=== PATIENT | male | born 1955 | race Caucasian/White ===

== ENCOUNTER 2017-07-18 15:42 | Inpatient (IN) | payer MEDICAID, OTHER ==
[~2017-07-18] VITALS: Ht 172.7 cm; Wt 87.1 kg
[2017-07-18 16:08] VITALS: BP 114/76
--- NOTE | 2017-07-18 16:35 | Physical Therapy Evaluation ---
PT Evaluation-General Medical Diagnosis Admission Date 07/18/2017 Medical Diagnosis: Lewy Body dementia Onset Date: Jul 11, 2017 Therapy Diagnosis Therapy Diagnosis: weakness; abn gait Precautions Precautions/Isolations: Standard Precautions Referral Physician: James Reason for Referral: Evaluation/Treatment Medical History Pertinent Medical History: HTN Additional Medical History anxiety, LBP Current History Pt admitted for aggressive rehab post acute admit at [facility] with progressive rigidity, stiffness, restlessness, shuffling gait and freezing episodes. Diagnosis of Lewy Body Dementia. Reviewed History: Yes Social History Home: Single Level Current Living Status: Spouse Entry Into Home: Stairs Without Railing (3) Prior/Core FIM Prior Level of Function Functional [place] Measure 0=Not Assessed/NA 4=Minimal Assistance 1=Total Assistance 5=Supervision or Setup 2=Maximal Assistance 6=Modified [place] 3=Moderate Assistance 7=Complete [place] Bed Mobility: 7 Transfers (B,C,W/C) (FIM): 7 Gait: 7 Pt's reports until mid April, he was driving. Reports a recent "slow down" in which she has to assist with ADL's to keep him on task. PT Evaluation-Current Subjective Limited conversation. Denies pain. Agreeable to PT. Answers questions when asked. Pain Numeric Pain Scale: 0-No Pain Location: No Pain Reported Objective Patient Orientation: Person, Confused, Place, Time, Situation Problem Solving: Fair He was able to voice orientation x 4 but still seems very flat and confused like. ROM/Strength ROM Lower Extremities WNL Strenght Lower Extremities WNL Integumentary/Posture Integumentary Refer to nursing notes. Bowel Incontinence: No Bladder Incontinence: No Posture normal and symmetrical; slight rounded shoulders but not of functional concern Neuromuscular (Tone, Coordination, Reflexes) Intact and functional; Sensory Vision: Wears Glasses Hearing: Functional Hand Dominance: Right Sensation Right Lower Extremit: Intact Sensation Left Lower Extremity: Intact Transfers Functional [place] Measure 0=Not Assessed/NA 4=Minimal Assistance 1=Total Assistance 5=Supervision or Setup 2=Maximal Assistance 6=Modified [place] 3=Moderate Assistance 7=Complete IndependenceIRFPAI Quality Coding Scale 6 Independent with activity with or without an assistive device 5 Patient requires set up or clean up by helper. Patient completes activity by themselves 4 Supervision or touching assist (CGA). [place] provide cues , steadying assist 3 The helper provides less than half the effort to complete the activity 2 The helper provides more than half the effort to complete the activity 1 Dependent. The helper does all the effort to complete an activity 7 Patient refused to complete or attempt activity 9 The patient did not perform the activity before the current illness or injury 88 Not attempted due to Medical conditions or safety concerns Transfers (B, C, W/C) (FIM): 4 (CGa for safety) Roll Left to Right (QC): 5 Supine to/from Sit: 4 Sit to/from Stand: 4 bed t/f WC(FIM only if WC use): 4 Sit to Lying (QC): 4 Lying to Sitting/Side of Bed(Q: 4 Sit to Stand (QC): 4 Chair/Uvz-me-Jmvrg Xfer(QC): 4 Car Transfer (QC): 4 CGA for safety and skilled cues to sequence and for safety. Gait Mode of Locomotion: Walk Anticipated Mode of Locomotion: Walk Gait (FIM): 4 Distance (FIM): 3=150 ft Walk 10 feet (QC): 4 Walk 50 ft with 2 Turns(QC): 4 Walk 150 ft (QC): 4 Walking 10ft/uneven surface-QC: 4 Gait Assistive Device: None Comments/Gait Description Tends to be shuffled at times but not constantly; he also tends to scissor at times but again, not consistently. Heel strike and toe off noted; 2-3 unsteady episodes, but corrected with only CGA. Wheelchair Training Does the Pt Use a Wheelchair?: No Stairs Stairs (FIM): 2 Level of Assist: 4 (CGA) 1 Step (curb) (QC): 4 4 Steps (QC): 4 12 Steps (QC): 88 reciprocal gait on the steps Balance Sitting Static: Good Sitting Dynamic: Good Standing Static: Fair Standing Dynamic: Fair Picking up an Object (QC): 4 Assessment/Needs Pt presents with a flat affect, limited vocalization but does answer questions appropriately. In general he seems distracted during evaluation but follows 2- 3 step cues, completes tasks and is participatory. His gait pattern can be unsafe at times due to narrow RADHA and his standing dynamic balance seems affected. In addition, decreased awareness and problem solving may be of safety concern. he will benefit from skilled PT to work on functional safety, gait, balance and transfers as well as develop techniques to optimize safety. Rehab Potential: Good PT Short Term Goals Short Term Goals Time Frame: Jul 25, 2017 Transfers (B,C,W/C) (FIM): 5 Gait (FIM): 5 PT Health And Safety Director Goals Health And Safety Director Goals PT Health And Safety Director Goals Time Frame: Aug 01, 2017 Transfers (B,C,W/C) (FIM): 7 Sit to Lying (QC): 6 Lying-Sitting on Side/Bed(QC): 6 Sit to Stand (QC): 6 Roll Left to Right (QC): 6 Chair/Esz-jw-Qkugl Xfer(QC): 6 Car Transfer (QC): 6 Does the Patient Walk: Yes Gait (FIM): 7 Gait distance (FIM): 3=150 ft Walk 10 feet (QC): 6 Walk 10ft-Uneven Surface(QC): 6 Walk 50ft with 2 Turns (QC): 6 Walk 150 ft (QC): 6 Gait Assistive Device: None Does the Pt use WC or Scooter?: No Stairs (FIM): 7 # of Steps: 12 1 Step (curb) (QC): 6 4 Steps (QC): 6 12 Steps (QC): 6 Stairs Level Of Assist: 7 Picking up an Object (QC): 6 PT Plan Problem List Problem List: Activity Tolerance, Functional Strength, Safety, Balance, Gait, Transfer Treatment/Plan Treatment Plan: Continue Plan of Care Treatment Plan: Bed Mobility, Education, Functional Activity Fyae, Functional Strength, Group Therapy, Gait, Safety, Therapeutic Exercise, Transfers Treatment Duration: Aug 01, 2017 Frequency: Modified Program (IRF) Estimated Hrs Per Day: 1.5 hours per day Patient and/or Family Agrees t: Yes Safety Risks/Education Patient Education: Transfer Techniques, Safety Issues Teaching Recipient: Patient, Family Teaching Methods: Discussion Response to Teaching: Reinforcement Needed Time/GCodes Time In: 1605 Time Out: 1635 Total Billed Treatment Time: 30 Total Billed Treatment visit EVM 30 RICHARD BARBOUR PT Jul 18, 2017 16:35
[2017-07-18 17:52] VITALS: BP 107/73
[2017-07-18] MEDS ORDERED: PHARMACY TO DOSE IM SCH (18:30)
[2017-07-18] MEDS: LORazepam 1 MG (ATIVAN) TAB PO SCH (20:47)
[2017-07-18] MEDS: PRAZOSIN 2 MG PO SCH (20:48)
[2017-07-19 05:58] VITALS: BP 102/71
[2017-07-19] MEDS: LORazepam 1 MG (ATIVAN) TAB PO SCH ×3 (08:36→20:36)
[2017-07-19] MEDS: CYANOCOBALAMIN 500 MCG TAB (VITAMIN B-12) PO SCH (08:36)
--- NOTE | 2017-07-19 10:52 | Occupational Therapy Eval ---
OT Evaluation-General/PLF Medical Diagnosis Admission Date Jul 18, 2017 at 16:08 Medical Diagnosis: Lewy Body dementia Onset Date: Jul 11, 2017 Therapy Diagnosis Therapy Diagnosis: impaired mobility Height/Weight Height (Feet): 5 Height (Inches): 8.00 Weight (Pounds): 192 Weight (Ounces): 1.0 Precautions Precautions/Isolations: Standard Precautions Safety Interventions: Bed Exit Alarm, Move Closer to Desk, Reorient-PRN Weight Bear Status Weight Bearing Restriction: Weight Bearing/Tolerated Referral Physician: James Referral Reason: Activity Tolerance, Self Care, Evaluation/Treatment, Strengthening/ROM Medical History Pertinent Medical History: HTN Additional Medical History aphasia, encephalopathy, dysphagia, anxiety, catatonic presentation. Current History Pt. has difficulty stating history or goals. Does state that his spouse has to help him bathe, dress, and toilet. However, upon testing, pt. is able to do these things. Pt. demonstrates flat affect. Reviewed History: Yes Social History Home: Single Level Current Living Status: Spouse Entry Into Home: Stairs Without Railing (3) ADL-Prior Level of Function ADL PLOF Comments Pt. is unable to completely articulate what he needs assist with. States that his spouse helps him, but unable to say with what parts exactly. DME/Equipment: Bath Chair, Tub/Shower Occupation: Retired from [employer] Current Status Subjective Pt. does not report pain. Appearance Pt. up in chair. Agrees to shower. Mental Status/Objective Patient Orientation: Unable to Assess Current Glasses/Contacts: Yes Hand Dominance: Right Upper Extremity ROM WFL Upper Extremity Strength 5/5 with muscle testing. However, pt. states that he is weak in arms. ADL-Treatment Functional [place] Measure 0=Not Assessed/NA 4=Minimal Assistance 1=Total Assistance 5=Supervision or Setup 2=Maximal Assistance 6=Modified [place] 3=Moderate Assistance 7=Complete IndependenceIRFPAI Quality Coding Scale 6 Independent with activity with or without an assistive device 5 Patient requires set up or clean up by helper. Patient completes activity by themselves 4 Supervision or touching assist (CGA). [place] provide cues , steadying assist 3 The helper provides less than half the effort to complete the activity 2 The helper provides more than half the effort to complete the activity 1 Dependent. The helper does all the effort to complete an activity 7 Patient refused to complete or attempt activity 9 The patient did not perform the activity before the current illness or injury 88 Not attempted due to Medical conditions or safety concerns Grooming (FIM): 5 (Set up to comb hair.) Bathing (FIM): 5 (SBA to shower all parts.) Shower/Bathe Self (QC): 4 Upper Body Dressing (FIM): 5 Upper Body Dressing (QC): 4 Lower Body Dressing (FIM): 5 Lower Body Dressing (QC): 4 On/Off Footwear (QC): 4 Transfers (B, C, W/C) (FIM): 5 (Pt. requires SBA to ambulate without assistive device.) Shower Transfer (FIM): 5 Other Treatments After showering, pt. agrees to ambulate to therapy gym. Completes armbike at mod resistance to work on overall endurance and strength. No difficulty noted. Ambulated back to room. All needs met. Education OT Patient Education: Exercise program, Modified ADL techniques, Progress toward Goal/Update tx plan, Purpose of tx/functional activities, Reviewed precautions, Rehab process, Transfer techniques Teaching Recipient: Patient Teaching Methods: Demonstration, Discussion Response to Teaching: Verbalize Understanding, Return Demonstration OT Short Term Goals Short Term Goals Transfers (B,C,W/C) (FIM): 5 1=Demonstrate adherence to instructed precautions during ADL tasks. 2=Patient will verbalize/demonstrate understanding of assistive devices/ modifications for ADL. 3=Patient will improve strength/tolerance for activity to enable patient to perform ADL's. OT Broke Beater Goals Jail Goals Time Frame: Jul 26, 2017 Eating (FIM): 6 Eating (QC): 6 Groomin Oral Hygiene (QC): 6 Bathing(FIM): 5 Shower/Bathe Self (QC): 5 Upper Body Dressing(FIM): 6 Upper Body Dressing (QC): 6 Lower Body Dressing(FIM): 6 Lower Body Dressing (QC): 6 On/Off Footwear (QC): 6 Toileting(FIM): 6 Toileting Hygiene (QC): 6 Transfers (B,C,W/C) (FIM): 6 Toilet/Commode Transfer(FIM): 6 Toilet/Commode Transfer (QC): 6 Shower Transfer(FIM): 5 Additional Goals: 1-Demonstrate ADL Tasks, 2-Verbalize Understanding, 3- ImproveStrength/Faye 1=Demonstrate adherence to instructed precautions during ADL tasks. 2=Patient will verbalize/demonstrate understanding of assistive devices/ modifications for ADL. 3=Patient will improve strength/tolerance for activity to enable patient to perform ADL's. OT Education/Plan Problem List/Assessment Assessment: Decreased Activ Tolerance, Decreased Safety Aware, Impaired Cognition, Impaired I ADL's, Impaired Self-Care Skills Discharge Recommendations Plan/Recommendations: Continue POC Therapy D/C Recommendations: Home w/ Family Support Treatment Plan/Plan of Care Treatment,Training & Education: Yes Patient would benefit from OT for education, treatment and training to promote independence in ADL's, mobility, safety and/or upper extremity function for ADL' s. Plan of Care: ADL Retraining, Functional Mobility, Group Exercise/Act as Ind, UE Funct Exercise/Act Treatment Duration: Jul 26, 2017 Frequency: At least 5 of 7 days/Wk (IRF) Estimated Hrs Per Day: 1.5 hours per day Agreement: Yes Rehab Potential: Good Time/GCodes Start Time: 09:00 Stop Time: 10:00 Total Time Billed (hr/min): 60 Billed Treatment Time 1, EVM x 15minutes, ADL x 30minutes, Ex x 15minutes NATY BERGER OT Jul 19, 2017 10:52
--- NOTE | 2017-07-19 13:14 | Physical Therapy Daily Note ---
PT Daily Note-Current Subjective No complaints. Agreeable to PT. Limited verbalization. Pain Numeric Pain Scale: 0-No Pain Location: No Pain Reported Mental Status Patient Orientation: Person, Place, Time, Situation Transfers Functional [place] Measure 0=Not Assessed/NA 4=Minimal Assistance 1=Total Assistance 5=Supervision or Setup 2=Maximal Assistance 6=Modified [place] 3=Moderate Assistance 7=Complete IndependenceIRFPAI Quality Coding Scale 6 Independent with activity with or without an assistive device 5 Patient requires set up or clean up by helper. Patient completes activity by themselves 4 Supervision or touching assist (CGA). [place] provide cues , steadying assist 3 The helper provides less than half the effort to complete the activity 2 The helper provides more than half the effort to complete the activity 1 Dependent. The helper does all the effort to complete an activity 7 Patient refused to complete or attempt activity 9 The patient did not perform the activity before the current illness or injury 88 Not attempted due to Medical conditions or safety concerns Transfers (B, C, W/C) (FIM): 5 Roll Left to Right (QC): 5 Supine to/from Sit: 5 Sit to/from Stand: 5 Sit to Lying (QC): 5 Sit to Stand (QC): 5 Chair/Qsx-nw-Flhts Xfer(QC): 5 SBA with transfers for safety cues Gait Training Does the Patient Walk?: Yes Gait (FIM): 5 Distance (FIM): 3=150 ft Distance: 150 ft x 2; 300 ft x 2; 120 ft x 2 Walk 10 feet (QC): 5 Walk 50 ft with 2 Turns(QC): 5 Walk 150 ft (QC): 5 Gait Assistive Device: None Pt walked around unit as well as off the unit to increase functional distance. We used the elevators and this therapist provided cuing for him to problem solve using the buttons to retrieve and use the elevator. Gait inculded up/ down a slope that is 50 ft long; completed with SBA. Pt able to select proper buttons for use of elevator. Balance Special Test Comments Completed the Webb Balance test. Pt scored 44/56. This indicates that a cane may be beneficial for safety with gait; however, I feel that the additional device may be a tripping hazard for the patient. Treatments Functional gait and balance training. Assessment Current Status: Good Progress His balance is impaired as evidenced by score of 44/56 on the Webb. He was able to follow multi step cues and use the elevator appropriately. PT Short Term Goals Short Term Goals Time Frame: Jul 25, 2017 Transfers (B,C,W/C) (FIM): 5 Gait (FIM): 5 PT Undercoater Goals Usp Goals PT Undercoater Goals Time Frame: Aug 01, 2017 Transfers (B,C,W/C) (FIM): 7 Sit to Lying (QC): 6 Lying-Sitting on Side/Bed(QC): 6 Sit to Stand (QC): 6 Roll Left to Right (QC): 6 Chair/Fbh-nj-Ztbdb Xfer(QC): 6 Car Transfer (QC): 6 Does the Patient Walk: Yes Gait (FIM): 7 Gait distance (FIM): 3=150 ft Walk 10 feet (QC): 6 Walk 10ft-Uneven Surface(QC): 6 Walk 50ft with 2 Turns (QC): 6 Walk 150 ft (QC): 6 Gait Assistive Device: None Does the Pt use WC or Scooter?: No Stairs (FIM): 7 # of Steps: 12 1 Step (curb) (QC): 6 4 Steps (QC): 6 12 Steps (QC): 6 Stairs Level Of Assist: 7 Picking up an Object (QC): 6 PT Plan Problem List Problem List: Activity Tolerance, Functional Strength, Safety, Balance, Gait Treatment/Plan Treatment Plan: Continue Plan of Care Treatment Plan: Bed Mobility, Education, Functional Activity Faye, Functional Strength, Group Therapy, Gait, Safety, Therapeutic Exercise, Transfers Treatment Duration: Aug 01, 2017 Frequency: Modified Program (IRF) Estimated Hrs Per Day: 1.5 hours per day Patient and/or Family Agrees t: Yes Safety Risks/Education Patient Education: Safety Issues Teaching Recipient: Patient Teaching Methods: Discussion Response to Teaching: Reinforcement Needed Time/GCodes Time In: 800 Time Out: 900 Total Billed Treatment Time: 60 Total Billed Treatment visit GT 30 NM 30 RICHARD BARBOUR PT Jul 19, 2017 13:14
--- NOTE | 2017-07-19 13:29 | ST Dysphagia Evaluation ---
Speech Evaluation-General Medical Diagnosis Lewy Body Dementia Onset Date: Jul 11, 2017 Therapy Diagnosis Therapy Diagnosis: Oropharyngeal Swallow WNL Precautions Precautions/Isolations: Standard Precautions Referral Referring Physician: Dr. Eduardo Ramirez Reason for Referral: Evaluation/Treatment Clinical Bedside Swallowing Evaluation Medical History Pertinent Medical History: HTN Current History The patient was recently admitted to [facility] with a diagnosis of Lewy Body Dementia. Reviewed History: Yes Social History Current Living Status: Spouse Speech PLF/Current-Dysphagia Prior Level of Function The patient provided limited verbalization. The patient stated, "Sometimes pills feel like they stick." The patient denied signs/symptoms of aspiration with any consistency he currently consumes. The patient consumes a regular diet with thin liquids at home. Subjective The patient was seated upright in recliner upon entrance. The patient was agreeable to participation in the bedside swallowing evaluation. The patient localized the above noted globus sensation to the laryngeal region. Cognitive Status Patient Orientation: Person, Place, Time, Situation Oral Motor Skills Dentition: Natural Current Food Consistancy: Regular, Thin Liquids Oral Expression Ability: Mild Impairment Voice Voice Phonatory-Based Quality: Breathy Voice Pitch: Mildly High Voice Loudness: Moderately Soft/Quiet Face Facial Symmetry: Symmetrical Oral-Facial Assessment Oral-Facial Dentition: Normal Labial Seal Description: Normal Smile: Normal Puff Cheeks: Normal Lingual Protrusion: Normal Lingual ROM: Normal Lingual Strength: Normal Pharynx Velopharyngeal Move.: Normal Volitional Dry Swallow: Yes Dysphagia Evaluation Consistencies Presented: Regular, Thin Liquid No oral phase impairments were noted with any consistency provided. - No pharyngeal impairments were noted with any consistency provided. - No signs/symptoms of aspiration were demonstrated with any consistency provided. The patient denied a globus sensation throughout the assessment. Dietary Recommendations: Regular Liquid Recommendations: Thin Swallowing Precautions: Alternate Liquids/Solids, Small Bites and Sips, Sitting Upright 90 Degrees Dysphagia Evaluation Summary The patient demonstrated an oropharyngeal swallow function within normal limits. Speech-Plan Treatment Plan Speech Therapy Treatment Plan: Discontinue ST Evaluation, only. Frequency: Modified Program (IRF) (Evaluation, only.) Estimated Hrs Per Day: Other (Evaluation, only.) Rehab Potential: Good Safety Risks/Education Teaching Recipient: Patient Teaching Methods: Discussion Response to Teaching: Verbalize Understanding Education Topics Provided: Results, Recommendations, Plan of Care Time Speech Therapy Time In: 10:00 Speech Therapy Time Out: 10:15 Total Billed Time: 15 Billed Treatment Time 1, [place] Jul 19, 2017 13:29
--- NOTE | 2017-07-19 13:40 | ST Cognitive Linguistic Eval ---
Speech Evaluation-General Medical Diagnosis Lewy Body Dementia Onset Date: Jul 11, 2017 Therapy Diagnosis Therapy Diagnosis: Mild to Moderate Cognitive Impairment Precautions Precautions/Isolations: Standard Precautions Referral Referring Physician: Dr. Eduardo Ramirez Reason for Referral: Evaluation/Treatment Cognitive, Speech, and Language Evaluation Medical History Pertinent Medical History: HTN Current History The patient was recently admitted to [facility] with a diagnosis of Lewy Body Dementia. Reviewed History: Yes Social History Home: Single Level (Four steps for entrance.) Current Living Status: Spouse Speech PLF-Current Status Prior Level of Function The patient stated, "I have a hard time telling my feelings, like saying thank you and such." The patient denied additional difficulties with speech, language, or cognition. Subjective The patient was seated upright in recliner upon entrance. The patient greeted the clinician and was agreeable to participation in the cognitive, speech, and language evaluation. To note, the patient demonstrates an extremely flat affect and monotone expression throughout the session. Limited verbalizations are provided by the patient. Language Eval: Auditory Comprehends Simple Yes/No Ques: Functional Indent/Objects Multiple Garcia: Functional Ident/Pics in Multiple Garcia: Functional Follows 1-Step Commands: Functional Follows Complex Directions: Functional Follows General Conversations: Functional The patient displays a mild to moderate delay while following more complex instructions, however, consistently completes each instruction with high accuracy. Language Eval: Verbal Language Completes Spontaneous Greeting: Functional Produces Auto, Serial Info: Functional (Delay noted with response.) Imitates Simple Words/Phrases: Functional Word Finding: Mild (The patient is able to name nine animals in a time frame of one minute.) Requests Basic Needs: Mild (The patient appears somewhat somnolent and rarely initiates conversation or requests.) States Basic Personal Info: Functional Language Evaluation: Reading Comprehends Single Nouns: Functional Follows Simple Written Direct: Functional Comprehends Multiple Sentences: Functional Language Evaluation: Writing Copies/Traces: Functional Writes to Simple Dictation: Functional Writes Personal Information: Functional Cognitive Patient Orientation The patient is independently oriented to self, location, month, year, and day of week. Objective Cognitive Domain Attention: Mild Memory: Mild Problem Solving: Mild Visuospatial Skills: WNL Clock Drawing Severity Rating: WNL Objective Oral Motor/Speech Production The patient displays a reduced rate of speech, however, remains 100% intelligible in known and unknown contexts. Impression The patient demonstrates a mild to moderate cognitive deficit, most notably with social language and memory. Communication/Social Cognition Comprehension: 6 (Glasses.) Expression: 4 (Reduced rate of speech, poor initiation of speech/conversation) Social Interaction: 2 (Patient consitently displays a flat affect, limited eye contact, and poor initiation.) Problem Solvin Memory: 3 Speech Patient Assess Expression of Ideas/Wants: Exhibits (3) Understanding [place] Content: Usually Understands (3) Brief Interview-Mental Status: Yes Repetition of Three Words: Three (3) Temporal Orientation: Year: Correct (3) Temporal Orientation: Month: Accurate within 5 days(2) Temporal Orientation: Day: Correct (1) Recall : Wear to say "Sock": Yes,after cueing (1) Recall : Color: Yes, after cueing (1) Recall : Bed: Yes,after cueing (1) Speech Short Term Goals Short Term Goals Short Term Goals 1. The patient will recall and demonstrate three functional memory strategies for use at home with 80% accuracy and mild clinician cueing. 2. The patient will initiate a conversational topic at least one time throughout a thirty minute treatment session. 3. The patient will accurately demonstrate appropriate facial expressions and gestures towards emotional structured situations with 80% accuracy and mild clinician cueing. Time Frame-STG: Two Weeks Speech Chcf Goals [employer] Goals 1. The patient will display improved social interaction with increased periods of facial expression and conversation initiation. Time Frame: Three Weeks Comprehension: 6 Expression: 5 Social Interaction: 4 Problem Solvin Memory: 4 Speech-Plan Treatment Plan Speech Therapy Treatment Plan: Continue Plan of Care Continue skilled speech pathology to target functional social interaction and expressive language. Treatment Duration: August 09, 2017 Frequency: 3 times per week Estimated Hrs Per Day: .5 hour per day Rehab Potential: Guarded Safety Risks/Education Teaching Recipient: Patient Teaching Methods: Discussion Response to Teaching: Verbalize Understanding Education Topics Provided: Results, Recommendations, Plan of Care Time Speech Therapy Time In: 10:15 Speech Therapy Time Out: 10:30 Total Billed Time: 15 Billed Treatment Time 1 [facility] CHRIS,PACO Jul 19, 2017 13:40
[2017-07-19] MEDS ORDERED: CITA10TA7 PO (13:59)
[2017-07-19] MEDS ORDERED: PRAZ2CAP PO (13:59)
--- NOTE | 2017-07-19 14:38 | Physical Therapy Daily Note ---
PT Daily Note-Current Subjective Agreeble Transfers Functional [place] Measure 0=Not Assessed/NA 4=Minimal Assistance 1=Total Assistance 5=Supervision or Setup 2=Maximal Assistance 6=Modified [place] 3=Moderate Assistance 7=Complete IndependenceIRFPAI Quality Coding Scale 6 Independent with activity with or without an assistive device 5 Patient requires set up or clean up by helper. Patient completes activity by themselves 4 Supervision or touching assist (CGA). [place] provide cues , steadying assist 3 The helper provides less than half the effort to complete the activity 2 The helper provides more than half the effort to complete the activity 1 Dependent. The helper does all the effort to complete an activity 7 Patient refused to complete or attempt activity 9 The patient did not perform the activity before the current illness or injury 88 Not attempted due to Medical conditions or safety concerns Gait Training Gait (FIM): 5 Gait Assistive Device: None 400 ft with SBA on the unit. Pt ambulated to/from the bathroom. SBA with toilet transfers and clothing management. Pt in chair with chair alarm activitated post treatment. Exercises NuStep Minutes: 15 NuStep Workload: 4 Assessment Cooperative. Tolerated well PT Short Term Goals Short Term Goals Time Frame: Jul 25, 2017 Transfers (B,C,W/C) (FIM): 5 Gait (FIM): 5 PT Hand Braille Transcriber Goals Hand Braille Transcriber Goals PT Hand Braille Transcriber Goals Time Frame: Aug 01, 2017 Transfers (B,C,W/C) (FIM): 7 Sit to Lying (QC): 6 Lying-Sitting on Side/Bed(QC): 6 Sit to Stand (QC): 6 Roll Left to Right (QC): 6 Chair/Ywh-rz-Caajc Xfer(QC): 6 Car Transfer (QC): 6 Does the Patient Walk: Yes Gait (FIM): 7 Gait distance (FIM): 3=150 ft Walk 10 feet (QC): 6 Walk 10ft-Uneven Surface(QC): 6 Walk 50ft with 2 Turns (QC): 6 Walk 150 ft (QC): 6 Gait Assistive Device: None Does the Pt use WC or Scooter?: No Stairs (FIM): 7 # of Steps: 12 1 Step (curb) (QC): 6 4 Steps (QC): 6 12 Steps (QC): 6 Stairs Level Of Assist: 7 Picking up an Object (QC): 6 PT Plan Problem List Problem List: Activity Tolerance, Functional Strength, Safety Treatment/Plan Treatment Plan: Continue Plan of Care Treatment Plan: Bed Mobility, Education, Functional Activity Faye, Functional Strength, Group Therapy, Gait, Safety, Therapeutic Exercise, Transfers Treatment Duration: Aug 01, 2017 Frequency: Modified Program (IRF) Estimated Hrs Per Day: 1.5 hours per day Patient and/or Family Agrees t: Yes Time/GCodes Time In: 1415 Time Out: 1438 Total Billed Treatment Time: 23 Total Billed Treatment visit EX 15 Gt 8 RICHARD BARBOUR PT Jul 19, 2017 14:38
--- NOTE | 2017-07-19 15:06 | Therapy Group Daily Note ---
Therapy Daily Group Note Patient Education Topic Home Safety, Other List Below (Proper Handwashing) Exercises LE Seated Exercise, UE Exercise Other/Notes Pt ambulates to PT/OT group w/out AD. Group consisted of introductions (name, where you're from, what you like to do during the summer), socialization, Proper Handwashing, Home Safety and Seated UE/LE exercise. Pt was quite and reserved, but did complete UE/LE exercises. Pt ambulates back to room, w/out AD , to rest at end of group TX. Start Time: 13:00 Stop Time: 14:10 Total Billed Treatment Time: 70 Total Billed Treatment 1, GRP MAYTEPHUONG OTRIZ OUTSIDE OPERATOR Jul 19, 2017 15:06
[2017-07-19 17:15] VITALS: BP 113/72
[2017-07-19] MEDS: PRAZOSIN 2 MG PO SCH (20:36)
[2017-07-20 05:06] VITALS: BP 97/65
--- NOTE | 2017-07-20 09:25 | Occupational Ther Daily Note ---
OT Current Status-Daily Note Subjective "OK" Pain Numeric Pain Scale: 0-No Pain Appearance Patient supine in bed upon OT arrival. Agreeable to showering and working in the clinic. Mental Status/Objective Patient Orientation: Unable to Assess, [place] Functional [place] Measure 0=Not Assessed/NA 4=Minimal Assistance 1=Total Assistance 5=Supervision or Setup 2=Maximal Assistance 6=Modified [place] 3=Moderate Assistance 7=Complete [place] ADL-Treatment Agreed to shower this am. OT retrieved all items for patient to shower and dress. He was independent in all activities. Not very talkative but answered yes no appropriately. Functional [place] Measure 0=Not Assessed/NA 4=Minimal Assistance 1=Total Assistance 5=Supervision or Setup 2=Maximal Assistance 6=Modified [place] 3=Moderate Assistance 7=Complete IndependenceIRFPAI Quality Coding Scale 6 Independent with activity with or without an assistive device 5 Patient requires set up or clean up by helper. Patient completes activity by themselves 4 Supervision or touching assist (CGA). [place] provide cues , steadying assist 3 The helper provides less than half the effort to complete the activity 2 The helper provides more than half the effort to complete the activity 1 Dependent. The helper does all the effort to complete an activity 7 Patient refused to complete or attempt activity 9 The patient did not perform the activity before the current illness or injury 88 Not attempted due to Medical conditions or safety concerns Other Treatment Patient ambulated to the clinic without device and independently. Completed 10+ minutes of arm bike followed by klein bag toss with 1# weights to the arms x multiple reps.Completed minimal resistive theraband x 20 reps each. Tolerated all well,addressing upper body strength and endurance work for return to ADL once home. OT Short Term Goals Short Term Goals Transfers (B,C,W/C) (FIM): 5 1=Demonstrate adherence to instructed precautions during ADL tasks. 2=Patient will verbalize/demonstrate understanding of assistive devices/ modifications for ADL. 3=Patient will improve strength/tolerance for activity to enable patient to perform ADL's. OT Staff Weapons Officer Goals Retirement Goals Time Frame: Jul 26, 2017 Eating (FIM): 6 Eating (QC): 6 Groomin Oral Hygiene (QC): 6 Bathing(FIM): 5 Shower/Bathe Self (QC): 5 Upper Body Dressing(FIM): 6 Upper Body Dressing (QC): 6 Lower Body Dressing(FIM): 6 Lower Body Dressing (QC): 6 On/Off Footwear (QC): 6 Toileting(FIM): 6 Toileting Hygiene (QC): 6 Transfers (B,C,W/C) (FIM): 6 Toilet/Commode Transfer(FIM): 6 Toilet/Commode Transfer (QC): 6 Shower Transfer(FIM): 5 Comprehension(FIM): 6 Expression (FIM): 5 Social Interaction(FIM): 4 Problem Solving(FIM): 5 Memory(FIM): 4 Additional Goals: 1-Demonstrate ADL Tasks, 2-Verbalize Understanding, 3- ImproveStrength/Faye 1=Demonstrate adherence to instructed precautions during ADL tasks. 2=Patient will verbalize/demonstrate understanding of assistive devices/ modifications for ADL. 3=Patient will improve strength/tolerance for activity to enable patient to perform ADL's. OT Education/Plan Discharge Recommendations Plan/Recommendations: Continue POC Treatment Plan/Plan of Care Patient would benefit from OT for education, treatment and training to promote independence in ADL's, mobility, safety and/or upper extremity function for ADL' s. Plan of Care: ADL Retraining, Functional Mobility, Group Exercise/Act as Ind, UE Funct Exercise/Act Treatment Duration: Jul 26, 2017 Frequency: At least 5 of 7 days/Wk (IRF) Estimated Hrs Per Day: 1.5 hours per day Agreement: Yes Rehab Potential: Guarded Time/GCodes Start Time: 08:05 Stop Time: 09:05 Total Time Billed (hr/min): 60 Billed Treatment Time Visit x 1, ADL x 2, Ex x 2 RANDY ALBRIGHT OT Jul 20, 2017 09:25
[2017-07-20] MEDS: CYANOCOBALAMIN 500 MCG TAB (VITAMIN B-12) PO SCH (09:26)
[2017-07-20] MEDS: LORazepam 1 MG (ATIVAN) TAB PO SCH ×3 (09:27→21:33)
--- NOTE | 2017-07-20 11:00 | Speech Therapy Daily Note ---
Speech Daily Progress Note Subjective Date Seen by Provider: Jul 20, 2017 Time Seen by Provider: 09:00 The patient was seated upright in recliner upon entrance. The patient greeted the clinician and was agreeable to participation in the speech and language treatment session. To note, the patient did initiate a greeting on this date, however, continued to display flat affect and limited interactions following. Objective To improve therapy tasks, a more detailed evaluation was provided on this date to focus on patient's cognitive deficits. The patient participated in the Cognitive Linguistic Quick Test (CLQT) and demonstrated a score of 2.6 correlating to a mild cognitive impairment. The patient demonstrated difficulty with attention through limited story retelling and poor maze completion; difficulty with memory through poor story retelling, design memory, and generative naming; difficulty with executive functioning through poor design generation, symbol trails, and mazes. The patient's largest deficits were executive functioning and memory (moderate impairment). The patient displayed mild impairments in attention, language, and visuospatial skills. Assessment Assessment Current Status: Good Progress Treatment Plan Continue Plan of Care Communication Comprehension: 6 (Glasses.) Expression: 4 (Reduced rate of speech, poor initiation of speech/conversation) Social Cognition Social Interaction: 2 (Patient consitently displays a flat affect, limited eye contact, and poor initiation.) Problem Solvin Memory: 3 Speech Short Term Goals Short Term Goals Short Term Goals 1. The patient will recall and demonstrate three functional memory strategies for use at home with 80% accuracy and mild clinician cueing. 2. The patient will initiate a conversational topic at least one time throughout a thirty minute treatment session. 3. The patient will accurately demonstrate appropriate facial expressions and gestures towards emotional structured situations with 80% accuracy and mild clinician cueing. 4. The patient will display 70% accuracy with structured executive function tasks such as mazes, trail-making, and sequencing with mild clinician verbal prompting. Time Frame-STG: Two Weeks Speech Mcfp Goals Mcfp Goals 1. The patient will display improved social interaction with increased periods of facial expression and conversation initiation. Time Frame: Three Weeks Comprehension: 6 Expression: 5 Social Interaction: 4 Problem Solvin Memory: 4 Speech-Plan Treatment Plan Speech Therapy Treatment Plan: Continue Plan of Care Continue skilled speech pathology to target improved socialization, executive functions, and memory. Treatment Duration: August 09, 2017 Frequency: 3 times per week Estimated Hrs Per Day: .5 hour per day Rehab Potential: Guarded Safety Risks/Education Teaching Recipient: Patient Teaching Methods: Discussion Response to Teaching: Verbalize Understanding Education Topics Provided: Results, Recommendations, Plan of Care Time Speech Therapy Time In: 09:00 Speech Therapy Time Out: 10:00 Total Billed Time: 60 Billed Treatment Time 1MELIDA ELIZABETH ST Jul 20, 2017 11:00
--- NOTE | 2017-07-20 11:55 | Physical Therapy Daily Note ---
PT Daily Note-Current Subjective Long discussion attempting to facilitate STM and LTM of pts personal and medical history. Pt. agrees to rx. Pt. states that the droop of his left eye is old history and the eye Dr states " all people do that as they age" Pain Numeric Pain Scale: 0-No Pain Appearance flat affect, does not initiate conversation but responds when asked questions. Mental Status Patient Orientation: Person, Place, Time Transfers Functional [place] Measure 0=Not Assessed/NA 4=Minimal Assistance 1=Total Assistance 5=Supervision or Setup 2=Maximal Assistance 6=Modified [place] 3=Moderate Assistance 7=Complete IndependenceIRFPAI Quality Coding Scale 6 Independent with activity with or without an assistive device 5 Patient requires set up or clean up by helper. Patient completes activity by themselves 4 Supervision or touching assist (CGA). [place] provide cues , steadying assist 3 The helper provides less than half the effort to complete the activity 2 The helper provides more than half the effort to complete the activity 1 Dependent. The helper does all the effort to complete an activity 7 Patient refused to complete or attempt activity 9 The patient did not perform the activity before the current illness or injury 88 Not attempted due to Medical conditions or safety concerns Transfers (B, C, W/C) (FIM): 6 Scootin Rollin Supine to/from Sit: 7 Sit to/from Stand: 6 pt. assumed quadruped position and did crawling as well as floor TRF with CGA to SBA Gait Training Does the Patient Walk?: Yes Gait (FIM): 5 Distance (FIM): 3=150 ft (150x3) Gait Level of Assist: 5 Gait Persons Needed: 1 Gait Assistive Device: None pt. with several episodes of veering left and or slightly bumping in to obstacles on left as well as noted toe drag on left many times. Stair Training Stair Training: Handrails/: 2 handrails Stairs (FIM): 5 #of Steps: 12 Stairs: Pattern: Reciprocal Level of Assist: 5 pt. needed constant reminder and instruction to use one or both rails, when descending pts descending heel tended to scrape or not clear step and pt. needed instruction but did not always heed warning Exercises Supine Ex: Bridging, Ankle pumps, Quad Set, Rolling, Glut sets, Heel Slides, Short Arc Quads, Scooting, Straight leg raise, Hip abd/add Supine Reps: 15 Seated Therapy Exercises: Long arc quads, Hip flexion Seated Reps: 15 side lying and prone exercises with some difficulty with hip ext in prone. NuStep Minutes: 10 NuStep Workload: 3 Treatments worked on communication and expression as well as memory . Pt. made good effort and states he "just woke up one day and couldnt remember things" Balance challenged derived from GOEL for alt steps, SLS, and heel toe stance still challenge pt. see on GOEL Assessment Current Status: Good Progress pt. with noted left side eye droop and left side weakness in LLE PT Short Term Goals Short Term Goals Time Frame: Jul 25, 2017 Transfers (B,C,W/C) (FIM): 5 Gait (FIM): 5 PT Alf Goals Field Hockey Coach Goals PT Field Hockey Coach Goals Time Frame: Aug 01, 2017 Transfers (B,C,W/C) (FIM): 7 Sit to Lying (QC): 6 Lying-Sitting on Side/Bed(QC): 6 Sit to Stand (QC): 6 Roll Left to Right (QC): 6 Chair/Emx-tg-Mmynr Xfer(QC): 6 Car Transfer (QC): 6 Does the Patient Walk: Yes Gait (FIM): 7 Gait distance (FIM): 3=150 ft Walk 10 feet (QC): 6 Walk 10ft-Uneven Surface(QC): 6 Walk 50ft with 2 Turns (QC): 6 Walk 150 ft (QC): 6 Gait Assistive Device: None Does the Pt use WC or Scooter?: No Stairs (FIM): 7 # of Steps: 12 1 Step (curb) (QC): 6 4 Steps (QC): 6 12 Steps (QC): 6 Stairs Level Of Assist: 7 Picking up an Object (QC): 6 PT Plan Treatment/Plan Treatment Plan: Continue Plan of Care Treatment Plan: Bed Mobility, Education, Functional Activity Faye, Functional Strength, Group Therapy, Gait, Safety, Therapeutic Exercise, Transfers Treatment Duration: Aug 01, 2017 Frequency: Modified Program (IRF) Estimated Hrs Per Day: 1.5 hours per day Patient and/or Family Agrees t: Yes Safety Risks/Education Patient Education: Gait Training, Transfer Techniques, Steps, Correct Positioning, Disease Process, Safety Issues Teaching Recipient: Patient Teaching Methods: Demonstration, Discussion Response to Teaching: Verbalize Understanding, Return Demonstration, Reinforcement Needed Time/GCodes Time In: 1000 Time Out: 1130 Total Billed Treatment Time: 90 Total Billed Treatment 1,EX30mm,FA35m,GT25m G Codes Necessary: BRUCE Bautista [employer] HOME DEMONSTRATOR Jul 20, 2017 11:55
--- NOTE | 2017-07-20 13:37 | Occupational Ther Daily Note ---
OT Current Status-Daily Note Subjective Pt alert, sitting in recliner. Pt did not speak, did look at WHITE in acknowledgement. Mental Status/Objective Functional [place] Measure 0=Not Assessed/NA 4=Minimal Assistance 1=Total Assistance 5=Supervision or Setup 2=Maximal Assistance 6=Modified [place] 3=Moderate Assistance 7=Complete [place] ADL-Treatment Pt had wet pants on, possibly incontinent. WHITE asked if pt had any clothing to osman into and pt ambulated to closet to see. No clothing in closet so pt sat in recliner while WHITE got clothing from laundry. Pt then took clothing and set self up for shower. Pt did complete shower and dressing by self. During standing in shower, pt slight LOB though caught self. Pt then completed grooming at sink in standing. Pt was able to set self up for lunch, finger food no need for utensils. After therapy, pt sitting in recliner with call light/phone in reach. Safety measures in place. All needs met in room. Functional [place] Measure 0=Not Assessed/NA 4=Minimal Assistance 1=Total Assistance 5=Supervision or Setup 2=Maximal Assistance 6=Modified [place] 3=Moderate Assistance 7=Complete IndependenceIRFPAI Quality Coding Scale 6 Independent with activity with or without an assistive device 5 Patient requires set up or clean up by helper. Patient completes activity by themselves 4 Supervision or touching assist (CGA). [place] provide cues , steadying assist 3 The helper provides less than half the effort to complete the activity 2 The helper provides more than half the effort to complete the activity 1 Dependent. The helper does all the effort to complete an activity 7 Patient refused to complete or attempt activity 9 The patient did not perform the activity before the current illness or injury 88 Not attempted due to Medical conditions or safety concerns Eating (FIM): 6 Eating (QC): 6 Grooming (FIM): 7 Oral Hygiene (QC): 6 Bathing (FIM): 6 Shower/Bathe Self (QC): 6 Upper Body (FIM): 7 Upper Body Dressing (QC): 6 Lower Body Dressing (FIM): 7 Lower Body Dressing (QC): 6 On/Off Footwear (QC): 6 Shower Transfer(FIM): 7 OT Short Term Goals Short Term Goals Transfers (B,C,W/C) (FIM): 5 1=Demonstrate adherence to instructed precautions during ADL tasks. 2=Patient will verbalize/demonstrate understanding of assistive devices/ modifications for ADL. 3=Patient will improve strength/tolerance for activity to enable patient to perform ADL's. OT Urology Surgeon Goals Urology Surgeon Goals Time Frame: Jul 26, 2017 Eating (FIM): 6 Eating (QC): 6 Groomin Oral Hygiene (QC): 6 Bathing(FIM): 5 Shower/Bathe Self (QC): 5 Upper Body Dressing(FIM): 6 Upper Body Dressing (QC): 6 Lower Body Dressing(FIM): 6 Lower Body Dressing (QC): 6 On/Off Footwear (QC): 6 Toileting(FIM): 6 Toileting Hygiene (QC): 6 Transfers (B,C,W/C) (FIM): 6 Toilet/Commode Transfer(FIM): 6 Toilet/Commode Transfer (QC): 6 Shower Transfer(FIM): 5 Comprehension(FIM): 6 Expression (FIM): 5 Social Interaction(FIM): 4 Problem Solving(FIM): 5 Memory(FIM): 4 Additional Goals: 1-Demonstrate ADL Tasks, 2-Verbalize Understanding, 3- ImproveStrength/Faye 1=Demonstrate adherence to instructed precautions during ADL tasks. 2=Patient will verbalize/demonstrate understanding of assistive devices/ modifications for ADL. 3=Patient will improve strength/tolerance for activity to enable patient to perform ADL's. OT Education/Plan Discharge Recommendations Plan/Recommendations: Continue POC Treatment Plan/Plan of Care Patient would benefit from OT for education, treatment and training to promote independence in ADL's, mobility, safety and/or upper extremity function for ADL' s. Plan of Care: ADL Retraining, Functional Mobility, Group Exercise/Act as Ind, UE Funct Exercise/Act Treatment Duration: Jul 26, 2017 Frequency: At least 5 of 7 days/Wk (IRF) Estimated Hrs Per Day: 1.5 hours per day Agreement: Yes Rehab Potential: Guarded Time/GCodes Start Time: 12:15 Stop Time: 12:45 Total Time Billed (hr/min): 30 Billed Treatment Time 1 visit-ADL 2 (30 min) RICHARD HERNANDEZ Jul 20, 2017 13:37
--- NOTE | 2017-07-20 14:32 | Therapy Group Daily Note ---
Therapy Daily Group Note Patient Education Topic Home Safety, Other List Below (What is a Stroke, S/S, Risk Factors, Prevention and BP & P Taken ) Exercises LE Seated Exercise, UE Exercise Other/Notes Pt ambulated to group w/out AD. Group consisted of introductions and daily question (Name, Where From, answered question that involved memory and critical thinking), UE/LE EX, Topic of Discussion "What is a Stroke, S/S, Risk Factors, Prevention". Pt tended to not participate unless prompted to do so. Per part of the Topic Discussion, pts BP & P were taken. BP 103/70 P 77 Pt returned to room at end of group, with nurse call, phone, chair alarm on. Start Time: 13:00 Stop Time: 14:00 Total Billed Treatment Time: 60 Total Billed Treatment 1, GRP GREG WATERS PT Jul 20, 2017 14:32
[2017-07-20 17:24] VITALS: BP 108/61
[2017-07-20] MEDS: PRAZOSIN 2 MG PO SCH (21:34)
[2017-07-21 06:00] VITALS: BP 103/68
[2017-07-21] MEDS: CYANOCOBALAMIN 500 MCG TAB (VITAMIN B-12) PO SCH (08:37)
[2017-07-21] MEDS: LORazepam 1 MG (ATIVAN) TAB PO SCH ×3 (08:39→21:11)
--- NOTE | 2017-07-21 10:14 | Physical Therapy Daily Note ---
PT Daily Note-Current Subjective Pt. more flat in affect. Min to no eye contact, non verbal unless really encouraged to respond. needed many cues and instruction to follow task commands Pain Numeric Pain Scale: 0-No Pain Transfers Functional [place] Measure 0=Not Assessed/NA 4=Minimal Assistance 1=Total Assistance 5=Supervision or Setup 2=Maximal Assistance 6=Modified [place] 3=Moderate Assistance 7=Complete IndependenceIRFPAI Quality Coding Scale 6 Independent with activity with or without an assistive device 5 Patient requires set up or clean up by helper. Patient completes activity by themselves 4 Supervision or touching assist (CGA). [place] provide cues , steadying assist 3 The helper provides less than half the effort to complete the activity 2 The helper provides more than half the effort to complete the activity 1 Dependent. The helper does all the effort to complete an activity 7 Patient refused to complete or attempt activity 9 The patient did not perform the activity before the current illness or injury 88 Not attempted due to Medical conditions or safety concerns Transfers (B, C, W/C) (FIM): 5 Scootin Rollin Supine to/from Sit: 6 Sit to/from Stand: 5 Bed to/from Chair: 5 Car Transfer (QC): 5 Gait Training Does the Patient Walk?: Yes Gait (FIM): 5 Distance (FIM): 3=150 ft (175x3) Gait Level of Assist: 5 Gait Persons Needed: 1 Gait Assistive Device: FWW pt. with diminished balance this date without AD, initiated instruction/use of FWW. pt. with safer gait but needed instruction to use device, pt. running device in to objects and wall x 3 with little regard when warned against it prior to incident Balance Special Test Comments SBA to Mod I car TRF Exercises NuStep Minutes: 10 NuStep Workload: 4 Treatments nustep for coordination of LEs, leg presses on Nustep x 10 after Assessment Current Status: Fair Progress needs AD this date, diminished balance PT Short Term Goals Short Term Goals Time Frame: Jul 25, 2017 Transfers (B,C,W/C) (FIM): 5 Gait (FIM): 5 PT Alf Goals Alf Goals PT Alf Goals Time Frame: Aug 01, 2017 Transfers (B,C,W/C) (FIM): 7 Sit to Lying (QC): 6 Lying-Sitting on Side/Bed(QC): 6 Sit to Stand (QC): 6 Rollin Roll Left to Right (QC): 6 Chair/Csr-ge-Mgnqe Xfer(QC): 6 Car Transfer (QC): 6 Does the Patient Walk: Yes Gait (FIM): 7 Gait distance (FIM): 3=150 ft Walk 10 feet (QC): 6 Walk 10ft-Uneven Surface(QC): 6 Walk 50ft with 2 Turns (QC): 6 Walk 150 ft (QC): 6 Gait Assistive Device: None Does the Pt use WC or Scooter?: No Stairs (FIM): 7 # of Steps: 12 1 Step (curb) (QC): 6 4 Steps (QC): 6 12 Steps (QC): 6 Stairs Level Of Assist: 7 Picking up an Object (QC): 6 PT Plan Treatment/Plan Treatment Plan: Continue Plan of Care Treatment Plan: Bed Mobility, Education, Functional Activity Faye, Functional Strength, Group Therapy, Gait, Safety, Therapeutic Exercise, Transfers Treatment Duration: Aug 01, 2017 Frequency: Modified Program (IRF) Estimated Hrs Per Day: 1.5 hours per day Patient and/or Family Agrees t: Yes Safety Risks/Education Patient Education: Gait Training, Transfer Techniques, Correct Positioning, Safety Issues Teaching Recipient: Patient Teaching Methods: Demonstration, Discussion Response to Teaching: Verbalize Understanding, Return Demonstration, Reinforcement Needed Time/GCodes Time In: 930 Time Out: 1000 Total Billed Treatment Time: 30 Total Billed Treatment 1,EX10m,GT20m G Codes Necessary: BRUCE Bautista PUBLIC HEALTH PHYSICIAN Jul 21, 2017 10:14
--- NOTE | 2017-07-21 14:22 | Consultation ([facility]) ---
HPI History of Present Illness: 62 yo M transferred from after hospitalization for rapidly progressive dementia. Patient has now been transferred to the rehab unit and we have been asked to consult. Upon chart review patient was diagnosed with Lewy body dementia and presented in a catatonic state to . He was seen by neurology and psych and showed some improvement after he was started on medications. Patient is now verbal and answering questions appropriately. He has been participating in PT and has been showing improvement. Patient has a h/o anxiety and HTN prior to hospitalization. He denies any other medical problems. Source: patient, old records Exam Limitations: no limitations Date seen by provider: Jul 21, 2017 Time Seen by Provider: 12:45 Attending Physician Eduardo Ramirez MD [facility] Consult Date of Admission Jul 18, 2017 at 16:08 Home Medications Home Medications Reviewed patient Home Medication Reconciliation performed by pharmacy medication reconciliations substation maintenance technician and/or nursing. Patients Allergies have been reviewed. Allergies Coded Allergies: No Known Allergies (Verified Allergy, Unknown, 07/18/17) [id number] Hx Patient Social History Living Status: Lives with Alcohol Use: Denies Use Recreational Drug Use: No Smoking Status: Never a Smoker Recent Foreign Travel: No Contact w/other who traveled: No Recent Hopitalizations: Yes Recent Infectious Disease Expo: No Physical Abuse Screen: No Sexual Abuse: No Past Medical History Anxiety HTN Family Medical History Family History: FH: dementia G8 SISTER FH: neurologic disorder G8 SISTER Review of Systems ([facility]) Constitutional: No chills, No fever; malaise, weakness EENTM: no symptoms reported Respiratory: no symptoms reported; No cough, No dyspnea on exertion, No short of breath Cardiovascular: no symptoms reported; No chest pain, No edema, No palpitations Gastrointestinal: no symptoms reported; No abdominal pain, No constipation, No diarrhea, No nausea, No vomiting Genitourinary: no symptoms reported; No dysuria, No frequency, No hematuria Musculoskeletal: no symptoms reported; No back pain, No joint pain, No muscle pain Skin: No lesions, No rash Psychiatric/Neurological: Depressed; Denies Headache, Denies Numbness Physical Exam-([facility]) Physical Exam Vital Signs VS - Last 72 Hours, by Label 07/18/17 07/18/17 07/18/17 07/18/17 16:08 16:56 17:52 21:00 Temp 97.0 97.1 Pulse 77 75 Resp 18 18 B/P (MAP) 114/76 (89) 107/73 (84) Pulse Ox 98 98 98 O2 Delivery Room Air Room Air Room Air 07/19/17 07/19/17 07/19/17 07/19/17 05:58 09:32 17:15 20:30 Temp 97.9 98.1 Pulse 89 78 Resp 18 18 B/P (MAP) 102/71 (81) 113/72 (86) Pulse Ox 97 97 O2 Delivery Room Air Room Air Room Air 07/20/17 07/20/17 07/20/17 07/20/17 05:06 08:44 17:24 21:00 Temp 97.4 97.8 Pulse 70 81 Resp 18 18 B/P (MAP) 97/65 (76) 108/61 (77) Pulse Ox 94 98 O2 Delivery Room Air Room Air Room Air Room Air 07/21/17 07/21/17 06:00 09:00 Temp 97.0 Pulse 61 Resp 18 B/P (MAP) 103/68 (80) Pulse Ox 94 O2 Delivery Room Air Room Air Capillary Refill : General Appearance: WD/WN, no apparent distress HEENT: PERRL/EOMI Neck: non-tender, full range of motion Respiratory: chest non-tender, lungs clear, normal breath sounds, no respiratory distress, no accessory muscle use Cardiovascular: normal peripheral pulses, regular rate, rhythm, no edema, no murmur Gastrointestinal: normal bowel sounds, non tender, soft, no organomegaly Extremities: no pedal edema, no calf tenderness Neurologic/Psychiatric: 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-XII nml as tested, alert Skin: normal color, warm/dry Lymphatic: no adenopathy Assessment/Plan Assessment/Plan Admission Status: Inpatient Order (span 2 midnights) Reason for Inpatient Admission: rehab (1) Lewy body dementia with behavioral disturbance Status: Acute Assessment & Plan: - Continue Ativan (2) HTN (hypertension) Status: Chronic Assessment & Plan: - Well controlled Qualifiers: Qualified Codes: I10 - Essential (primary) hypertension (3) Anxiety Status: Chronic Assessment & Plan: - Patient states that it is controlled at this time Clinical Quality Measures DVT/VTE Risk/Contraindication: Risk Factor Score Per Nursin RFS Level Per Nursing on Admit: 2=Moderate NICOLE RODRIGUEZ MD Jul 21, 2017 14:22
[2017-07-21 17:31] VITALS: BP 96/60
[2017-07-21] MEDS: PRAZOSIN 2 MG PO SCH (21:11)
[2017-07-22 05:44] VITALS: BP 108/73
[2017-07-22] MEDS: CYANOCOBALAMIN 500 MCG TAB (VITAMIN B-12) PO SCH (09:20)
[2017-07-22] MEDS: LORazepam 1 MG (ATIVAN) TAB PO SCH ×3 (09:20→20:40)
[2017-07-22 17:30] VITALS: BP 99/66
[2017-07-22] MEDS: PRAZOSIN 2 MG PO SCH (21:33)
[2017-07-22 21:34] VITALS: BP 102/73
[2017-07-23 05:57] VITALS: BP 104/71
[2017-07-23] MEDS: LORazepam 1 MG (ATIVAN) TAB PO SCH ×3 (08:28→20:58)
[2017-07-23] MEDS: CYANOCOBALAMIN 500 MCG TAB (VITAMIN B-12) PO SCH (08:28)
--- NOTE | 2017-07-23 10:00 | Physical Therapy Daily Note ---
PT Daily Note-Current Subjective Patient in recliner pre tx, agrees to PT, no complaints of pain. Appearance Patient in recliner post tx with nurse call, phone, tray, all needs met. Mental Status Patient Orientation: Person, Place, Situation Transfers Functional [place] Measure 0=Not Assessed/NA 4=Minimal Assistance 1=Total Assistance 5=Supervision or Setup 2=Maximal Assistance 6=Modified [place] 3=Moderate Assistance 7=Complete IndependenceIRFPAI Quality Coding Scale 6 Independent with activity with or without an assistive device 5 Patient requires set up or clean up by helper. Patient completes activity by themselves 4 Supervision or touching assist (CGA). [place] provide cues , steadying assist 3 The helper provides less than half the effort to complete the activity 2 The helper provides more than half the effort to complete the activity 1 Dependent. The helper does all the effort to complete an activity 7 Patient refused to complete or attempt activity 9 The patient did not perform the activity before the current illness or injury 88 Not attempted due to Medical conditions or safety concerns Transfers (B, C, W/C) (FIM): 5 Scootin Rollin Roll Left to Right (QC): 6 Supine to/from Sit: 6 Sit to/from Stand: 6 Sit to Lying (QC): 6 Sit to Stand (QC): 6 Chair/Nrq-zy-Wzlbp Xfer(QC): 4 Bed to/from Chair: 5 Car Transfer (QC): 6 Patient just needs SBA for transfers, occasional cues for direction Gait Training Gait (FIM): 5 Distance: 300'x2 Gait Level of Assist: 5 Gait Persons Needed: 1 Gait Assistive Device: None Patient has steady ambulation, no LOB, occasional cues for direction Stair Training Stair Training: Handrails/: 1 handrail Stairs (FIM): 5 #of Steps: 12 Stairs: Pattern: Reciprocal Level of Assist: 5 Exercises Supine Ex: Bridging, Ankle pumps, Quad Set, Glut sets, Heel Slides, Short Arc Quads, Straight leg raise, Hip abd/add Supine Reps: 20 Standing: Hip Abduction, Hamstring curls, Heel/toe raises, Marching, Mini squats Standing Reps: 20 NuStep Minutes: 15 NuStep Workload: 5 Treatments bed mobility, transfers, ambulation, functional strengthening Assessment Current Status: Fair Progress improved general mobility PT Short Term Goals Short Term Goals Time Frame: Jul 25, 2017 Transfers (B,C,W/C) (FIM): 5 Gait (FIM): 5 PT Clinic Charge Nurse Goals Clinic Charge Nurse Goals PT Assisted Goals Time Frame: Aug 01, 2017 Transfers (B,C,W/C) (FIM): 7 Sit to Lying (QC): 6 Lying-Sitting on Side/Bed(QC): 6 Sit to Stand (QC): 6 Rollin Roll Left to Right (QC): 6 Chair/Sen-qi-Uieqm Xfer(QC): 6 Car Transfer (QC): 6 Does the Patient Walk: Yes Gait (FIM): 7 Gait distance (FIM): 3=150 ft Walk 10 feet (QC): 6 Walk 10ft-Uneven Surface(QC): 6 Walk 50ft with 2 Turns (QC): 6 Walk 150 ft (QC): 6 Gait Assistive Device: None Does the Pt use WC or Scooter?: No Stairs (FIM): 7 # of Steps: 12 1 Step (curb) (QC): 6 4 Steps (QC): 6 12 Steps (QC): 6 Stairs Level Of Assist: 7 Picking up an Object (QC): 6 PT Plan Problem List Problem List: Activity Tolerance, Functional Strength, Safety, Balance, Gait, Transfer Treatment/Plan Treatment Plan: Continue Plan of Care Treatment Plan: Bed Mobility, Education, Functional Activity Faye, Functional Strength, Group Therapy, Gait, Safety, Therapeutic Exercise, Transfers Treatment Duration: Aug 01, 2017 Frequency: Modified Program (IRF) Estimated Hrs Per Day: 1.5 hours per day Patient and/or Family Agrees t: Yes Safety Risks/Education Patient Education: Gait Training, Transfer Techniques, Correct Positioning, Safety Issues Teaching Recipient: Patient Teaching Methods: Demonstration, Discussion Response to Teaching: Reinforcement Needed Time/GCodes Time In: 900 Time Out: 1000 Total Billed Treatment Time: 60 Total Billed Treatment 1 visit EX 40' GT 20' GREG WATERS PT Jul 23, 2017 10:00
--- NOTE | 2017-07-23 11:10 | Speech Therapy Daily Note ---
Speech Daily Progress Note Subjective Date Seen by Provider: Jul 23, 2017 Time Seen by Provider: 10:00 The patient was seated upright in recliner upon entrance. The patient responded to the clinician's greeting and asked a return question (which is an improvement in comparison to the prior sessions). The patient was agreeable to participation in the speech, language, and cognitive therapy session. Objective To work towards executive function tasks, as well as, functional information the patient was provided exercises from the HERB (Assessment of Language Related Functional Activities). The patient displayed the below results with mild verbal prompting throughout each task: - Telling Time: The patient was asked to state the name as placed by the clinician on an analog clock. The patient displayed 60% accuracy misinterpreting the minute and hour hand on one occasion, as well as, stating the hour ahead in two situations. The patient displayed improved accuracy with verbal prompts to 80%. - Addressing and Envelope: The patient was able to address an envelope to a specific recipient, as well as, place his return address. The patient displayed 90% accuracy, as he was unable to provide his correct zip code. - Solving Daily Math Problems: The patient was asked functional math problems such as recipe adjustments, time calculations, and bill/coin addition. The patient displayed 60% accuracy with this task with mild clinician verbal prompting. In attempts to increase verbalizations and topic initiation, the patient was asked specific questions and asked to provide appropriate responses. The patient completed the task with high accuracy, however, prompts were required for increased length of responses. Additionally, the patient was asked situational questions. The patient displays good accuracy with this task, requiring prompting for increased length of responses. To note, the patient displayed slightly improved affect on this date. Assessment Assessment Current Status: Good Progress Treatment Plan Continue Plan of Care Communication Comprehension: 6 (Glasses.) Expression: 4 (Reduced rate of speech, poor initiation of speech/conversation) Social Cognition Social Interaction: 2 (Patient consitently displays a flat affect, limited eye contact, and poor initiation.) Problem Solvin Memory: 3 Speech Short Term Goals Short Term Goals Short Term Goals 1. The patient will recall and demonstrate three functional memory strategies for use at home with 80% accuracy and mild clinician cueing. 2. The patient will initiate a conversational topic at least one time throughout a thirty minute treatment session. PROGRESSING, IMPROVEMENT NOTED (). 3. The patient will accurately demonstrate appropriate facial expressions and gestures towards emotional structured situations with 80% accuracy and mild clinician cueing. 4. The patient will display 70% accuracy with structured executive function tasks such as mazes, trail-making, and sequencing with mild clinician verbal prompting. INITIATED (07/23/2017) Time Frame-STG: Two Weeks Speech [facility] Goals Business Process Associate Goals 1. The patient will display improved social interaction with increased periods of facial expression and conversation initiation. Time Frame: Three Weeks Comprehension: 6 Expression: 5 Social Interaction: 4 Problem Solvin Memory: 4 Speech-Plan Treatment Plan Speech Therapy Treatment Plan: Continue Plan of Care Continue skilled speech pathology to target topic initiation and expressive language. Treatment Duration: August 09, 2017 Frequency: 3 times per week Estimated Hrs Per Day: .5 hour per day Rehab Potential: Guarded Safety Risks/Education Teaching Recipient: Patient Teaching Methods: Discussion Response to Teaching: Return Demonstration Education Topics Provided: Orientation Strategies, Topic Initiation Discharge Recommendations Speech Therapy Outpatient Time Speech Therapy Time In: 10:00 Speech Therapy Time Out: 11:00 Total Billed Time: 60 Billed Treatment Time KwasiMELIDA ELIZABETH ST Jul 23, 2017 11:10
--- NOTE | 2017-07-23 12:00 | Occupational Ther Daily Note ---
OT Current Status-Daily Note Subjective Pt in bed, agrees to treatment. No c/o pain. Mental Status/Objective Functional [place] Measure 0=Not Assessed/NA 4=Minimal Assistance 1=Total Assistance 5=Supervision or Setup 2=Maximal Assistance 6=Modified [place] 3=Moderate Assistance 7=Complete [place] ADL-Treatment Supine to sit with modified independence. Sit to stand with modified independence. Pt retrieved clothing from closet without assistance. Transfer to [facility] over toilet with modified independence. Pt able to complete toileting hygiene and clothing management without assistance. [place] clothing without assist. Pt transferred to walk in shower with modified independence. Bathing completed using hand held shower. Pt able to wash/dry all areas with modified independence. Pt completed dressing tasks with modified independence. Stood with good balance during pant hike. Dons socks and shoes with modified independence. Pt stood at sink to brush teeth and comb hair with modified independence. Functional [place] Measure 0=Not Assessed/NA 4=Minimal Assistance 1=Total Assistance 5=Supervision or Setup 2=Maximal Assistance 6=Modified [place] 3=Moderate Assistance 7=Complete IndependenceIRFPAI Quality Coding Scale 6 Independent with activity with or without an assistive device 5 Patient requires set up or clean up by helper. Patient completes activity by themselves 4 Supervision or touching assist (CGA). [place] provide cues , steadying assist 3 The helper provides less than half the effort to complete the activity 2 The helper provides more than half the effort to complete the activity 1 Dependent. The helper does all the effort to complete an activity 7 Patient refused to complete or attempt activity 9 The patient did not perform the activity before the current illness or injury 88 Not attempted due to Medical conditions or safety concerns Grooming (FIM): 6 Bathing (FIM): 6 Upper Body (FIM): 6 Lower Body Dressing (FIM): 6 On/Off Footwear (QC): 6 Toileting (FIM): 6 Toilet/Commode Transfer (FIM): 6 Shower Transfer(FIM): 6 Other Treatment Gait to therapy gym. Arm bike x12 minutes to increase overall strength and activity tolerance needed for functional tasks. Pt completed activity with moderate resistance and slow pace. No rest breaks needed. Fine motor task with nuts and bolts with 1# weights in place to increase strength and coordination skills. Pt able to complete task without difficulty. Pt completed putty activity with bilateral hands to increase strength and coordination. Pt able to remove small beads from putty without assistance. Pt returned to room, sitting in chair with needs met and chair alarm in place after session. OT Short Term Goals Short Term Goals Transfers (B,C,W/C) (FIM): 5 1=Demonstrate adherence to instructed precautions during ADL tasks. 2=Patient will verbalize/demonstrate understanding of assistive devices/ modifications for ADL. 3=Patient will improve strength/tolerance for activity to enable patient to perform ADL's. OT Asset Manager Goals Long-Term Goals Time Frame: Jul 26, 2017 Eating (FIM): 6 Eating (QC): 6 Groomin Oral Hygiene (QC): 6 Bathing(FIM): 5 Shower/Bathe Self (QC): 5 Upper Body Dressing(FIM): 6 Upper Body Dressing (QC): 6 Lower Body Dressing(FIM): 6 Lower Body Dressing (QC): 6 On/Off Footwear (QC): 6 Toileting(FIM): 6 Toileting Hygiene (QC): 6 Transfers (B,C,W/C) (FIM): 6 Toilet/Commode Transfer(FIM): 6 Toilet/Commode Transfer (QC): 6 Shower Transfer(FIM): 5 Comprehension(FIM): 6 Expression (FIM): 5 Social Interaction(FIM): 4 Problem Solving(FIM): 5 Memory(FIM): 4 Additional Goals: 1-Demonstrate ADL Tasks, 2-Verbalize Understanding, 3- ImproveStrength/Faye 1=Demonstrate adherence to instructed precautions during ADL tasks. 2=Patient will verbalize/demonstrate understanding of assistive devices/ modifications for ADL. 3=Patient will improve strength/tolerance for activity to enable patient to perform ADL's. OT Education/Plan Discharge Recommendations Plan/Recommendations: Continue POC Treatment Plan/Plan of Care Patient would benefit from OT for education, treatment and training to promote independence in ADL's, mobility, safety and/or upper extremity function for ADL' s. Plan of Care: ADL Retraining, Functional Mobility, Group Exercise/Act as Ind, UE Funct Exercise/Act Treatment Duration: Jul 26, 2017 Frequency: At least 5 of 7 days/Wk (IRF) Estimated Hrs Per Day: 1.5 hours per day Agreement: Yes Rehab Potential: Guarded Time/GCodes Start Time: 08:00 Stop Time: 09:00 Total Time Billed (hr/min): 60 Billed Treatment Time 1 visit, ADLx2(30minutes), EXx2(30minutes) LORIN URIARTE OT Jul 23, 2017 12:00
--- NOTE | 2017-07-23 12:02 | Occupational Ther Daily Note ---
OT Current Status-Daily Note Subjective Pt sitting in chair, agreeable. Mental Status/Objective Functional [place] Measure 0=Not Assessed/NA 4=Minimal Assistance 1=Total Assistance 5=Supervision or Setup 2=Maximal Assistance 6=Modified [place] 3=Moderate Assistance 7=Complete [place] ADL-Treatment Functional [place] Measure 0=Not Assessed/NA 4=Minimal Assistance 1=Total Assistance 5=Supervision or Setup 2=Maximal Assistance 6=Modified [place] 3=Moderate Assistance 7=Complete IndependenceIRFPAI Quality Coding Scale 6 Independent with activity with or without an assistive device 5 Patient requires set up or clean up by helper. Patient completes activity by themselves 4 Supervision or touching assist (CGA). [place] provide cues , steadying assist 3 The helper provides less than half the effort to complete the activity 2 The helper provides more than half the effort to complete the activity 1 Dependent. The helper does all the effort to complete an activity 7 Patient refused to complete or attempt activity 9 The patient did not perform the activity before the current illness or injury 88 Not attempted due to Medical conditions or safety concerns Other Treatment Pt completed bilateral UE exercises to increase strength needed for ADLs and transfers. Pt performed shoulder flexion, abduction, biceps curls, and triceps extension exercises x20 reps with minimal resistance (yellow) theraband. Rest breaks taken between exercises. Occasional cues for exercise technique. Pt sitting in chair with needs met and chair alarm in place after session. OT Short Term Goals Short Term Goals Transfers (B,C,W/C) (FIM): 5 1=Demonstrate adherence to instructed precautions during ADL tasks. 2=Patient will verbalize/demonstrate understanding of assistive devices/ modifications for ADL. 3=Patient will improve strength/tolerance for activity to enable patient to perform ADL's. OT Prison Goals Welder Setter Resistance Machine Goals Time Frame: Jul 26, 2017 Eating (FIM): 6 Eating (QC): 6 Groomin Oral Hygiene (QC): 6 Bathing(FIM): 5 Shower/Bathe Self (QC): 5 Upper Body Dressing(FIM): 6 Upper Body Dressing (QC): 6 Lower Body Dressing(FIM): 6 Lower Body Dressing (QC): 6 On/Off Footwear (QC): 6 Toileting(FIM): 6 Toileting Hygiene (QC): 6 Transfers (B,C,W/C) (FIM): 6 Toilet/Commode Transfer(FIM): 6 Toilet/Commode Transfer (QC): 6 Shower Transfer(FIM): 5 Comprehension(FIM): 6 Expression (FIM): 5 Social Interaction(FIM): 4 Problem Solving(FIM): 5 Memory(FIM): 4 Additional Goals: 1-Demonstrate ADL Tasks, 2-Verbalize Understanding, 3- ImproveStrength/Faye 1=Demonstrate adherence to instructed precautions during ADL tasks. 2=Patient will verbalize/demonstrate understanding of assistive devices/ modifications for ADL. 3=Patient will improve strength/tolerance for activity to enable patient to perform ADL's. OT Education/Plan Discharge Recommendations Plan/Recommendations: Continue POC Treatment Plan/Plan of Care Patient would benefit from OT for education, treatment and training to promote independence in ADL's, mobility, safety and/or upper extremity function for ADL' s. Plan of Care: ADL Retraining, Functional Mobility, Group Exercise/Act as Ind, UE Funct Exercise/Act Treatment Duration: Jul 26, 2017 Frequency: At least 5 of 7 days/Wk (IRF) Estimated Hrs Per Day: 1.5 hours per day Agreement: Yes Rehab Potential: Guarded Time/GCodes Start Time: 11:30 Stop Time: 11:45 Total Time Billed (hr/min): 15 Billed Treatment Time 1 visit, EX(15minutes) LORIN URIARTE OT Jul 23, 2017 12:02
[2017-07-23 17:37] VITALS: BP 113/75
[2017-07-23] MEDS: PRAZOSIN 2 MG PO SCH (20:58)
[2017-07-24 05:41] VITALS: BP 112/77
[2017-07-24] MEDS: LORazepam 1 MG (ATIVAN) TAB PO SCH ×3 (08:32→21:17)
[2017-07-24] MEDS: CYANOCOBALAMIN 500 MCG TAB (VITAMIN B-12) PO SCH (08:32)
--- NOTE | 2017-07-24 10:06 | Speech Therapy Daily Note ---
Speech Daily Progress Note Subjective Date Seen by Provider: Jul 24, 2017 Time Seen by Provider: 09:00 The patient was seated upright in recliner upon entrance. The patient's recliner was not locked, therefore, it was placed in the locked position by the clinician for his safety. The patient greeted the clinician and was agreeable to participation in the cognitive, speech, and language treatment session. To note, the patient stated, "I guess that's what they said" in response to discussions regarding his discharge. The patient stated he has not made the progress she wished throughout speech therapy. As this is only the third day the clinician has worked with the patient (patient arrived 07/19), large progress was not expected (mostly due to his short stay). The clinician discussed continued progress and appropriateness for outpatient therapy where speech improvements can be made over a period of months. The patient was agreeable to this plan of care. Objective Functional Memory Strategies: External and internal functional memory strategies were extensively discussed on this date. Per patient, he keeps a calendar at his home in his bedroom. The patient reports writing all important appointments and information on the calendar and checking the calendar daily, usually in the morning. Additionally, the patient uses a pill box to keep track of his medication. The patient was encouraged to follow a routine to aid in recall of information as the disease progresses, as well as, a memory log. Visual Memory: The patient was provided a box with three images. The patient was asked to look at the items and code the items in his memory using the strategies discussed. Following coding, the patient was asked to draw the images how they appeared. The patient demonstrated difficulty with this exercise , as well as, following the directions. With moderate clinician verbal cueing, the patient displayed approximately 40% accuracy. Functional Tasks: Functional tasks were continued today with the below results: - Check Writing: The patient was able to accurately write a check for a specific bill, as well as, record the check in a checkbook register. - Reading Instructions: The patient displayed 70% accuracy reading daily instructions, such as recipes, TV guides, and directions. - Calendar Use: The patient displayed 90% accuracy using a calender and daily project planner. Assessment Assessment Current Status: Fair Progress Treatment Plan Continue Plan of Care Communication Comprehension: 6 (Glasses.) Expression: 4 (Reduced rate of speech, poor initiation of speech/conversation) Social Cognition Social Interaction: 2 (Patient consitently displays a flat affect, limited eye contact, and poor initiation.) Problem Solvin Memory: 3 Speech Short Term Goals Short Term Goals Short Term Goals 1. The patient will recall and demonstrate three functional memory strategies for use at home with 80% accuracy and mild clinician cueing. 2. The patient will initiate a conversational topic at least one time throughout a thirty minute treatment session. PROGRESSING, IMPROVEMENT NOTED (). 3. The patient will accurately demonstrate appropriate facial expressions and gestures towards emotional structured situations with 80% accuracy and mild clinician cueing. 4. The patient will display 70% accuracy with structured executive function tasks such as mazes, trail-making, and sequencing with mild clinician verbal prompting. INITIATED (07/23/2017) Time Frame-STG: Two Weeks Speech Venetian Blind Cleaner And Repairer Goals Venetian Blind Cleaner And Repairer Goals 1. The patient will display improved social interaction with increased periods of facial expression and conversation initiation. Time Frame: Three Weeks Comprehension: 6 (MET) Expression: 5 (NOT MET; The patient participated in speech therapy for three sessions prior to discharge. An increased period of time would be necessary to experience improvements. The patient is appropriate for outpatient therapy, where progress can be measured over a period of months.) Social Interaction: 4 (NOT MET; The patient intermittently demonstrated improvement with affect and initiation, however, it appeared directly related to the proximity of his Ativan to treatment.) Problem Solvin (NOT MET; NOT MET; The patient participated in speech therapy for three sessions prior to discharge. An increased period of time would be necessary to experience improvements. The patient is appropriate for outpatient therapy, where progress can be measured over a period of months.) Memory: 4 (NOT MET; NOT MET; The patient participated in speech therapy for three sessions prior to discharge. An increased period of time would be necessary to experience improvements. The patient is appropriate for outpatient therapy, where progress can be measured over a period of months.) Speech-Plan Treatment Plan Speech Therapy Treatment Plan: Continue Plan of Care Continue skilled speech pathology on an outpatient basis secondary to planned discharge on 07/25/2017. Treatment Duration: August 09, 2017 Frequency: 3 times per week Estimated Hrs Per Day: .5 hour per day Rehab Potential: Guarded Safety Risks/Education Teaching Recipient: Patient Teaching Methods: Demonstration, Handout, Discussion Response to Teaching: Return Demonstration, Reinforcement Needed Education Topics Provided: Functional Memory Strategies Time Speech Therapy Time In: :00 Speech Therapy Time Out: 10:00 Total Billed Time: 60 Billed Treatment Time 1, PACO CISNEROS Jul 24, 2017 10:06
--- NOTE | 2017-07-24 10:23 | Therapy Team Discharge Summary ---
Therapy Discharge Summary Discharge Recommendations Date of Discharge 07/25/2017 Therapy D/C Recommendations: Speech Therapy Outpatient Occupational Therapy Decreased Activ Tolerance, Decreased Safety Aware, Impaired Cognition, Impaired I ADL's, Impaired Self-Care Skills Speech-Language Pathology The patient was recently admitted to [facility] (07/18/17) with a diagnosis of Lewy Body Dementia. Upon admission, the patient displayed a mild to moderate cognitive deficit in the areas of memory, attention, visuospatial skills, and executive functioning. Skilled speech pathology focused on functional memory strategies, functional tasks, visual memory, and improved social language (interaction/initiation). The patient has not met the initial FIM goals (expression, social interaction, problem solving, memory) placed by speech language pathology which appears negatively impacted by the patient's short stay (speech pathology provided three treatment sessions). The clinician discussed continued progress and appropriateness for outpatient therapy where speech improvements can be made over a period of months. The patient was agreeable to this plan of care and will discharge from skilled speech pathology acute inpatient services at this time. PT Fpc Goals Retread Builder Goals PT Retread Builder Goals Time Frame: Aug 01, 2017 Transfers (B,C,W/C) (FIM): 7 Roll Left to Right (QC): 6 Sit to Lying (QC): 6 Lying-Sitting on Side/Bed(QC): 6 Sit to Stand (QC): 6 Chair/Yaz-te-Zeiel Xfer(QC): 6 Car Transfer (QC): 6 Does the Patient Walk: Yes Gait (FIM): 7 Gait distance (FIM): 3=150 ft Walk 10 feet (QC): 6 Walk 10ft-Uneven Surface(QC): 6 Walk 50ft with 2 Turns (QC): 6 Walk 150 ft (QC): 6 Gait Assistive Device: None Does the Pt use WC or Scooter?: No Stairs (FIM): 7 # of Steps: 12 1 Step (curb) (QC): 6 4 Steps (QC): 6 12 Steps (QC): 6 Stairs Level Of Assist: 7 Picking up an Object (QC): 6 OT Fpc Goals Fpc Goals Time Frame: Jul 26, 2017 Eating (FIM): 6 Eating (QC): 6 Oral Hygiene (QC): 6 Grooming(FIM): 6 Bathing(FIM): 5 Shower/Bathe Self (QC): 5 Upper Body Dressing(FIM): 6 Upper Body Dressing (QC): 6 Lower Body Dressing(FIM): 6 Lower Body Dressing (QC): 6 On/Off Footwear (QC): 6 Toileting(FIM): 6 Toileting Hygiene (QC): 6 Transfers (B,C,W/C) (FIM): 6 Toilet/Commode Transfer(FIM): 6 Toilet/Commode Transfer (QC): 6 Shower Transfer(FIM): 5 Comprehension(FIM): 6 (MET) Expression (FIM): 5 (NOT MET; The patient participated in speech therapy for three sessions prior to discharge. An increased period of time would be necessary to experience improvements. The patient is appropriate for outpatient therapy, where progress can be measured over a period of months.) Social Interaction(FIM): 4 (NOT MET; The patient intermittently demonstrated improvement with affect and initiation, however, it appeared directly related to the proximity of his Ativan to treatment.) Problem Solving(FIM): 5 (NOT MET; NOT MET; The patient participated in speech therapy for three sessions prior to discharge. An increased period of time would be necessary to experience improvements. The patient is appropriate for outpatient therapy, where progress can be measured over a period of months.) Memory(FIM): 4 (NOT MET; NOT MET; The patient participated in speech therapy for three sessions prior to discharge. An increased period of time would be necessary to experience improvements. The patient is appropriate for outpatient therapy, where progress can be measured over a period of months.) Additional Goals: 1-Demonstrate ADL Tasks, 2-Verbalize Understanding, 3- ImproveStrength/Faye 1=Demonstrate adherence to instructed precautions during ADL tasks. 2=Patient will verbalize/demonstrate understanding of assistive devices/ modifications for ADL. 3=Patient will improve strength/tolerance for activity to enable patient to perform ADL's. Speech Retread Builder Goals Fpc Goals 1. The patient will display improved social interaction with increased periods of facial expression and conversation initiation. Time Frame: Three Weeks Comprehension: 6 (MET) Expression: 5 (NOT MET; The patient participated in speech therapy for three sessions prior to discharge. An increased period of time would be necessary to experience improvements. The patient is appropriate for outpatient therapy, where progress can be measured over a period of months.) Social Interaction: 4 (NOT MET; The patient intermittently demonstrated improvement with affect and initiation, however, it appeared directly related to the proximity of his Ativan to treatment.) Problem Solvin (NOT MET; NOT MET; The patient participated in speech therapy for three sessions prior to discharge. An increased period of time would be necessary to experience improvements. The patient is appropriate for outpatient therapy, where progress can be measured over a period of months.) Memory: 4 (NOT MET; NOT MET; The patient participated in speech therapy for three sessions prior to discharge. An increased period of time would be necessary to experience improvements. The patient is appropriate for outpatient therapy, where progress can be measured over a period of months.) PACO PEREZ Jul 24, 2017 10:23
--- NOTE | 2017-07-24 10:51 | Physical Therapy Daily Note ---
PT Daily Note-Current Subjective Pt sitting in recliner upon arrival. Pt agrees to PT tx. Pain Numeric Pain Scale: 0-No Pain Location: No Pain Reported Mental Status Patient Orientation: Person, Confused, Place Pt demonstrates R side neglect, especially during ambulation, even after VC's given. Transfers Functional [place] Measure 0=Not Assessed/NA 4=Minimal Assistance 1=Total Assistance 5=Supervision or Setup 2=Maximal Assistance 6=Modified [place] 3=Moderate Assistance 7=Complete IndependenceIRFPAI Quality Coding Scale 6 Independent with activity with or without an assistive device 5 Patient requires set up or clean up by helper. Patient completes activity by themselves 4 Supervision or touching assist (CGA). [place] provide cues , steadying assist 3 The helper provides less than half the effort to complete the activity 2 The helper provides more than half the effort to complete the activity 1 Dependent. The helper does all the effort to complete an activity 7 Patient refused to complete or attempt activity 9 The patient did not perform the activity before the current illness or injury 88 Not attempted due to Medical conditions or safety concerns Transfers (B, C, W/C) (FIM): 5 Scootin Rollin Roll Left to Right (QC): 6 Supine to/from Sit: 6 Sit to/from Stand: 6 Sit to Lying (QC): 6 Sit to Stand (QC): 6 Chair/Hmv-ls-Pwacz Xfer(QC): 6 Bed to/from Chair: 6 Car Transfer (QC): 5 Weight Bearing Right Lower Extremity: Right Full Weight Bearing Left Lower Extremity: Left Full Weight Bearing Gait Training Does the Patient Walk?: Yes Gait (FIM): 5 Distance (FIM): 3=150 ft Distance: 225' Walk 10 feet (QC): 6 Walk 50 ft with 2 Turns(QC): 6 Walk 150 ft (QC): 5 Walking 10ft/uneven surface-QC: 6 Gait Level of Assist: 5 Gait Persons Needed: 1 Gait Assistive Device: None Pt walks w/out AD. Pt demonstrates R side neglect as he fatigues, during ambulation. Wheelchair Training Does the Pt Use a Wheelchair?: No Stair Training Stair Training: Handrails/: 1 handrail Stairs (FIM): 5 #of Steps: 12 1 Step (curb) (QC): 6 4 Steps (QC): 5 12 Steps (QC): 5 Stairs: Pattern: Reciprocal Level of Assist: 5 Balance Picking up an Object (QC): 6 Exercises NuStep Minutes: 15 NuStep Workload: 5 Treatments Pt transfers from recliner to bed, w/out AD, to perform Bed Mobility. When finished w/ Bed Mobility, Pt ambulates into Therapy Unit common area, performs Car Transfer and then ambulates throughout Therapy Unit, ending in the Therapy Gym. Pt completes Stairs, Gait over uneven surface, Picking up an object and then completes NuStep for 15m at WL5. Pt ambulates from Therapy Gym to room, to rest in bed, w/ all needs met including Bed Alarm on, call light in hand and tray by the bed. Assessment Current Status: Good Progress Pt demonstrates a lack of Social Awareness and Safety, especially when he fatigues. PT Short Term Goals Short Term Goals Time Frame: Jul 25, 2017 Transfers (B,C,W/C) (FIM): 5 Gait (FIM): 5 PT Snf Goals Infrastructure Solutions Architect Goals PT Infrastructure Solutions Architect Goals Time Frame: Aug 01, 2017 Transfers (B,C,W/C) (FIM): 7 Sit to Lying (QC): 6 Lying-Sitting on Side/Bed(QC): 6 Sit to Stand (QC): 6 Rollin Roll Left to Right (QC): 6 Chair/Lxu-xi-Udtai Xfer(QC): 6 Car Transfer (QC): 6 Does the Patient Walk: Yes Gait (FIM): 7 Gait distance (FIM): 3=150 ft Walk 10 feet (QC): 6 Walk 10ft-Uneven Surface(QC): 6 Walk 50ft with 2 Turns (QC): 6 Walk 150 ft (QC): 6 Gait Assistive Device: None Does the Pt use WC or Scooter?: No Stairs (FIM): 7 # of Steps: 12 1 Step (curb) (QC): 6 4 Steps (QC): 6 12 Steps (QC): 6 Stairs Level Of Assist: 7 Picking up an Object (QC): 6 PT Plan Problem List Problem List: Activity Tolerance, Safety, Balance, Gait Treatment/Plan Treatment Plan: Continue Plan of Care Treatment Plan: Bed Mobility, Education, Functional Activity Faye, Functional Strength, Group Therapy, Gait, Safety, Therapeutic Exercise, Transfers Treatment Duration: Aug 01, 2017 Frequency: Modified Program (IRF) Estimated Hrs Per Day: 1.5 hours per day Patient and/or Family Agrees t: Yes Safety Risks/Education Patient Education: Gait Training, Steps, Safety Issues Teaching Recipient: Patient Teaching Methods: Demonstration, Discussion Response to Teaching: Reinforcement Needed Time/GCodes Time In: 1000 Time Out: 1045 Total Billed Treatment Time: 45 Total Billed Treatment 1, GT (15m), FA (15m), EX (15m) G Codes Necessary: PHUONG Witt HOSPITAL RECEIVING CLERK Jul 24, 2017 10:51
--- NOTE | 2017-07-24 13:00 | Occupational Ther Daily Note ---
OT Current Status-Daily Note Subjective Pt in bed, agrees to treatment. Pt has no reports of pain during session. Mental Status/Objective Functional [place] Measure 0=Not Assessed/NA 4=Minimal Assistance 1=Total Assistance 5=Supervision or Setup 2=Maximal Assistance 6=Modified [place] 3=Moderate Assistance 7=Complete [place] ADL-Treatment Supine to sit with modified independence. Sit to stand with modified independence. Pt retrieved clothing from closet without assistance. Gait to restroom without AD, no LOB noted. Pt doffed clothing without assist. Transfer to walk in shower with modified independence using grab bar. Pt able to wash all areas, then steps out of shower. Pt able to dry all areas, but he did not turn shower off. Requires cues to turn water off. Don pullover shirt with modified independence. Pt attempted to don pants while standing, but had minor LOB while standing on one leg. Able to self correct. Pt was cued to sit while threading bilateral LE into pant legs to increase safety. Pt donned socks and shoes with modified independence. Grooming tasks completed with modified independence while standing at sink. Functional [place] Measure 0=Not Assessed/NA 4=Minimal Assistance 1=Total Assistance 5=Supervision or Setup 2=Maximal Assistance 6=Modified [place] 3=Moderate Assistance 7=Complete IndependenceIRFPAI Quality Coding Scale 6 Independent with activity with or without an assistive device 5 Patient requires set up or clean up by helper. Patient completes activity by themselves 4 Supervision or touching assist (CGA). [place] provide cues , steadying assist 3 The helper provides less than half the effort to complete the activity 2 The helper provides more than half the effort to complete the activity 1 Dependent. The helper does all the effort to complete an activity 7 Patient refused to complete or attempt activity 9 The patient did not perform the activity before the current illness or injury 88 Not attempted due to Medical conditions or safety concerns Eating (FIM): 6 (per nursing report) Eating (QC): 6 Grooming (FIM): 6 Oral Hygiene (QC): 6 Bathing (FIM): 5 (cues to turn water off) Shower/Bathe Self (QC): 5 Upper Body (FIM): 6 Upper Body Dressing (QC): 6 Lower Body Dressing (FIM): 5 Lower Body Dressing (QC): 5 On/Off Footwear (QC): 6 Toileting (FIM): 6 (Per nursing) Toileting Hygiene (QC): 6 Toilet/Commode Transfer (FIM): 6 Toilet Transfer (QC): 6 Shower Transfer(FIM): 6 Other Treatment Gait to therapy gym without AD. Arm bike x12 minutes to increase overall strength and activity tolerance needed for functional tasks. Pt completed activity with moderate resistance and slow pace. One rest break taken when RN brought pills. Pt completed bilateral UE exercises to increase strength needed for ADLs and transfers. Pt performed shoulder flexion, forward press, biceps curls, and wrist flex/ext x20 reps with 1# dowel isabel. Brief rest breaks between exercises. Assist required to track reps. Pt completed standing klein bag toss using bilateral UE to increase standing balance for functional task. Pt also able to machine pecan picker klein bags off the floor without LOB. Graded clothespin activity with bilateral hands to increase sales demonstrator/pinch strength. Pt returned to room, sitting in chair with needs met and chair alarm in place after session. OT Short Term Goals Short Term Goals Transfers (B,C,W/C) (FIM): 5 1=Demonstrate adherence to instructed precautions during ADL tasks. 2=Patient will verbalize/demonstrate understanding of assistive devices/ modifications for ADL. 3=Patient will improve strength/tolerance for activity to enable patient to perform ADL's. OT Penitentiary Goals Penitentiary Goals Time Frame: Jul 26, 2017 Eating (FIM): 6 (met 07/24/17) Eating (QC): 6 (6-Met) Groomin (met 07/24/17) Oral Hygiene (QC): 6 (6-MET) Bathing(FIM): 5 (met 07/24/17) Shower/Bathe Self (QC): 5 (5-MET) Upper Body Dressing(FIM): 6 (met 07/24/17) Upper Body Dressing (QC): 6 (6-MET) Lower Body Dressing(FIM): 6 (not met) Lower Body Dressing (QC): 6 (5-not met) On/Off Footwear (QC): 6 (6-MET) Toileting(FIM): 6 (met 07/24/17) Toileting Hygiene (QC): 6 (6-MET) Transfers (B,C,W/C) (FIM): 6 Toilet/Commode Transfer(FIM): 6 (met 07/24/17) Toilet/Commode Transfer (QC): 6 (6-MET) Shower Transfer(FIM): 5 (met) Comprehension(FIM): 6 (MET) Expression (FIM): 5 (NOT MET; The patient participated in speech therapy for three sessions prior to discharge. An increased period of time would be necessary to experience improvements. The patient is appropriate for outpatient therapy, where progress can be measured over a period of months.) Social Interaction(FIM): 4 (NOT MET; The patient intermittently demonstrated improvement with affect and initiation, however, it appeared directly related to the proximity of his Ativan to treatment.) Problem Solving(FIM): 5 (NOT MET; NOT MET; The patient participated in speech therapy for three sessions prior to discharge. An increased period of time would be necessary to experience improvements. The patient is appropriate for outpatient therapy, where progress can be measured over a period of months.) Memory(FIM): 4 (NOT MET; NOT MET; The patient participated in speech therapy for three sessions prior to discharge. An increased period of time would be necessary to experience improvements. The patient is appropriate for outpatient therapy, where progress can be measured over a period of months.) Additional Goals: 1-Demonstrate ADL Tasks, 2-Verbalize Understanding, 3- ImproveStrength/Faye 1=Demonstrate adherence to instructed precautions during ADL tasks. 2=Patient will verbalize/demonstrate understanding of assistive devices/ modifications for ADL. 3=Patient will improve strength/tolerance for activity to enable patient to perform ADL's. OT Education/Plan Discharge Recommendations Plan/Recommendations: Continue POC Treatment Plan/Plan of Care Patient would benefit from OT for education, treatment and training to promote independence in ADL's, mobility, safety and/or upper extremity function for ADL' s. Plan of Care: ADL Retraining, Functional Mobility, Group Exercise/Act as Ind, UE Funct Exercise/Act Treatment Duration: Jul 26, 2017 Frequency: At least 5 of 7 days/Wk (IRF) Estimated Hrs Per Day: 1.5 hours per day Agreement: Yes Rehab Potential: Guarded Time/GCodes Start Time: 08:00 Stop Time: 09:00 Total Time Billed (hr/min): 60 Billed Treatment Time 1 visit, ADLx2(25minutes), EXx2(35minutes) LORIN URIARTE OT Jul 24, 2017 13:00
--- NOTE | 2017-07-24 15:02 | Physical Therapy Daily Note ---
PT Daily Note-Current Subjective Pt sitting in recliner, upon arrival. Pt agrees to PT tx. Pain Location: No Pain Reported Mental Status Patient Orientation: Person, Confused, Place Transfers Functional [place] Measure 0=Not Assessed/NA 4=Minimal Assistance 1=Total Assistance 5=Supervision or Setup 2=Maximal Assistance 6=Modified [place] 3=Moderate Assistance 7=Complete IndependenceIRFPAI Quality Coding Scale 6 Independent with activity with or without an assistive device 5 Patient requires set up or clean up by helper. Patient completes activity by themselves 4 Supervision or touching assist (CGA). [place] provide cues , steadying assist 3 The helper provides less than half the effort to complete the activity 2 The helper provides more than half the effort to complete the activity 1 Dependent. The helper does all the effort to complete an activity 7 Patient refused to complete or attempt activity 9 The patient did not perform the activity before the current illness or injury 88 Not attempted due to Medical conditions or safety concerns Scootin Sit to/from Stand: 5 Sit to Stand (QC): 5 Pt appears tired and fatigued this afternoon. Weight Bearing Right Lower Extremity: Right Full Weight Bearing Left Lower Extremity: Left Full Weight Bearing Gait Training Does the Patient Walk?: Yes Distance (FIM): 3=150 ft Distance: 500'+ Walk 10 feet (QC): 5 Walk 50 ft with 2 Turns(QC): 5 Walk 150 ft (QC): 5 Walking 10ft/uneven surface-QC: 5 Gait Level of Assist: 5 Gait Persons Needed: 1 Gait Assistive Device: None Treatments Pt stood up from recliner and ambulates through Therapy Unit, onto Elevator and then outside to the Garden. Pt ambulated across varying surface x2, before ambulating back to elevator and then to room. Pt returned to rest in bed, w/ all needs met, including alarm on, call light in hand and tray by bed. Assessment Current Status: Good Progress Pt lacks Social Awareness and attention to Safety. PT Short Term Goals Short Term Goals Time Frame: Jul 25, 2017 Transfers (B,C,W/C) (FIM): 5 Gait (FIM): 5 PT Longterm Goals Longterm Goals PT Commercial Manager Goals Time Frame: Aug 01, 2017 Transfers (B,C,W/C) (FIM): 7 Sit to Lying (QC): 6 Lying-Sitting on Side/Bed(QC): 6 Sit to Stand (QC): 6 Rollin Roll Left to Right (QC): 6 Chair/Svf-az-Smpmy Xfer(QC): 6 Car Transfer (QC): 6 Does the Patient Walk: Yes Gait (FIM): 7 Gait distance (FIM): 3=150 ft Walk 10 feet (QC): 6 Walk 10ft-Uneven Surface(QC): 6 Walk 50ft with 2 Turns (QC): 6 Walk 150 ft (QC): 6 Gait Assistive Device: None Does the Pt use WC or Scooter?: No Stairs (FIM): 7 # of Steps: 12 1 Step (curb) (QC): 6 4 Steps (QC): 6 12 Steps (QC): 6 Stairs Level Of Assist: 7 Picking up an Object (QC): 6 PT Plan Problem List Problem List: Activity Tolerance, Safety, Balance, Gait Treatment/Plan Treatment Plan: Continue Plan of Care Treatment Plan: Bed Mobility, Education, Functional Activity Faye, Functional Strength, Group Therapy, Gait, Safety, Therapeutic Exercise, Transfers Treatment Duration: Aug 01, 2017 Frequency: Modified Program (IRF) Estimated Hrs Per Day: 1.5 hours per day Patient and/or Family Agrees t: Yes Safety Risks/Education Patient Education: Gait Training, Safety Issues Teaching Recipient: Patient Teaching Methods: Discussion Response to Teaching: Reinforcement Needed Time/GCodes Time In: 1415 Time Out: 1430 Total Billed Treatment Time: 15 Total Billed Treatment 1, GT (15m) G Codes Necessary: PHUONG Witt [employer]OB TITLES Jul 24, 2017 15:02
[2017-07-24 17:30] VITALS: BP 101/68
[2017-07-24] MEDS: PRAZOSIN 2 MG PO SCH (21:17)
[2017-07-25 05:18] VITALS: BP 90/56
[2017-07-25 08:25] VITALS: BP 106/78
[2017-07-25] MEDS: LORazepam 1 MG (ATIVAN) TAB PO SCH ×2 (08:28→12:20)
[2017-07-25] MEDS: CYANOCOBALAMIN 500 MCG TAB (VITAMIN B-12) PO SCH (08:28)
[2017-07-25] MEDS ORDERED: LORA1TAB PO (08:53)
--- NOTE | 2017-07-25 11:26 | Therapy Team Discharge Summary ---
Therapy Discharge Summary Discharge Recommendations Date of Discharge 07/25/17 Therapy D/C Recommendations: Speech Therapy Outpatient Physical Therapy This patient was seen on our unit post diagnsis of Lewy Body Dementia with reports of recent decline in functional mobility at home. Prior to this onset, he had been indep with all mobility and self care. Upon admission to our unit, he was min assist with gait and transfers and was able to to up/down steps but with assist. Treatment has consisted of functional mobility training, gait, exer/strength, balance, transfers and safety training. He has made progress; although still has some safety awareness deficits likely due to above diagnosis. He has not met all goals fully but is at his expected potential at this time. Currently, he is mod indep with transfers, SBA with gait for longer distances and sBA on stairs. Pt to discharge home with family. DC PT. Occupational Therapy Decreased Activ Tolerance, Decreased Safety Aware, Impaired Cognition, Impaired I ADL's, Impaired Self-Care Skills PT Half-Way Goals Half-Way Goals PT Junk Removal Specialist Goals Time Frame: Aug 01, 2017 Transfers (B,C,W/C) (FIM): 7 (scored a 6) Roll Left to Right (QC): 6 (met) Sit to Lying (QC): 6 (met) Lying-Sitting on Side/Bed(QC): 6 (met) Sit to Stand (QC): 6 (met) Chair/Ssw-mt-[place] Xfer(QC): 6 (met) Car Transfer (QC): 6 (scored 5) Does the Patient Walk: Yes Gait (FIM): 7 (scored 5) Gait distance (FIM): 3=150 ft Walk 10 feet (QC): 6 (met) Walk 10ft-Uneven Surface(QC): 6 (met) Walk 50ft with 2 Turns (QC): 6 (met) Walk 150 ft (QC): 6 (scored 5) Gait Assistive Device: None Does the Pt use WC or Scooter?: No Stairs (FIM): 7 (scored 5) # of Steps: 12 1 Step (curb) (QC): 6 4 Steps (QC): 6 12 Steps (QC): 6 Stairs Level Of Assist: 7 Picking up an Object (QC): 6 OT Half-Way Goals Junk Removal Specialist Goals Time Frame: Jul 26, 2017 Eating (FIM): 6 (met 07/24/17) Eating (QC): 6 (6-Met) Oral Hygiene (QC): 6 (6-MET) Grooming(FIM): 6 (met 07/24/17) Bathing(FIM): 5 (met 07/24/17) Shower/Bathe Self (QC): 5 (5-MET) Upper Body Dressing(FIM): 6 (met 07/24/17) Upper Body Dressing (QC): 6 (6-MET) Lower Body Dressing(FIM): 6 (not met) Lower Body Dressing (QC): 6 (5-not met) On/Off Footwear (QC): 6 (6-MET) Toileting(FIM): 6 (met 07/24/17) Toileting Hygiene (QC): 6 (6-MET) Transfers (B,C,W/C) (FIM): 6 Toilet/Commode Transfer(FIM): 6 (met 07/24/17) Toilet/Commode Transfer (QC): 6 (6-MET) Shower Transfer(FIM): 5 (met) Comprehension(FIM): 6 (MET) Expression (FIM): 5 (NOT MET; The patient participated in speech therapy for three sessions prior to discharge. An increased period of time would be necessary to experience improvements. The patient is appropriate for outpatient therapy, where progress can be measured over a period of months.) Social Interaction(FIM): 4 (NOT MET; The patient intermittently demonstrated improvement with affect and initiation, however, it appeared directly related to the proximity of his Ativan to treatment.) Problem Solving(FIM): 5 (NOT MET; NOT MET; The patient participated in speech therapy for three sessions prior to discharge. An increased period of time would be necessary to experience improvements. The patient is appropriate for outpatient therapy, where progress can be measured over a period of months.) Memory(FIM): 4 (NOT MET; NOT MET; The patient participated in speech therapy for three sessions prior to discharge. An increased period of time would be necessary to experience improvements. The patient is appropriate for outpatient therapy, where progress can be measured over a period of months.) Additional Goals: 1-Demonstrate ADL Tasks, 2-Verbalize Understanding, 3- ImproveStrength/Faye 1=Demonstrate adherence to instructed precautions during ADL tasks. 2=Patient will verbalize/demonstrate understanding of assistive devices/ modifications for ADL. 3=Patient will improve strength/tolerance for activity to enable patient to perform ADL's. Speech Half-Way Goals Junk Removal Specialist Goals 1. The patient will display improved social interaction with increased periods of facial expression and conversation initiation. Time Frame: Three Weeks Comprehension: 6 (MET) Expression: 5 (NOT MET; The patient participated in speech therapy for three sessions prior to discharge. An increased period of time would be necessary to experience improvements. The patient is appropriate for outpatient therapy, where progress can be measured over a period of months.) Social Interaction: 4 (NOT MET; The patient intermittently demonstrated improvement with affect and initiation, however, it appeared directly related to the proximity of his Ativan to treatment.) Problem Solvin (NOT MET; NOT MET; The patient participated in speech therapy for three sessions prior to discharge. An increased period of time would be necessary to experience improvements. The patient is appropriate for outpatient therapy, where progress can be measured over a period of months.) Memory: 4 (NOT MET; NOT MET; The patient participated in speech therapy for three sessions prior to discharge. An increased period of time would be necessary to experience improvements. The patient is appropriate for outpatient therapy, where progress can be measured over a period of months.) RICHARD BARBOUR PT Jul 25, 2017 11:26
--- NOTE | 2017-07-25 11:52 | Therapy Team Discharge Summary ---
Therapy Discharge Summary Discharge Recommendations Date of Discharge Therapy D/C Recommendations: Speech Therapy Outpatient Occupational Therapy Pt admitted to ARU following diagnosis of Lewy Body Dementia. On admission pt required SBA for grooming, bathing, and dressing. Skilled OT intervention focused on ADL training, transfers, and strengthening. Pt made progress with therapy and by discharge is completing eating, grooming, UE dressing, toileting and transfers with modified independence. Pt requires cues for during bathing and SBA for safety during LE dressing. Pt met all OT LTG except LE dressing as pt requires cues for safety. Pt discharging home this date. D/c ARU OT. Decreased Activ Tolerance, Decreased Safety Aware, Impaired Cognition, Impaired I ADL's, Impaired Self-Care Skills PT Chcf Goals Chcf Goals PT Shale Miner Goals Time Frame: Aug 01, 2017 Transfers (B,C,W/C) (FIM): 7 (scored a 6) Roll Left to Right (QC): 6 (met) Sit to Lying (QC): 6 (met) Lying-Sitting on Side/Bed(QC): 6 (met) Sit to Stand (QC): 6 (met) Chair/Nee-dx-Mibcx Xfer(QC): 6 (met) Car Transfer (QC): 6 (scored 5) Does the Patient Walk: Yes Gait (FIM): 7 (scored 5) Gait distance (FIM): 3=150 ft Walk 10 feet (QC): 6 (met) Walk 10ft-Uneven Surface(QC): 6 (met) Walk 50ft with 2 Turns (QC): 6 (met) Walk 150 ft (QC): 6 (scored 5) Gait Assistive Device: None Does the Pt use WC or Scooter?: No Stairs (FIM): 7 (scored 5) # of Steps: 12 1 Step (curb) (QC): 6 4 Steps (QC): 6 12 Steps (QC): 6 Stairs Level Of Assist: 7 Picking up an Object (QC): 6 OT Shale Miner Goals Shale Miner Goals Time Frame: Jul 26, 2017 Eating (FIM): 6 (met 07/24/17) Eating (QC): 6 (6-Met) Oral Hygiene (QC): 6 (6-MET) Grooming(FIM): 6 (met 07/24/17) Bathing(FIM): 5 (met 4/17/18) Shower/Bathe Self (QC): 5 (5-MET) Upper Body Dressing(FIM): 6 (met 07/24/17) Upper Body Dressing (QC): 6 (6-MET) Lower Body Dressing(FIM): 6 (not met) Lower Body Dressing (QC): 6 (5-not met) On/Off Footwear (QC): 6 (6-MET) Toileting(FIM): 6 (met 07/24/17) Toileting Hygiene (QC): 6 (6-MET) Transfers (B,C,W/C) (FIM): 6 Toilet/Commode Transfer(FIM): 6 (met 07/24/17) Toilet/Commode Transfer (QC): 6 (6-MET) Shower Transfer(FIM): 5 (met) Comprehension(FIM): 6 (MET) Expression (FIM): 5 (NOT MET; The patient participated in speech therapy for three sessions prior to discharge. An increased period of time would be necessary to experience improvements. The patient is appropriate for outpatient therapy, where progress can be measured over a period of months.) Social Interaction(FIM): 4 (NOT MET; The patient intermittently demonstrated improvement with affect and initiation, however, it appeared directly related to the proximity of his Ativan to treatment.) Problem Solving(FIM): 5 (NOT MET; NOT MET; The patient participated in speech therapy for three sessions prior to discharge. An increased period of time would be necessary to experience improvements. The patient is appropriate for outpatient therapy, where progress can be measured over a period of months.) Memory(FIM): 4 (NOT MET; NOT MET; The patient participated in speech therapy for three sessions prior to discharge. An increased period of time would be necessary to experience improvements. The patient is appropriate for outpatient therapy, where progress can be measured over a period of months.) Additional Goals: 1-Demonstrate ADL Tasks, 2-Verbalize Understanding, 3- ImproveStrength/Faye 1=Demonstrate adherence to instructed precautions during ADL tasks. 2=Patient will verbalize/demonstrate understanding of assistive devices/ modifications for ADL. 3=Patient will improve strength/tolerance for activity to enable patient to perform ADL's. Speech Chcf Goals Shale Miner Goals 1. The patient will display improved social interaction with increased periods of facial expression and conversation initiation. Time Frame: Three Weeks Comprehension: 6 (MET) Expression: 5 (NOT MET; The patient participated in speech therapy for three sessions prior to discharge. An increased period of time would be necessary to experience improvements. The patient is appropriate for outpatient therapy, where progress can be measured over a period of months.) Social Interaction: 4 (NOT MET; The patient intermittently demonstrated improvement with affect and initiation, however, it appeared directly related to the proximity of his Ativan to treatment.) Problem Solvin (NOT MET; NOT MET; The patient participated in speech therapy for three sessions prior to discharge. An increased period of time would be necessary to experience improvements. The patient is appropriate for outpatient therapy, where progress can be measured over a period of months.) Memory: 4 (NOT MET; NOT MET; The patient participated in speech therapy for three sessions prior to discharge. An increased period of time would be necessary to experience improvements. The patient is appropriate for outpatient therapy, where progress can be measured over a period of months.) LORIN URIARTE OT Jul 25, 2017 11:52
[2017-07-25 12:30] VITALS: BP 106/78
--- NOTE | 2017-08-02 08:50 | DISCHARGE SUMMARY ---
DATE OF SERVICE: HISTORY OF PRESENT ILLNESS: The patient is a 62-year-old male transferred from after hospitalization for a rapidly progressive dementia. The patient was diagnosed with Lewy body dementia and presented in a catatonic state at . He was seen by neurology and psych, and showed some improvement after he was started on medications. The patient was then transferred to inpatient rehabilitation unit at [facility] so as to be closer to home as he lives in [place], [place]. PCP is [facility]. PAST MEDICAL HISTORY: Hypertension, anxiety. MEDICAL COURSE: The patient was admitted to Dr. Ramirez service in his absence and followed by Dr. Herrera, [facility] in his absence. He was afebrile during his stay. His pulse was 67, respirations 20, blood pressure 106/78, O2 sat 97% on room air. He was continued on lorazepam and citalopram, and Minipress. REHABILITATION COURSE: He was seen by PT, OT and speech. Speech notes upon admission, the patient displayed a mild to moderate cognitive deficit in the area of memory, attention, visual-spatial skills and executive functioning. The patient did not make significant progress due to his short stay and was recommended that he will have followup outpatient speech therapy regarding this. PT notes upon admission, the patient was min assist for gait and transfers, and was able to go up and down steps with assistance. He has made progress, although still has some safety awareness deficits likely due to his dementia. Upon discharge, he is modified independent with transfers, standby assist with gait, standby assist with stairs. OT notes upon admission, the patient requires standby assist for grooming, bathing, dressing. By discharge, he was completing eating, grooming, upper body dressing, toileting and transfers with modified independence. DISCHARGE INSTRUCTIONS: The patient is discharged to home with his spouse. Continue current diet. Follow up with [facility]. DISCHARGE MEDICATIONS: Lorazepam 2 mg p.o. t.i.d., citalopram 10 mg p.o. at bedtime, Minipress 2 mg p.o. at bedtime. DISCHARGE DIAGNOSES: 1. Rehabilitation. Lewy body dementia with behavioral disturbances. 2. Hypertension, controlled with medication. 3. Anxiety, controlled with medication. CONDITION AT DISCHARGE: Improved and stable. PROGNOSIS: Rehab prognosis appears fair for some continued improvement; however due to his cognitive deficits, he will continue to require supervision and assistance with higher order ADLs from his spouse.This Discharge Summary was done as a scribe as this Physician was away during this patients stay on the IRU and other Physyicans were covering during that time. Job ID: [id number] DocumentID: [id number] Dictated Date: 08/01/2017 11:02:42 Milking Machine Mechanic Date: 08/02/2017 07:47:22 Dictated By: TALIA RAMIREZ MD [facility]
== END 2017-07-25 12:30 | disposition home or self-care (01) | DRG 57 ==
PROVIDERS: ADMIT Physical Medicine & Rehabilitation; ATTEND Physical Medicine & Rehabilitation
DX: G31.83 Neurocognitive disorder with Lewy bodies (principal); F02.81 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 classified elsewhere, unspecified severity, with behavioral disturbance; I10 Essential (primary) hypertension; F41.9 Anxiety disorder, unspecified

== ENCOUNTER 2018-10-26 17:01 | Emergency (ER) | payer SELFPAY ==
[~2018-10-26] VITALS: Ht 172.7 cm; Wt 77.1 kg
[~2018-10-26 17:01] MED LIST: CITA10TA7 PO; LORA1TAB PO; PRAZ2CAP PO
--- NOTE | 2018-10-26 17:05 | NUR ---
pt here with and daughter. pt alert gcs 14 neg 1 for confusion. pt know his last name but got yr wrong and thought current yr was 1908. relates pt was just d/cd from yesterday and was supposed to get a ect tx there but ended up in " [facility]" and did not get a ect tx. also said pt had a stroke , says recent medication changes as well. since d/c relates pt has "laughing for no reasonand cursing". pt has uncontrollable laughing in er. no acute sighns of dyspnea noted. lungs cta bilaterally. abd w/o face grimace with palpation. says pt has h/o " catatonia and depression" denies pt suicidal. says pt has no h/o diabetes. done carey pt at 1713.
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
--- NOTE | 2018-10-26 17:45 | NUR ---
relates the laughing and cursing started today 1100 and also says pt is " grabbing himself" as in penile area.
--- NOTE | 2018-10-26 18:55 | NUR ---
i filled out and sighned consent for records from [facility]. someone else faxed them to [facility]. pt also becoming more physical like raising a tight fist and kicking.
[2018-10-26] MEDS ORDERED: LORazepam INJ 2 MG/ML (ATIVAN) VIAL IVP ONE ×3 (19:00→20:00)
[2018-10-26 19:09] LABS: BASOPHILS # (AUTO) 0.1 10^3/uL (0.0-0.1); BASOPHILS % (AUTO) 1 % (0-10); EOSINOPHILS # (AUTO) 0.1 10^3/uL (0.0-0.3); EOSINOPHILS % (AUTO) 1 % (0-10); HEMATOCRIT 44 % (40-54); LYMPHOCYTES # (AUTO) 3.1 X 10^3 (1.0-4.0); LYMPHOCYTES % (AUTO) 36 % (12-44); MEAN CORPUSCULAR HEMOGLOBIN 33 PG (25-34); MEAN CORPUSCULAR HGB CONC 34 G/DL (32-36); MEAN CORPUSCULAR VOLUME 99 FL (80-99); MEAN PLATELET VOLUME 10.7 FL (7.4-10.4); MONOCYTES # (AUTO) 0.9 X 10^3 (0.0-1.0); MONOCYTES % (AUTO) 10 % (0-12); NEUTROPHILS # (AUTO) 4.6 X 10^3 (1.8-7.8); NEUTROPHILS % (AUTO) 53 % (42-75); PLATELET COUNT 211 10^3/uL (130-400); RED CELL DISTRIBUTION WIDTH 13.1 % (10.0-14.5); WHITE BLOOD COUNT 8.7 10^3/uL (4.3-11.0)
--- NOTE | 2018-10-26 19:21 | NUR ---
mental health staff in room talking with pt/ family
[2018-10-26 19:29] LABS: ALANINE AMINOTRANSFERASE 19 U/L (0-55); ALBUMIN 4.1 GM/DL (3.2-4.5); ALKALINE PHOSPHATASE 65 U/L (40-136); BILIRUBIN,TOTAL 0.6 MG/DL (0.1-1.0); BUN/CREATININE RATIO 14; CALCIUM 9.4 MG/DL (8.5-10.1); CARBON DIOXIDE 24 MMOL/L (21-32); CHLORIDE 106 MMOL/L (98-107); CREATININE SERUM 0.85 MG/DL (0.60-1.30); GFR ESTIMATED > 60; GLUCOSE 72 MG/DL (70-105); MAGNESIUM 2.2 MG/DL (1.8-2.4); POTASSIUM 4.4 MMOL/L (3.6-5.0); SALICYLATE < 5.0 MG/DL (5.0-20.0); SODIUM 142 MMOL/L (135-145); TOTAL PROTEIN 6.9 GM/DL (6.4-8.2)
[2018-10-26 19:41] LABS: ACETAMINOPHEN < 10 UG/ML (10-30)
[2018-10-26 19:49] LABS: TSH (THYROID ANALYZER) 1.63 UIU/ML (0.35-4.94)
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
--- NOTE | 2018-10-26 21:01 | NUR ---
pt awake but seems calm w/o being approached. family in room. pt with no acute sighns of dyspnea noted.
--- NOTE | 2018-10-26 21:25 | NUR ---
i went to ct with pt and program director substance abuse. pt was all calm and cooperative for ct. now back in room bladder scanner by me shows [address] time [address] notified . pt was all calm and was able to ua in urinal 900 ml w/o problems with me and help of dr. melendrez to lab by me.
[2018-10-26 21:40] LABS: BILIRUBIN,URINE NEGATIVE (NEGATIVE); CLARITY,URINE CLEAR; COLOR,URINE YELLOW; GLUCOSE, URINE (UA) NEGATIVE (NEGATIVE); KETONES,URINE NEGATIVE (NEGATIVE); LEUKOCYTE ESTERASE ,URINE NEGATIVE (NEGATIVE); NITRITE,URINE NEGATIVE (NEGATIVE); PH,URINE 8 (5-9); PROTEIN,URINE NEGATIVE (NEGATIVE); UROBILINOGEN,URINE NORMAL (NORMAL)
[2018-10-26 21:50] LABS: AMPHETAMINE SCREEN, URINE NEGATIVE (NEGATIVE); BACTERIA,URINE TRACE /HPF; BARBITURATE SCREEN URINE NEGATIVE (NEGATIVE); BENZODIAZEPINES SCREEN URINE POSITIVE (NEGATIVE); CANNABINOID SCREEN, URINE NEGATIVE (NEGATIVE); COCAINE SCREEN URINE NEGATIVE (NEGATIVE); METHADONE STAT NEGATIVE (NEGATIVE); METHAMPHETAMINE SCREEN URINE S NEGATIVE (NEGATIVE); OPIATE SCREEN URINE NEGATIVE (NEGATIVE); OXYCODONE STAT NEGATIVE (NEGATIVE); PROPOXYPHENE STAT NEGATIVE (NEGATIVE); SQUAMOUS EPITHELIAL CELL,UR RARE /HPF; TRICYCLIC ANTIDEPRESSANTS SCRE NEGATIVE (NEGATIVE)
--- NOTE | 2018-10-26 21:50 | Diagnostic Imaging Report ---
PROCEDURE: CT head without contrast. TECHNIQUE: Multiple contiguous axial images were obtained through the brain without the use of intravenous contrast. Auto Exposure Controls were utilized during the CT exam to meet ALARA standards for radiation dose reduction. INDICATION: Altered mental status. COMPARISON: None available. FINDINGS: BRAIN: No parenchymal hemorrhage, midline shift or mass effect. Walker-white matter differentiation is intact. No acute infarct. Focal hypodensity in the left henderson radiata likely reflects old lacunar infarct. No significant white matter disease. Ventricles, sulci and basilar cisterns are normal. EXTRA-AXIAL SPACES: No subdural or epidural collections. ORBITS AND PARANASAL SINUSES: Visualized orbits and globes are intact. Visualized paranasal sinuses and mastoid air cells are clear. CALVARIUM AND SOFT TISSUES: The calvarium is intact. No fractures or suspicious bony lesions. The extracranial soft tissues are unremarkable. IMPRESSION: No acute intracranial pathology. Focal hypodensity in the left henderson radiata likely reflects old lacunar infarct. Dictated by: Dictated on workstation # [id number]
--- NOTE | 2018-10-26 23:00 | NUR ---
PT SLEEPING/ SEDATED. BEEN CALM AND NONVIOLENT SINCE THE CT. . FAMILY X 2 IN THE ROOM. 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 RESP SHALLOW NONLABORED. NO OTHER ACUTE SIGHNS OF DYSPNEA NOTED. BP MACHINE IS 109/69 AUSC HR 60 REG AUSC RESP 16. RECHECK TEMP 98.1 P OX R/A IS 95.
--- NOTE | 2018-10-26 23:21 | NUR ---
report to juliet fisher
[2018-10-27 00:05] VITALS: BP 117/78
== END 2018-10-27 00:17 | disposition home or self-care (01) ==
LOC: EDUNIT# 17:01 → ER 17:02
DX: F32.3 Major depressive disorder, single episode, severe with psychotic features (principal); R45.1 Restlessness and agitation; I10 Essential (primary) hypertension; F41.9 Anxiety disorder, unspecified; F20.2 Catatonic schizophrenia
CPT/HCPCS: 36415; 70450; 80053; 80306; 80320; 80329; 81000; 83735; 84443; 85025; 96374

== ENCOUNTER 2019-05-24 08:25 | Emergency (ER) | payer OTHER ==
[~2019-05-24] VITALS: Ht 172 cm; Wt 81.8 kg
[2019-05-24] MEDS ORDERED: NS IV 1000 ML 1,000 ML ONE (09:01)
[2019-05-24] MEDS ORDERED: LORazepam INJ 2 MG/ML (ATIVAN) VIAL ONE (09:03)
[2019-05-24] MEDS ORDERED: NS IV 1000 ML 1,000 ML IV SCH (09:04)
[2019-05-24 09:11] LABS: BASOPHILS % (AUTO) 0 % (0-10); EOSINOPHILS % (AUTO) 0 % (0-10); HEMATOCRIT 49 % (40-54); HEMOGLOBIN 15.8 G/DL (13.3-17.7); LYMPHOCYTES % (AUTO) 15 % (12-44); MEAN CORPUSCULAR HEMOGLOBIN 33 PG (25-34); MEAN CORPUSCULAR HGB CONC 33 G/DL (32-36); MEAN CORPUSCULAR VOLUME 101 FL (80-99); MEAN PLATELET VOLUME 10.3 FL (7.4-10.4); MONOCYTES # (AUTO) 1.2 X 10^3 (0.0-1.0); MONOCYTES % (AUTO) 9 % (0-12); NEUTROPHILS # (AUTO) 10.1 X 10^3 (1.8-7.8); NEUTROPHILS % (AUTO) 76 % (42-75); PLATELET COUNT 300 10^3/uL (130-400); RED CELL DISTRIBUTION WIDTH 13.4 % (10.0-14.5); WHITE BLOOD COUNT 13.4 10^3/uL (4.3-11.0)
[2019-05-24 09:11] LABS: CLARITY,URINE CLEAR; COLOR,URINE YELLOW; GLUCOSE, URINE (UA) NEGATIVE (NEGATIVE); KETONES,URINE 2+ (NEGATIVE); LEUKOCYTE ESTERASE ,URINE NEGATIVE (NEGATIVE); NITRITE,URINE NEGATIVE (NEGATIVE); PH,URINE 5.5 (5-9); PROTEIN,URINE TRACE (NEGATIVE)
[2019-05-24] MEDS ORDERED: LORazepam INJ 2 MG/ML (ATIVAN) VIAL IVP ONE ×3 (09:15→20:45)
--- NOTE | 2019-05-24 09:25 | ED Psychosocial ---
General Chief Complaint: General Problems/Pain Stated Complaint: UNABLE TO SWALLOW Nursing Triage Note: PT PRESENTS TO ED ACCOMPANIED BY FAMILY IN WC. PT FAMILY REPROTS PT HAS BEEN UNABLE TO EAT/DRINK AND HAVING DIFFICULTY SWALLOWING X 3-4 DAYS. [facility] REPOR[facility] PT WAS DISCHARGED FROM [facility] ON 05/19/19 AND HAS BEEN KATATONIC SINCE AND THEY HAVE BEEN UNABLE TO GIVE HIM ANYTHING BY MOUTH SINCE. PT RECIEVED A TOTAL OF 3 MG OF ATIVAN IM YESTERDAY. Source: family, [facility] records, caregiver Exam Limitations: clinical condition (NABIL BUTTERFIELD MD) History of Present Illness Date Seen by Provider: May 24, 2019 Time Seen by Provider: 08:54 Initial Comments This 63-year-old man presents to the emergency room by private vehicle with his family. They report he has had catatonic-like symptoms for the past 4-5 days. During that time he has had very little to eat and drink. They are concerned about his ability to hydrate and stay nourished. He was admitted at [facility] in October with similar symptoms and eventually discharged home. He functioned fairly well at home for a while. He then was recently admitted to the [facility] on [place] because of hallucinations and symptoms of psychosis. He was discharged from [place] to the [facility]. He has been there since May 19. 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 Family reports he received a total of Ativan 3 mg IM and a B-12 injection yesterday. He did have a positive response to this and actually got up out of the chair and demanded water. However, this morning he has rigidity and will not respond. Family notes that he recently was started on buspirone and had a Prolixin injections while at [place]. They wonder if these medications triggered his catatonia. 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 Family has been concerned that he has had poor oral intake the past few days. He did drink yesterday but has had decreased responsiveness much of the past 4 days and has therefore not been drinking. (NABIL BUTTERFIELD MD) Allergies and Home Medications Allergies Coded Allergies: No Known Allergies (Verified Allergy, Unknown, 07/18/17) Home Medications Citalopram Hydrobromide 10 Mg Tablet, 10 MG PO HS, (Reported) Lorazepam 1 Mg Tablet, 2 MG PO TID Prescribed by: FAUSTO GUEVARA on 07/25/17 0853 Prazosin HCl 2 Mg Capsule, 2 MG PO HS, (Reported) Patient Home Medication List Home Medication List Reviewed: Yes (NABIL BUTTERFIELD MD) Review of Systems Constitutional: no symptoms reported EENTM: no symptoms reported Respiratory: no symptoms reported Cardiovascular: no symptoms reported Gastrointestinal: see HPI Genitourinary: no symptoms reported Musculoskeletal: see HPI Skin: no symptoms reported Psychiatric/Neurological: See HPI (NABIL BUTTERFIELD MD) Past [place]et-Hexgvb-Lrsfcg Hx Past Med/Social Hx: Reviewed Nursing Past Med/Soc Hx (NABIL BUTTERFIELD MD) Patient Social History Alcohol Use: Denies Use Recreational Drug Use: No Smoking Status: Never a Smoker Recent Foreign Travel: No Contact w/Someone Who Travel: No Recent Infectious Disease Expo: No Recent Hopitalizations: Yes Physical Abuse: No Sexual Abuse: No Mistreated: No Fear: No (NABIL BUTTERFIELD MD) Seasonal Allergies Seasonal Allergies: No (NABIL BUTTERFIELD MD) Past Medical History Surgeries: No Respiratory: No Cardiac: Yes Hypertension Neurological: Yes (Lewy body dementia ruled out, TRANSIENT CEREBRAL ISCHEMIC ATTACKS) Genitourinary: Yes (hx of urinary retention ) Gastrointestinal: No Musculoskeletal: No Endocrine: No HEENT: No Cancer: No Psychosocial: Yes (hx of hallucinations, CATONIC SCHIZOPHRENIA) Anxiety, Personality Disorder, Schizophrenia, Depression Integumentary: No (NABIL BUTTERFIELD MD) Family Medical History Reviewed Nursing Family Hx (NABIL BUTTERFIELD MD) FH: dementia G8 SISTER FH: neurologic disorder G8 SISTER Physical Exam Vital Signs - First Documented 05/24/19 09:05 Temp 36.2 Pulse 99 Resp 20 B/P (MAP) 131/93 (106) Pulse Ox 93 O2 Delivery Nasal Cannula O2 Flow Rate 3.00 (CHAPIN BRADY DO) Capillary Refill : Less Than 3 Seconds (NABIL BUTTERFIELD MD) Height, Weight, BMI Height: 5'8.00" Weight: 170lbs. 1.0oz. 77.537770lb; 27.00 BMI Method:Stated General Appearance: WD/WN, no apparent distress HEENT: PERRL/EOMI, normal ENT inspection Neck: normal inspection Respiratory: lungs clear, normal breath sounds, no respiratory distress, no accessory muscle use Cardiovascular: regular rate, rhythm, no edema, no murmur Gastrointestinal: normal bowel sounds, non tender, soft Extremities: normal inspection, no pedal edema Neurologic/Psychiatric: other (patient minimally responsive to any kind of sti mulus. He occasionally has some vocalizations. Musculature is mildly rigid. Muscle tension is observed in the neck muscles and extremities. He is protecting his airway. He is observed swallowing and he does cough appropriately.) Appearance/Memory: appropriate appearance Skin: normal color, warm/dry (NABIL BUTTERFIELD MD) Progress/Results/Core Measures Results/Orders Lab Results Laboratory Tests Test 05/24/19 08:58 05/24/19 09:03 Range/Units White Blood Count 13.4 H 4.3-11.0 10^3/uL Red Blood Count 4.81 4.35-5.85 10^6/uL Hemoglobin 15.8 13.3-17.7 G/DL Hematocrit 49 40-54 % Mean Corpuscular Volume 101 H 80-99 FL Mean Corpuscular Hemoglobin 33 25-34 PG Mean Corpuscular Hemoglobin Concent 33 32-36 G/DL Red Cell Distribution Width 13.4 10.0-14.5 % Platelet Count 300 130-400 10^3/uL Mean Platelet Volume 10.3 7.4-10.4 FL Neutrophils (%) (Auto) 76 H 42-75 % Lymphocytes (%) (Auto) 15 12-44 % Monocytes (%) (Auto) 9 0-12 % Eosinophils (%) (Auto) 0 0-10 % Basophils (%) (Auto) 0 0-10 % Neutrophils # (Auto) 10.1 H 1.8-7.8 X 10^3 Lymphocytes # (Auto) 2.0 1.0-4.0 X 10^3 Monocytes # (Auto) 1.2 H 0.0-1.0 X 10^3 Eosinophils # (Auto) 0.0 0.0-0.3 10^3/uL Basophils # (Auto) 0.0 0.0-0.1 10^3/uL Sodium Level 146 H 135-145 MMOL/L Potassium Level 4.4 3.6-5.0 MMOL/L Chloride Level 106 98-107 MMOL/L Carbon Dioxide Level 23 21-32 MMOL/L Anion Gap 17 H 5-14 MMOL/L Blood Urea Nitrogen 29 H 7-18 MG/DL Creatinine 1.09 0.60-1.30 MG/DL Estimat Glomerular Filtration Rate > 60 BUN/Creatinine Ratio 27 Glucose Level 93 70-105 MG/DL Calcium Level 9.8 8.5-10.1 MG/DL Corrected Calcium 9.7 8.5-10.1 MG/DL Magnesium Level 2.5 H 1.6-2.4 MG/DL Total Bilirubin 0.6 0.1-1.0 MG/DL Aspartate Amino Transf (AST/SGOT) 24 5-34 U/L Alanine Aminotransferase (ALT/SGPT) 15 0-55 U/L Alkaline Phosphatase 63 40-136 U/L Total Creatine Kinase 128 30-200 U/L Total Protein 8.2 6.4-8.2 GM/DL Albumin 4.1 3.2-4.5 GM/DL TSH [place] Testing 0.74 0.35-4.94 UIU/ML Urine Color YELLOW Urine Clarity CLEAR Urine pH 5.5 5-9 Urine Specific [place] >=1.030 1.016-1.022 Urine Protein TRACE H NEGATIVE Urine Glucose (UA) NEGATIVE NEGATIVE Urine Ketones 2+ H NEGATIVE Urine Nitrite NEGATIVE NEGATIVE Urine Bilirubin 2+ H NEGATIVE Urine Urobilinogen 1.0 < = 1.0 MG/DL Urine Leukocyte Esterase NEGATIVE NEGATIVE Urine RBC (Auto) TRACE-L NEGATIVE Urine RBC 2-5 H /HPF Urine WBC NONE /HPF Urine Squamous Epithelial Cells NONE /HPF Urine Crystals NONE /LPF Urine Bacteria NEGATIVE /HPF Urine Casts NONE /LPF Urine Mucus NEGATIVE /LPF Urine Culture Indicated NO Urine Opiates Screen NEGATIVE NEGATIVE Urine Oxycodone Screen NEGATIVE NEGATIVE Urine Methadone Screen NEGATIVE NEGATIVE Urine Propoxyphene Screen NEGATIVE NEGATIVE Urine Barbiturates Screen NEGATIVE NEGATIVE Ur Tricyclic Antidepressants Screen NEGATIVE NEGATIVE Urine Phencyclidine Screen NEGATIVE NEGATIVE Urine Amphetamines Screen NEGATIVE NEGATIVE Urine Methamphetamines Screen NEGATIVE NEGATIVE Urine Benzodiazepines Screen POSITIVE H NEGATIVE Urine Cocaine Screen NEGATIVE NEGATIVE Urine Cannabinoids Screen NEGATIVE NEGATIVE (CHAPIN BRADY DO) Micro Results Microbiology 2/15/20 Influenza Types A,B Antigen (BRODY) - Final, Complete (CHAPIN BRADY DO) My Orders Orders - CHAPIN BRADY DO Ceftriaxone For Iv Use (Rocephin For I (05/24/19 22:30) Azithromycin Injection (Zithromax Inject (05/24/19 22:30) D5 1/2 Ns W/Kcl 20 Meq/L (Dextrose 5%/0. (05/24/19 22:30) Albuterol/Ipra Inhalation Soln (Duoneb I (05/24/19 22:30) Rt Request For Service (05/24/19 22:18) Svn Small Volume Nebulizer (05/24/19 22:18) Sputum Culture (05/24/19 22:44) Diphenhydramine Injection (Benadryl Inje (05/24/19 23:00) Scopolamine Patch (Transderm-Scop Patch) (05/24/19 23:00) (CHAPIN BRADY DO) Medications Given in ED Current Medications Medications Dose Ordered Sig/Cindi Route Start Time Stop Time Status Last Admin Dose Admin Albuterol/ Ipratropium 3 ml ONCE ONCE INH 05/24/19 22:30 05/24/19 22:31 DC 05/24/19 22:44 3 ML Azithromycin 500 mg/Sodium Chloride 250 ml @ 250 mls/hr ONCE ONCE IV 05/24/19 22:30 05/24/19 23:29 DC 05/24/19 23:12 250 MLS/HR Ceftriaxone Sodium 1000 mg/ Sterile Water 10 ml @ 200 mls/hr ONCE ONCE IV 05/24/19 22:30 05/24/19 22:32 DC 05/24/19 23:10 200 MLS/HR Diphenhydramine HCl 50 mg ONCE ONCE IVP 05/24/19 23:00 05/24/19 23:04 DC 05/24/19 23:16 50 MG Lorazepam 1 mg ONCE ONCE IVP 05/24/19 20:45 05/24/19 20:46 DC 05/24/19 20:55 1 MG Scopolamine 1.5 mg ONCE ONCE TD 05/24/19 23:00 05/24/19 23:04 DC 05/24/19 23:16 1.5 MG (CHAPIN BRADY DO) Vital Signs/I&O 05/24/19 05/24/19 22:35 22:54 Temp 37.4 Pulse 93 Resp 16 B/P (MAP) 116/77 (90) Pulse Ox 98 100 O2 Delivery Nasal Cannula O2 Flow Rate 3.00 05/25/19 00:00 Intake Total 10 ml Balance 10 ml (CHAPIN BRADY DO) Blood Pressure Mean: 106 Progress Progress Note #1: Time: 14:18 Progress Note Workup revealed no major abnormalities. Patient received a total of 2 mg of IV Ativan as family believes Ativan has worked well in the past to improve his catatonia. He did have some modest improvement briefly. He spoke to his for a few minutes but then reverted back to his prior state. He sat up also when he spoke to his . He does moan and groan at times. He is still observed to be swallowing his saliva and having appropriate cough. He does have mild hypoxia when on room air but maintains his saturations in the upper 90s on 2 L by nasal cannula. This patient's condition should be evaluated by psychiatry and neurology. I discussed the need for transfer with his family. They do not want to transfer for to again because their insurance does not cover . They request transfer to [facility] in [place]. I discussed the case with Dr. Turpin on the hospitalist service. He would like to try to transfer to the psychiatric unit. A chart review has been requested and negin steinberg will be sent to the [facility] transfer administrative nursing supervisor. Patient has received a liter of IV fluid. Progress Note #2: Time: 16:20 Progress Note [facility] stating he did not feel he was a good fit for their facility. Patient continues in a minimally responsive state. Vitals are maintained. I contacted [facility] and they have no psychiatric bed capacity. Patient's other daughter arrives to the [facility] and reports his prior episode of catatonia was felt to be related to Haldol. She is concerned that his current use of Prolixin (another antipsychotic) may also be triggering this episode. Progress Note #3: Time: 18:11 Progress Note Patient's condition is unchanged. Transfer was declined by [facility] in [place]. They do not have appropriate services for this patient at this time. We're now trying other facilities. Progress Note #4: Time: 20:51 Progress Note I have contacted [facility] in [place] and discussed the case with neurologist on-call doctor Shekhar. He feels this patient's condition is fairly complex and he needs a tertiary care center with both neurology and psychiatric services. He is strongly recommending . Family was reluctant to transfer to because insurance coverage at is uncertain. However, ultimately they decided to pursue transfer to because of its robust capacity to manage the patient's problems. I discussed the case with the transfer team at . They requested admission to the psychiatric facility rather than a medical facility. Unfortunately, the psychiatric facility will not have any openings until discharge is tomorrow. Patient has received 2 L of IV fluids. Care is being transitioned to Dr. Brady at this time. Influenza swab was collected. We are trying another milligram of Ativan at this time as patient is having more rigidity. Progress Note #5: Time: 06:35 Progress Note I have assumed care from Dr. Brady and received report. Multiple attempts at finding placement in a psychiatric facility were attempted last night without success. Patient required some interventions last night including oral suctioning. A scopolamine patch was placed to help decrease secretions. Patient has remained stable with these measures. He has not been alert enough to eat or drink. He is being maintained on IV fluids. Dr. Brady was concerned about his elevated WBC yesterday and noted he was supposed to start on azithromycin when discharged from [place]. This did not happen because he was not swallowing well enough to take pills at the [facility]. She therefore initiated Rocephin and azithromycin. The plan for this morning is to repeat labs and a chest x-ray. A Prasad catheter was placed to monitor urine output. We will trial Ativan again this morning. I will start with 1 mg. There is no response after about 10 minutes we will add the second milligram. Family and Dr. Brady seem to think he had a modest response to Benadryl and Ativan last night although he did not wake or talk, he was less rigid after receiving the medications. On reexamination this morning lungs are clear, patient does not respond to voice, rigidity of the extremities and neck has returned. I will assess labs and a repeat chest x-ray and then try to find placement to a medical bed. I believe at this point he is requiring enough support he should not be transferred to a psychiatric facility that she be transferred to a medical bed where there are psychiatric and neurology consults available. Progress Note #6: Time: 07:54 Progress Note Patient has had a minimal response to Ativan this morning. He had a better response to it yesterday. Chest x-ray was read as possible atelectasis versus possible infiltrate in the lung bases. Given the elevation in CRP and concern he may have some early pneumonia developing. I received a call back from [facility] and spoke with Dr. Acosta. He is going to consult with their psychiatric liaison before determining acceptance. Progress Note #7: Time: 10:47 Progress Note Patient has been accepted at the senior serenity unit at [facility]. Progress Note #8: Time: 10:58 Progress Note This patient will be transferred via EMS. He requires EMS for transfer as he has catatonic, is requiring supplemental oxygen, has complicating health issues such as pneumonia, may need assistance with secretion management, and is on IV fluids at present. His primary diagnosis is behavioral health with catatonia but he has significant complicating health issues including rigid immobility and pneumonia. These issues make him unsafe to travel by private vehicle. He is being admitted to behavioral health unit with medical consult. (NABIL BUTTERFIELD MD) Progress Note : Progress Note 2100--ASSUMED CARE FROM DR. BUTTERFIELD. PT IS STABLE AT THIS TIME. NO CHANGE IN MENTATION. 2203--CALLED . THEY REPORT STILL NO BEDS AVAILABLE AT THIS TIME. BUT ANTICIPATE BEDS WILL BE AVAILABLE TOMORROW 2204--CALLED [facility]. NO BEDS AVAILABLE 2207--CALLED [facility]. NO BEDS AVAILABLE 2210--CALLED [facility]. NO BEDS AVAILABLE 2212--CALLED [facility]. NO BEDS AVAILABLE. PT GIVEN BENADRYL AND SCOPOLAMINE PATCH FOR SECRETIONS, AND BENADRYL WITH POTENTIAL ADDED BENEFIT OF IMPROVING HIS RIGIDITY. PT NOTED TO HAVE SOME POOLING OF SECRETIONS WITH UPPER AIRWAY NOISE NOTED, BUT MAINTAINING O2 SATURATIONS AND RESPIRATIONS ARE NOT LABORED. RT GAVE NEB TREATMENT AND DID DEEP NT SUCTIONING WITH RETURN OF > 100 ML OF CLEAR MUCOUS. FAMILY REPORTS THAT PT WAS TO HAVE STARTED ON ZITHROMAX FOR UPPER RESPIRATORY INFECTION, WHILE AT THE LONGTERM, BUT PT WAS NOT ABLE TO SWALLOW, SO THEY REPORT THAT IT HAS NOT BEEN GIVEN IV ROCEPHIN AND ZITHROMAX WERE GIVEN PT GIVEN ADDITIONAL IV FLUIDS. 0350--PT CONTINUES TO REST, DOES NOT APPEAR TO HAVE ANY SIGNIFICANT RIGIDITY AT THIS TIME, BUT IS SLEEPING SOUNDLY. NO POOLING OF SECRETIONS, AND RESPIRATIONS ARE EVEN AND UNLABORED. VITALS ARE STABLE 0600--PT IS STILL STABLE, NO POOLING OF SECRETIONS OR DIFFICULTY BREATHING. VITALS STABLE AND MAINTAINING O2 SATS. CARE TURNED BACK OVER TO DR. BUTTERFIELD. (CHAPIN BRADY DO) Diagnostic Imaging Diagonstic Imaging: Xray Plain Films/CT/US/NM/MRI: chest Comments Chest x-ray viewed by me and report reviewed. See report below: NAME: RE[facility]I [facility] REC#: [id number] PT STATUS: REG ER : 1955 PHYSICIAN: NABIL BUTTERFIELD MD ADMIT DATE: 05/24/19/ER Signed Date of Exam:05/24/19 CHEST 1 VIEW, AP/PA ONLY INDICATION: Nonverbal. Abnormal breath sounds. FINDINGS: No focal infiltrate or consolidation is evident. There is no effusion. There is no pneumothorax. Heart size and mediastinal contours appear appropriate and pulmonary vascularity appears normal. No acute or suspicious osseous abnormality is evident. IMPRESSION: No radiographic evidence of an acute cardiopulmonary process. Dictated by: Dictated on workstation # [id number] Dict: 05/24/19 0958 Trans: 05/24/19 1103 DANIELA [id number] Interpreted by: CASSANDRA REDDY MD Electronically signed by: CASSANDRA REDDY MD 05/24/19 1103 (NABIL BUTTERFIELD MD) Departure Impression Primary Impression: Catatonia associated with another mental disorder Additional Impressions: IMPAIRED ABILITY TO HANDLE SECRETIONS Pneumonia Qualified Codes: J18.1 - Lobar pneumonia, unspecified organism Disposition: XF [facility] HOSP Condition: Stable Transfer Transfer Reason: Exceeds level of care Time Spoke to Accepting Phy: 07:50 Transfer Progress Notes Case was discussed with Dr. Acosta who consulted with the psychiatric team. They have accepted the patient to the [facility] Unit at [facility] in [place]. Transfer Time: 12:14 Transfer Facility: [facility] Method of Transfer: EMS (NABIL BUTTERFIELD MD) Departure-Patient Inst. Referrals: [facility]/JAQUELINE (PCP) Primary Care Physician ORLANDO REDMAN (Family) Primary Care Physician NABIL BUTTERFIELD MD May 24, 2019 09:25 CHAPIN BRADY DO May 25, 2019 03:54
[2019-05-24 09:26] LABS: BACTERIA,URINE NEGATIVE /HPF; BILIRUBIN,URINE 2+ (NEGATIVE)
[2019-05-24 09:32] LABS: ALANINE AMINOTRANSFERASE 15 U/L (0-55); ALBUMIN 4.1 GM/DL (3.2-4.5); ALKALINE PHOSPHATASE 63 U/L (40-136); BILIRUBIN,TOTAL 0.6 MG/DL (0.1-1.0); BUN/CREATININE RATIO 27; CALCIUM 9.8 MG/DL (8.5-10.1); CARBON DIOXIDE 23 MMOL/L (21-32); CHLORIDE 106 MMOL/L (98-107); CREATINE KINASE 128 U/L (30-200); CREATININE SERUM 1.09 MG/DL (0.60-1.30); GFR ESTIMATED > 60; GLUCOSE 93 MG/DL (70-105); MAGNESIUM 2.5 MG/DL (1.6-2.4); POTASSIUM 4.4 MMOL/L (3.6-5.0); SODIUM 146 MMOL/L (135-145); TOTAL PROTEIN 8.2 GM/DL (6.4-8.2)
--- NOTE | 2019-05-24 10:02 | Diagnostic Imaging Report ---
INDICATION: Nonverbal. Abnormal breath sounds. FINDINGS: No focal infiltrate or consolidation is evident. There is no effusion. There is no pneumothorax. Heart size and mediastinal contours appear appropriate and pulmonary vascularity appears normal. No acute or suspicious osseous abnormality is evident. IMPRESSION: No radiographic evidence of an acute cardiopulmonary process. Dictated by: Dictated on workstation # [id number]
[2019-05-24 13:32] LABS: AMPHETAMINE SCREEN, URINE NEGATIVE (NEGATIVE); BARBITURATE SCREEN URINE NEGATIVE (NEGATIVE); BENZODIAZEPINES SCREEN URINE POSITIVE (NEGATIVE); CANNABINOID SCREEN, URINE NEGATIVE (NEGATIVE); COCAINE SCREEN URINE NEGATIVE (NEGATIVE); METHADONE STAT NEGATIVE (NEGATIVE); METHAMPHETAMINE SCREEN URINE S NEGATIVE (NEGATIVE); OPIATE SCREEN URINE NEGATIVE (NEGATIVE); OXYCODONE STAT NEGATIVE (NEGATIVE); PROPOXYPHENE STAT NEGATIVE (NEGATIVE); TRICYCLIC ANTIDEPRESSANTS SCRE NEGATIVE (NEGATIVE)
--- NOTE | 2019-05-24 15:02 | NUR ---
PT LAYING IN BED. PT FAMILY AT BEDSIDE. CURRENTLY WAITING TO HEAR BACK FROM [facility] ABOUT ACCEPTANCE.
[2019-05-24] MEDS ORDERED: LACTATED RINGERS 1,000 ML IV ONE (15:06)
--- NOTE | 2019-05-24 18:57 | NUR ---
Report received from ARNIE Hernandez
--- NOTE | 2019-05-24 20:20 | NUR ---
Pt resting in bed. This RN and PCCT pulled pt up in bed. Pt is still nonverbal at this time. Family at bedside, no needs voiced.
[2019-05-24] MEDS ORDERED: AZITHROMYCIN INJECTION 500 MG in NS (IVPB) 250 ML IV ONE (22:30)
[2019-05-24] MEDS ORDERED: RT-ALBUTEROL/IPRATROPIUM 3 ML (DUONEB) VIAL INH ONE (22:30)
[2019-05-24] MEDS ORDERED: cefTRIAXone FOR IV USE 1,000 MG in WATER (STERILE) FOR INJECTION 10 ML IV ONE (22:30)
[2019-05-24] MEDS ORDERED: D5 1/2 NS W/KCL 20 MEQ/L 1,000 ML IV SCH (22:30)
[2019-05-24 22:54] VITALS: BP 116/77
[2019-05-24] MEDS ORDERED: diphenhydrAMINE 50 MG/ML INJ (BENADRYL) IVP ONE (23:00)
[2019-05-24] MEDS ORDERED: SCOPOLAMINE 1.5 MG (TRANSDERM-SCOP) PATCH TD ONE (23:00)
--- NOTE | 2019-05-25 00:23 | NUR ---
Pt resting in bed. Vitals stable. Pt family at bedside, no needs at this time. Warm blanket provided.
--- NOTE | 2019-05-25 03:18 | NUR ---
Pt still resting, vitals stable. Re-positioned to side. Family at bedside, no needs at this time.
--- NOTE | 2019-05-25 03:19 | NUR ---
Called Migration Specialist to aquire about bringing a floor bed down for pt due to extensive hold in ER. Bg states he will see what he can do. Will continue to re-position pt until then.
--- NOTE | 2019-05-25 04:07 | NUR ---
Pt transferred to floor bed at this time. Positioned to right side. Family at bedside, no further needs.
--- NOTE | 2019-05-25 06:01 | NUR ---
Pt laying in bed, vitals stable. Pt turned to left side at this time. Call light in reach.
[2019-05-25] MEDS ORDERED: LORazepam INJ 2 MG/ML (ATIVAN) VIAL IVP ONE ×2 (06:30)
--- NOTE | 2019-05-25 06:31 | NUR ---
Recent BP readings low, noticed left arm was rigid, straightened arm out and BP 117/84.
[2019-05-25 06:36] LABS: BASOPHILS % (AUTO) 0 % (0-10); EOSINOPHILS # (AUTO) 0.1 10^3/uL (0.0-0.3); EOSINOPHILS % (AUTO) 1 % (0-10); HEMATOCRIT 40 % (40-54); HEMOGLOBIN 12.7 G/DL (13.3-17.7); LYMPHOCYTES # (AUTO) 2.5 X 10^3 (1.0-4.0); LYMPHOCYTES % (AUTO) 25 % (12-44); MEAN CORPUSCULAR HEMOGLOBIN 33 PG (25-34); MEAN CORPUSCULAR HGB CONC 32 G/DL (32-36); MEAN CORPUSCULAR VOLUME 103 FL (80-99); MEAN PLATELET VOLUME 10.1 FL (7.4-10.4); MONOCYTES # (AUTO) 0.9 X 10^3 (0.0-1.0); MONOCYTES % (AUTO) 9 % (0-12); NEUTROPHILS # (AUTO) 6.3 X 10^3 (1.8-7.8); NEUTROPHILS % (AUTO) 64 % (42-75); PLATELET COUNT 222 10^3/uL (130-400); RED CELL DISTRIBUTION WIDTH 13.2 % (10.0-14.5); WHITE BLOOD COUNT 9.8 10^3/uL (4.3-11.0)
--- NOTE | 2019-05-25 07:00 | NUR ---
report recieved from [facility] at this time. Care assumed by this rn.
[2019-05-25 07:03] LABS: BUN/CREATININE RATIO 24; CALCIUM 8.5 MG/DL (8.5-10.1); CARBON DIOXIDE 24 MMOL/L (21-32); CHLORIDE 112 MMOL/L (98-107); CREATINE KINASE 103 U/L (30-200); CREATININE SERUM 0.79 MG/DL (0.60-1.30); GFR ESTIMATED > 60; GLUCOSE 113 MG/DL (70-105); MAGNESIUM 2.3 MG/DL (1.6-2.4); SODIUM 146 MMOL/L (135-145)
--- NOTE | 2019-05-25 07:28 | Diagnostic Imaging Report ---
Portable chest compared to prior study from 05/24/2019. INDICATION: Shortness of breath. FINDINGS: When compared to the prior examination, lung volumes are diminished with new bibasilar atelectasis or infiltrate. No large effusion evident. There is no pneumothorax. Heart size and mediastinal contours are stable and central pulmonary vascularity appears appropriate. There is no acute or suspicious osseous abnormality. IMPRESSION: 1. Low lung volumes with new bibasilar atelectasis or infiltrate. Dictated by: Dictated on workstation # [id number]
--- NOTE | 2019-05-25 07:38 | NUR ---
Pt family at bedside. Pt resting in bed with eyes closed.
--- NOTE | 2019-05-25 09:40 | NUR ---
pt daughter at pt bedside. pt resting with eyes closed. no appearent distress noted. breathing is regular and relaxed at this time. Dr. harris informing pt family of transfer progress.
--- NOTE | 2019-05-25 10:59 | NUR ---
SHIFT CAPTJOSÉ MIGUEL RODRIGUEZ CONTACTED ABOUT PT TRANSFER TO [facility] AT THIS TIME. REPORTS WILL CALL BACK TO CONFIRM ABILTY TO TRANSFER.
[2019-05-25 12:14] VITALS: BP 128/75
== END 2019-05-25 12:14 | disposition short-term general hospital (02) ==
LOC: EDUNIT# 08:25 → ER 08:27
DX: F06.1 Catatonic disorder due to known physiological condition (principal); J98.8 Other specified respiratory disorders; J18.9 Pneumonia, unspecified organism; I10 Essential (primary) hypertension; F41.9 Anxiety disorder, unspecified; F32.9 Major depressive disorder, single episode, unspecified
CPT/HCPCS: 36415; 51702; 71045; 80048; 80053; 80306; 81000; 82550; 83735; 84443; 85025; 86141; 87070; 87077; 87186; 87205; 87804; 94640; 96361; 96365; 96375; 96376

== ENCOUNTER → 2019-07-14 | Outpatient (CLI) | payer OTHER ==
--- NOTE | 2019-07-14 10:34 | Diagnostic Imaging Report ---
INDICATION: Dysphagia. Patient has a PEG tube. TECHNIQUE: The study was performed in conjunction with Speech Pathology. Video fluoroscopy was performed during the swallowing of barium in multiple consistencies. A total of 1 minute and 7 seconds of fluoroscopic time was utilized. FINDINGS: The patient ingested a very small volume of thin liquid as well as nectar and applesauce consistency. There is very poor epiglottic movement. The epiglottis does show some mild posterior movement but no inversion. There is deep laryngeal penetration during the swallowing of thin liquid. No aspiration was observed with any consistency. There is moderate vallecular residue, however, noted with all consistencies. IMPRESSION: Abnormal modified barium swallow, as described. There is very poor epiglottic movement as well as moderate vallecular residue present. There was an episode of laryngeal penetration with thin barium. Dictated by: Dictated on workstation # [id number]
== END ==
LOC: RAD 07-11 10:13
PROVIDERS: ATTEND Nurse Practitioner Community Health
DX: R13.10 Dysphagia, unspecified (principal)
CPT/HCPCS: 74230

== ENCOUNTER 2019-12-31 12:50 | Inpatient (IN) | payer OTHER ==
[2019-12-31] VITALS (10 sets, daily range): BP systolic 101–145; BP diastolic 65–74
[~2019-12-31] VITALS: Ht 172.7 cm; Wt 75.8 kg
[2019-12-31] MEDS ORDERED: LACTATED RINGERS 1,000 ML IV ONE (13:16)
[2019-12-31 13:22] LABS: ABG BASE EXCESS -0.1 MMOL/L (-2.5-2.5); ABG OXYGEN SATURATION 92 % (94-100); ABG PCO2 29 MMHG (35-45); ABG PH 7.51 (7.37-7.43); ABG PO2 63 MMHG (79-93); ALLENS TEST YES-POS; INSPIRED O2 RA; PATIENT TEMP 95.6; VENTILATOR NO
[2019-12-31] MEDS ORDERED: VANCOMYCIN INJECTION 1,500 MG in NS IV 500 ML 500 ML IV ONE (13:30)
[2019-12-31] MEDS ORDERED: CEFEPIME INJECTION 1,000 MG in WATER (STERILE) FOR INJECTION 10 ML IV ONE (13:30)
--- NOTE | 2019-12-31 13:30 | ED Respiratory ---
General Chief Complaint: Respiratory Problems Stated Complaint: SOA Nursing Triage Note: PT TO ROOM 09 WITH C/O SOB X2 WEEKS. PT DENIES FEVER/COUGH. PT AFEBRILE UPON ARRIVAL. Source: patient Exam Limitations: no limitations History of Present Illness Date Seen by Provider: Dec 31, 2019 Time Seen by Provider: 13:10 Initial Comments Patient presents ER by private conveyance with chief complaint of shortness of breath the past 2 weeks. No fevers chills cough. No history of lung disease and does not smoke cigarettes. Went to the doctor's office today and they shot chest x-ray after hearing diminished lung sounds on the left side. Nose he had a lot of fluid around the left lung. They said he had normal vital signs and instructed him to come to the ER for further evaluation. No known sick contacts. Patient's poor historian. He has a history of hypertension. He has a PEG tube in place but does not know why. 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 Allergies and Home Medications Allergies Coded Allergies: No Known Allergies (Verified Allergy, Unknown, 07/18/17) Home Medications Citalopram Hydrobromide 10 Mg Tablet, 10 MG PO HS, (Reported) Lorazepam 1 Mg Tablet, 2 MG PO TID Prescribed by: FAUSTO GUEVARA on 07/25/17 0853 Prazosin HCl 2 Mg Capsule, 2 MG PO HS, (Reported) Patient Home Medication List Home Medication List Reviewed: Yes Review of Systems Review of Systems Constitutional: No chills, No diaphoresis, No fever, No malaise EENTM: No ear discharge, No ear pain, No eye pain Respiratory: No cough, No hemoptysis, No phlegm; short of breath; No wheezing Cardiovascular: No chest pain, No edema, No Hx of Intervention, No palpitations, No vascular heart diseas Gastrointestinal: No abdominal pain, No constipation, No diarrhea, No nausea Genitourinary: No discharge, No dysuria Musculoskeletal: No back pain, No joint pain All Other Systems Reviewed Negative Unless Noted: Yes Past Pjvibvx-Ewzqbi-Uslrja Hx Patient Social History Alcohol Use: Denies Use Recreational Drug Use: No Smoking Status: Never a Smoker 2nd Hand Smoke Exposure: No Recent Foreign Travel: No Contact w/Someone Who Travel: No Recent Infectious Disease Expo: No Recent Hopitalizations: Yes Physical Abuse: No Sexual Abuse: No Mistreated: No Fear: No Seasonal Allergies Seasonal Allergies: No Past Medical History Surgeries: Yes Respiratory: No Cardiac: Yes Hypertension Neurological: Yes (Lewy body dementia ruled out, TRANSIENT CEREBRAL ISCHEMIC ATTACKS) Genitourinary: Yes (hx of urinary retention ) Gastrointestinal: No Musculoskeletal: No Endocrine: No HEENT: No Cancer: No Psychosocial: Yes (hx of hallucinations, CATONIC SCHIZOPHRENIA) Anxiety, Personality Disorder, Schizophrenia, Depression Integumentary: No Family Medical History FH: dementia G8 SISTER FH: neurologic disorder G8 SISTER Physical Exam Vital Signs - First Documented 12/31/19 13:03 Temp 35.3 Pulse 86 Resp 17 B/P (MAP) 101/67 (78) O2 Delivery Room Air Capillary Refill : Less Than 3 Seconds Height: 5'8.00" Weight: 170lbs. 1.0oz. 77.323054ht; 26.00 BMI Method:Stated General Appearance: WD/WN, mild distress Eyes: Bilateral Eye Normal Inspection, Bilateral Eye PERRL, Bilateral Eye EOMI HEENT: PERRL/EOMI, normal ENT inspection, TMs normal, pharynx normal Neck: full range of motion, supple, normal inspection Respiratory: lungs clear, no accessory muscle use, respiratory distress (mild, oxygen saturation 92-93% on room air with no labored breathing.), decreased breath sounds ( Left greater than right) Cardiovascular: normal peripheral pulses, regular rate, rhythm Gastrointestinal: normal bowel sounds, non tender, soft, other (PEG tube in place without significant erythema or discharge) Extremities: normal range of motion, normal capillary refill Neurologic/Psychiatric: no motor/sensory deficits, alert, oriented x 3, other (flat affect but cooperative) Skin: normal color, warm/dry Focused Exam Lactate Level 12/31/19 13:10: Lactic Acid Level 3.16*H 12/31/19 15:28: Lactic Acid Level 3.01*H Lactic Acid Level Laboratory Tests Test 12/31/19 13:10 12/31/19 15:28 Lactic Acid Level 3.16 MMOL/L (0.50-2.00) *H 3.01 MMOL/L (0.50-2.00) *H Progress/Results/Core Measures Suspected Sepsis Recent Fever Within 48 Hours: No Infection Criteria Present: None New/Unexplained Altered Menta: No Sepsis Screen: No Definite Risk SIRS Temperature: Pulse: 86 Respiratory Rate: 17 Laboratory Tests 12/31/19 13:10: White Blood Count 29.3H Blood Pressure 101 /67 Mean: 78 12/31/19 13:10: Lactic Acid Level 3.16*H 12/31/19 15:28: Lactic Acid Level 3.01*H Laboratory Tests 12/31/19 13:10: Creatinine 1.08, INR Comment 1.2, Platelet Count 392, Total Bilirubin 0.4 Results/Orders Lab Results Laboratory Tests Test 12/31/19 13:10 12/31/19 13:17 12/31/19 13:58 12/31/19 14:05 Range/Units White Blood Count 29.3 H 4.3-11.0 10^3/uL Red Blood Count 4.12 L 4.30-5.52 10^6/uL Hemoglobin 13.7 13.3-17.7 g/dL Hematocrit 43 40-54 % Mean Corpuscular Volume 104 H 80-99 fL Mean Corpuscular Hemoglobin 33 25-34 pg Mean Corpuscular Hemoglobin Concent 32 32-36 g/dL Red Cell Distribution Width 13.7 10.0-14.5 % Platelet Count 392 130-400 10^3/uL Mean Platelet Volume 12.2 9.0-12.2 fL Immature Granulocyte % (Auto) 1 % Neutrophils (%) (Auto) 91 H 42-75 % Lymphocytes (%) (Auto) 7 L 12-44 % Monocytes (%) (Auto) 1 0-12 % Eosinophils (%) (Auto) 0 0-10 % Basophils (%) (Auto) 0 0-10 % Neutrophils # (Auto) 26.7 H 1.8-7.8 10^3/uL Lymphocytes # (Auto) 1.9 1.0-4.0 10^3/uL Monocytes # (Auto) 0.4 0.0-1.0 10^3/uL Eosinophils # (Auto) 0.0 0.0-0.3 10^3/uL Basophils # (Auto) 0.1 0.0-0.1 10^3/uL Immature Granulocyte # (Auto) 0.2 H 0.0-0.1 10^3/uL Neutrophils % (Manual) 85 % Lymphocytes % (Manual) 7 % Monocytes % (Manual) 0 % Eosinophils % (Manual) 0 % Basophils % (Manual) 0 % Band Neutrophils 8 % Blood Morphology Comment NORMAL Prothrombin Time 15.8 H 12.2-14.7 SEC INR Comment 1.2 0.8-1.4 Activated Partial Thromboplast Time 27 24-35 SEC D-Dimer 2.99 H 0.00-0.49 UG/ML Sodium Level 160 *H 135-145 MMOL/L Potassium Level 3.3 L 3.6-5.0 MMOL/L Chloride Level 123 H 98-107 MMOL/L Carbon Dioxide Level 23 21-32 MMOL/L Anion Gap 14 5-14 MMOL/L Blood Urea Nitrogen 37 H 7-18 MG/DL Creatinine 1.08 0.60-1.30 MG/DL Estimat Glomerular Filtration Rate > 60 BUN/Creatinine Ratio 34 Glucose Level 185 H 70-105 MG/DL Lactic Acid Level 3.16 *H 0.50-2.00 MMOL/L Calcium Level 8.6 8.5-10.1 MG/DL Corrected Calcium 9.7 8.5-10.1 MG/DL Phosphorus Level 4.0 2.3-4.7 MG/DL Magnesium Level 2.8 H 1.6-2.4 MG/DL Total Bilirubin 0.4 0.1-1.0 MG/DL Aspartate Amino Transf (AST/SGOT) 102 H 5-34 U/L Alanine Aminotransferase (ALT/SGPT) 104 H 0-55 U/L Alkaline Phosphatase 336 H 40-136 U/L Troponin I < 0.028 <0.028 NG/ML C-Reactive Protein High Sensitivity 32.53 H 0.00-0.50 MG/DL Total Protein 7.5 6.4-8.2 GM/DL Albumin 2.6 L 3.2-4.5 GM/DL Blood Gas Puncture Site RR Blood Gas Patient Temperature 95.6 Arterial Blood pH 7.51 H 7.37-7.43 Arterial Blood Partial Pressure CO2 29 L 35-45 MMHG Arterial Blood Partial Pressure O2 63 L 79-93 MMHG Arterial Blood HCO3 23 23-27 MMOL/L Arterial Blood Total CO2 24.0 21.0-31.0 MMOL/L Arterial Blood Oxygen Saturation 92 L 94-100 % Arterial Blood Base Excess -0.1 -2.5-2.5 MMOL/L Irwin Test YES-POS Blood Gas Ventilator Setting NO Blood Gas Inspired Oxygen RA Coronavirus 2018 (JEANNINE) Negative Negative Urine Color YELLOW Urine Clarity CLEAR Urine pH 6.0 5-9 Urine Specific Gantt 1.015 L 1.016-1.022 Urine Protein TRACE H NEGATIVE Urine Glucose (UA) NEGATIVE NEGATIVE Urine Ketones NEGATIVE NEGATIVE Urine Nitrite NEGATIVE NEGATIVE Urine Bilirubin NEGATIVE NEGATIVE Urine Urobilinogen 2.0 < = 1.0 MG/DL Urine Leukocyte Esterase NEGATIVE NEGATIVE Urine RBC (Auto) NEGATIVE NEGATIVE Urine RBC NONE /HPF Urine WBC 0-2 /HPF Urine Squamous Epithelial Cells RARE /HPF Urine Crystals NONE /LPF Urine Bacteria TRACE /HPF Urine Casts NONE /LPF Urine Mucus SMALL H /LPF Urine Culture Indicated NO Test 12/31/19 15:28 Range/Units Lactic Acid Level 3.01 *H 0.50-2.00 MMOL/L Micro Results Microbiology 12/31/19 Influenza Types A,B Antigen (BRODY) - Final, Complete My Orders Orders - DAVINA CABELLO Cbc With Automated Diff (12/31/19 13:16) Comprehensive Metabolic Panel (12/31/19 13:16) Blood Culture (12/31/19 13:16) Sputum Culture (12/31/19 13:16) Urinalysis (12/31/19 13:16) Urine Culture (12/31/19 13:16) Protime With Inr (12/31/19 13:16) Partial Thromboplastin Time (12/31/19 13:16) Chest 1 View, Ap/Pa Only (12/31/19 13:16) Ed Iv/Invasive Line Start (12/31/19 13:16) Ed Iv/Invasive Line Start (12/31/19 13:16) Ekg Tracing (12/31/19 13:16) Troponin I (12/31/19 13:16) Vital Signs Adult Sepsis Patie Q15M (12/31/19 13:16) O2 (12/31/19 13:16) Remove Rings In Anticipation O (12/31/19 13:16) Lactic Acid Analyzer (12/31/19 13:16) Lactated Ringers (Lr 1000 Ml Iv Solution (12/31/19 13:16) Cefepime Injection (Maxipime Injection) (12/31/19 13:30) Vancomycin Injection (Vancomycin Injecti (12/31/19 13:30) Arterial Blood Gas (12/31/19 13:16) Manual Differential (12/31/19 13:10) Vancomycin Injection (Vancomycin Injecti (12/31/19 13:46) Covid 19 Inhouse Test (12/31/19 13:50) Influenza A And B Antigens (12/31/19 13:50) 1/2 Ns Iv Solution (0.45% Sodium Chlorid (12/31/19 14:00) Magnesium (12/31/19 14:01) Procalcitonin (Pct) (12/31/19 14:01) Phosphorus (12/31/19 14:01) Coronavirus Sars-Cov-2 So 2018 (12/31/19 14:21) Hs C Reactive Protein (12/31/19 14:28) Fibrin Degradation Products (12/31/19 14:28) Ct Angio Chest W (12/31/19 14:28) Iohexol Injection (Omnipaque 350 Mg/Ml 1 (12/31/19 14:45) Received Contrast (Hold Metformin- Contr (12/31/19 14:45) Ns (Ivpb) (Sodium Chloride 0.9% Ivpb Bag (12/31/19 14:45) Medications Given in ED Current Medications Medications Dose Ordered Sig/Cindi Route Start Time Stop Time Status Last Admin Dose Admin Cefepime HCl 1000 mg/Sterile Water 10 ml @ 200 mls/hr ONCE ONCE IV 12/31/19 13:30 12/31/19 13:32 DC 12/31/19 13:44 200 MLS/HR Iohexol 75 ml ONCE ONCE IV 12/31/19 14:45 12/31/19 14:46 DC 12/31/19 15:08 75 ML Lactated Ringer's 1,000 ml @ 0 mls/hr Q0M ONCE IV 12/31/19 13:16 12/31/19 13:20 DC 12/31/19 13:44 999 MLS/HR Sodium Chloride 100 ml ONCE ONCE IV 12/31/19 14:45 12/31/19 14:46 DC 12/31/19 15:08 90 ML Vancomycin HCl 1500 mg/Sodium Chloride 500 ml @ 257 mls/hr ONCE ONCE IV 12/31/19 13:30 12/31/19 15:26 DC 12/31/19 13:53 257 MLS/HR Vital Signs/I&O 12/31/19 13:03 Temp 35.3 Pulse 86 Resp 17 B/P (MAP) 101/67 (78) O2 Delivery Room Air Capillary Refill : Less Than 3 Seconds Blood Pressure Mean: 78 Progress Note #1: Time: 13:33 Progress Note Given the history that he has a large pleural effusion on the left. Plan to get an x-ray. He is not having fever cough chills or signs of pneumonia. A CT of the chest may help further characterize the situation. Since he has a PEG tube would like to be sure that the PEG tube in the optimal placement. ABG. We'll put him on 2 L by nasal cannula. His heart rates in the 90s probably owing to his mild respiratory distress. If he has an elevated white count and he could be not to be septic if we find a source for infection. Ultimately he'll probably need rep laced in the hospital and have surgery placed a pleural catheter. He is not in any immediate distress. Progress Note #2: Time: 16:06 Progress Note The patient is resting comfortably on 2 L per nasal cannula with an oxygen saturation of 95-98%. He is not requesting anything for pain at this moment. He has a negative rapid COVID. The empyema is highly unlikely to be related to a viral illness so we'll not be adding any further viral swabs today. ECG Initial ECG Impression Date: Dec 31, 2019 Initial ECG Impression Time: 13:27 Initial ECG Rate: 84 Initial ECG Rhythm: Normal Sinus Initial ECG Intervals: Normal Initial ECG Impression: Normal Comment Normal sinus rhythm without clinically relevant ST elevation or depression. Diagnostic Imaging Diagonstic Imaging: Xray Plain Films/CT/US/NM/MRI: chest (1v) Comments NAME: REJI JADE [facility] REC#: [id number] PT STATUS: REG ER : 1955 PHYSICIAN: DAVINA CABELLO MD ADMIT DATE: 12/31/19/ER Draft Date of Exam:12/31/19 CHEST 1 VIEW, AP/PA ONLY INDICATION: Shortness of breath for 2 weeks. TIME OF EXAM: 2:27 PM Correlation is made with prior chest from 05/25/2019. There appears to be a large left-sided pleural effusion. This may be loculated along the left chest wall. CT would be recommended for further evaluation. The right lung is clear. No pneumothorax is seen. IMPRESSION: Findings suspicious for a loculated large left effusion. CT chest is recommended for further evaluation. Dictated on workstation # [id number] Dict: 12/31/19 1437 Trans: 12/31/19 1440 [facility] [id number] Interpreted by: MARIBELL CORDERO MD Electronically signed by: Reviewed: Reviewed by Me Diagonstic Imaging: CT Plain Films/CT/US/NM/MRI: chest Comments NAME: REJI JADE [facility] REC#: [id number] PT STATUS: REG ER : 1955 PHYSICIAN: DAVINA CABELLO MD ADMIT DATE: 12/31/19/ER Draft Date of Exam:12/31/19 CT ANGIO CHEST W PROCEDURE: CT angiography of the chest with contrast. TECHNIQUE: Multiple contiguous axial images were obtained through the chest after uneventful bolus administration of intravenous contrast. 3D reconstructed CTA MIP acquisitions were also performed. Auto Exposure Controls were utilized during the CT exam to meet ALARA standards for radiation dose reduction. INDICATION: Sepsis and abnormal chest x-ray. FINDINGS: There is multiloculated left pleural complex collections with fluid debris and bubbles of anti-dependent air. These are found throughout the left chest. The largest posterior locule extends into the posterior sulcus and measures an AP thickness or depth of 6.5 cm. The largest upper collection anterolaterally extends to the apex with a thickness of 6.5 cm. Medial apical collection adjacent to the mediastinal fat measures a thickness of 3 cm. The lung parenchyma peripheral to the collections is focally consolidated and atelectatic. Multiseptated and multiloculated infected pleural collections and empyema are suspected, correlate clinically. Given their multiplicity, it is doubtful that percutaneous drainage would be curative but fluid sampling and analysis could be performed with CT or sonographic guidance, as desired. The right pleural space is negative. There is groundglass infiltrate and parenchymal opacity throughout the right upper lobe and minimally involving the lower lobe. There is a gastrostomy tube in the stomach. There is no pneumothorax. There were no findings of pulmonary arterial embolus. The aorta is patent and nonaneurysmal. IMPRESSION: 1. Multiloculated complex left pleural collections comprised of fluid debris and air, suspicious for infectious etiology. Subjacent left lung partial atelectasis adjacent to the thickened pleura and right lung groundglass infiltrates owing to pneumonitis or pneumonia. The right pleural space is negative. 2. Negative for PE or acute aortic disease. Dictated on workstation # [id number] Dict: 12/31/19 1508 Trans: 12/31/19 1521 [id number] Interpreted by: MONTRELL GRISSOM Electronically signed by: Reviewed: Reviewed by Me Departure Communication (Admissions) Time/Spoke to Admitting Phy: 15:45 I discussed the case with Dr. Milton and she would like consultation with general surgery and pulmonary. Time/Spoke to Consulting Phy: 15:50 Dr. Yang: He agrees to consult on the patient. He feels the patient's empyema would probably need to be drained with a large bore chest tube such as a 32 Syri[place]. He plans to put him on his surgeries cycle tomorrow. He wants broad- spectrum antibiotics and admit to medicine. Impression Primary Impression: Empyema of left pleural space Additional Impressions: Acute hypernatremia Sepsis Qualified Codes: A41.9 - Sepsis, unspecified organism; R65.20 - Severe sepsis without septic shock; J96.01 - Acute respiratory failure with hypoxia Acute respiratory failure with hypoxia Disposition: ADMITTED INPATIENT Condition: Stable Admissions Decision to Admit Reason: Admit from ER (General) Decision to Admit/Date: Dec 31, 2019 Time/Decision to Admit Time: 15:28 Departure-Patient Inst. Referrals: NO,LOCAL PHYSICIAN (PCP/Family) Primary Care Physician DAVINA CABELLO Dec 31, 2019 13:30
[2019-12-31 13:31] LABS: BASOPHILS # (AUTO) 0.1 10^3/uL (0.0-0.1); BASOPHILS % (AUTO) 0 % (0-10); EOSINOPHILS % (AUTO) 0 % (0-10); HEMATOCRIT 43 % (40-54); HEMOGLOBIN 13.7 g/dL (13.3-17.7); LYMPHOCYTES # (AUTO) 1.9 10^3/uL (1.0-4.0); LYMPHOCYTES % (AUTO) 7 % (12-44); MEAN CORPUSCULAR HEMOGLOBIN 33 pg (25-34); MEAN CORPUSCULAR HGB CONC 32 g/dL (32-36); MEAN CORPUSCULAR VOLUME 104 fL (80-99); MEAN PLATELET VOLUME 12.2 fL (9.0-12.2); MONOCYTES # (AUTO) 0.4 10^3/uL (0.0-1.0); MONOCYTES % (AUTO) 1 % (0-12); NEUTROPHILS # (AUTO) 26.7 10^3/uL (1.8-7.8); NEUTROPHILS % (AUTO) 91 % (42-75); PLATELET COUNT 392 10^3/uL (130-400); WHITE BLOOD COUNT 29.3 10^3/uL (4.3-11.0)
[2019-12-31 13:44] LABS: ALBUMIN 2.6 GM/DL (3.2-4.5); CHLORIDE 123 MMOL/L (98-107); INR 1.2 (0.8-1.4); POTASSIUM 3.3 MMOL/L (3.6-5.0); PROTHROMBIN TIME PATIENT 15.8 SEC (12.2-14.7)
[2019-12-31 13:45] LABS: CALCIUM 8.6 MG/DL (8.5-10.1)
[2019-12-31 13:46] LABS: GLUCOSE 185 MG/DL (70-105); TOTAL PROTEIN 7.5 GM/DL (6.4-8.2)
[2019-12-31] MEDS ORDERED: VANCOMYCIN 500 MG/VIAL IV ONE (13:46)
[2019-12-31 13:47] LABS: CARBON DIOXIDE 23 MMOL/L (21-32)
[2019-12-31 13:48] LABS: BILIRUBIN,TOTAL 0.4 MG/DL (0.1-1.0)
[2019-12-31 13:50] LABS: ALKALINE PHOSPHATASE 336 U/L (40-136); CREATININE SERUM 1.08 MG/DL (0.60-1.30); GFR ESTIMATED > 60
[2019-12-31 13:51] LABS: BUN/CREATININE RATIO 34
[2019-12-31 13:52] LABS: SODIUM 160 MMOL/L (135-145)
[2019-12-31 13:53] LABS: ALANINE AMINOTRANSFERASE 104 U/L (0-55)
[2019-12-31] MEDS ORDERED: 1/2 NS IV SOLUTION 1,000 ML IV ONE ×2 (14:00→17:00)
[2019-12-31 14:09] LABS: BAND NEUTROPHILS 8 %; BASOPHILS % (MANUAL) 0 %; EOSINOPHILS % (MANUAL) 0 %; LYMPHOCYTES % (MANUAL) 7 %; MONOCYTES % (MANUAL) 0 %; NEUTROPHILS % (MANUAL) 85 %; RBC MORPH NORMAL
[2019-12-31 14:12] LABS: BILIRUBIN,URINE NEGATIVE (NEGATIVE); CLARITY,URINE CLEAR; COLOR,URINE YELLOW; GLUCOSE, URINE (UA) NEGATIVE (NEGATIVE); KETONES,URINE NEGATIVE (NEGATIVE); LEUKOCYTE ESTERASE ,URINE NEGATIVE (NEGATIVE); NITRITE,URINE NEGATIVE (NEGATIVE); PROTEIN,URINE TRACE (NEGATIVE)
[2019-12-31 14:19] LABS: MAGNESIUM 2.8 MG/DL (1.6-2.4)
[2019-12-31 14:20] LABS: BACTERIA,URINE TRACE /HPF; SQUAMOUS EPITHELIAL CELL,UR RARE /HPF; WBC,URINE 0-2 /HPF
--- NOTE | 2019-12-31 14:40 | Diagnostic Imaging Report ---
INDICATION: Shortness of breath for 2 weeks. TIME OF EXAM: 2:27 PM Correlation is made with prior chest from 05/25/2019. There appears to be a large left-sided pleural effusion. This may be loculated along the left chest wall. CT would be recommended for further evaluation. The right lung is clear. No pneumothorax is seen. IMPRESSION: Findings suspicious for a loculated large left effusion. CT chest is recommended for further evaluation. Dictated by: Dictated on workstation # [id number]
[2019-12-31] MEDS ORDERED: HOLD METFORMIN - RECEIVED CONTRAST 20 ML VIAL IV SCH (14:45)
[2019-12-31] MEDS ORDERED: IOHEXOL 350 MG/ML 100 ML (OMNIPAQUE 350) VIAL IV ONE (14:45)
[2019-12-31] MEDS ORDERED: NS 100 ML (IVPB) BAG IV ONE (14:45)
--- NOTE | 2019-12-31 15:22 | Diagnostic Imaging Report ---
PROCEDURE: CT angiography of the chest with contrast. TECHNIQUE: Multiple contiguous axial images were obtained through the chest after uneventful bolus administration of intravenous contrast. 3D reconstructed CTA MIP acquisitions were also performed. Auto Exposure Controls were utilized during the CT exam to meet ALARA standards for radiation dose reduction. INDICATION: Sepsis and abnormal chest x-ray. FINDINGS: There is multiloculated left pleural complex collections with fluid debris and bubbles of anti-dependent air. These are found throughout the left chest. The largest posterior locule extends into the posterior sulcus and measures an AP thickness or depth of 6.5 cm. The largest upper collection anterolaterally extends to the apex with a thickness of 6.5 cm. Medial apical collection adjacent to the mediastinal fat measures a thickness of 3 cm. The lung parenchyma peripheral to the collections is focally consolidated and atelectatic. Multiseptated and multiloculated infected pleural collections and empyema are suspected, correlate clinically. Given their multiplicity, it is doubtful that percutaneous drainage would be curative but fluid sampling and analysis could be performed with CT or sonographic guidance, as desired. The right pleural space is negative. There is groundglass infiltrate and parenchymal opacity throughout the right upper lobe and minimally involving the lower lobe. There is a gastrostomy tube in the stomach. There is no pneumothorax. There were no findings of pulmonary arterial embolus. The aorta is patent and nonaneurysmal. IMPRESSION: 1. Multiloculated complex left pleural collections comprised of fluid debris and air, suspicious for infectious etiology. Subjacent left lung partial atelectasis adjacent to the thickened pleura and right lung groundglass infiltrates owing to pneumonitis or pneumonia. The right pleural space is negative. 2. Negative for PE or acute aortic disease. Dictated by: Dictated on workstation # [id number]
--- NOTE | 2019-12-31 16:57 | NUR ---
RECEIVED REPORT FROM ARNIE FELIPE
--- NOTE | 2019-12-31 17:30 | NUR ---
REJI JADE admitted to room 510-1, with an admitting diagnosis of EMPYEMA, SEPSIS, HYPERNATREMIA, COVID PUI, on 12/31/19 from ER via WHEELCHAIR, accompanied by THIS RN AND CHEMA ALEX. REJI JADE introduced to surroundings, call light, bed controls, phone, TV, temperature control, lights, meal times, smoking policy, visitor policy, side rail policy, bathrooms and showers. Patient Rights given to patient in the handbook. REJI JADE verbalizes understanding that [facility] is not responsible for the loss or damage to any personal effects or valuables that are kept in the patients possession during their hospitalization.
--- NOTE | 2019-12-31 17:37 | Pulmonary Consultation ---
History of Present Illness History of Present Illness Date Seen by Provider: Dec 31, 2019 Time Seen by Provider: 17:29 Date of Admission History of Present Illness 64yo poor historian he has a hx of catatonic schizophrenia, PEG tube, no known lung disease presented to ED secondary to worsening SOB over the last 2 wks. He denies f/ns/c. Pt has no sick comntacts. PT was found to have severe sepsis and probable emphyema per CT of chest. I am consulted for pulmonary management. Allergies and Home Medications Allergies Coded Allergies: No Known Allergies (Verified Allergy, Unknown, 07/18/17) Home Medications Citalopram Hydrobromide 10 Mg Tablet, 10 MG PO HS, (Reported) Lorazepam 1 Mg Tablet, 2 MG PO TID Prescribed by: FAUSTO GUEVARA on 07/25/17 0853 Prazosin HCl 2 Mg Capsule, 2 MG PO HS, (Reported) Past Jtrgcth-Pgndha-Qcwufu Hx Patient Social History Alcohol Use: Denies Use Recreational Drug Use: No Smoking Status: Never a Smoker 2nd Hand Smoke Exposure: No Recent Foreign Travel: No Contact w/Someone Who Travel: No Recent Infectious Disease Expo: No Recent Hopitalizations: Yes Physical Abuse: No Sexual Abuse: No Mistreated: No Fear: No Seasonal Allergies Seasonal Allergies: No Past Medical History Surgeries: Yes Respiratory: No Cardiac: Yes Hypertension Neurological: Yes (Lewy body dementia ruled out, TRANSIENT CEREBRAL ISCHEMIC ATTACKS) Genitourinary: Yes (hx of urinary retention ) Gastrointestinal: No Musculoskeletal: No Endocrine: No HEENT: No Cancer: No Psychosocial: Yes (hx of hallucinations, CATONIC SCHIZOPHRENIA) Anxiety, Personality Disorder, Schizophrenia, Depression Integumentary: No Family Medical History FH: dementia G8 SISTER FH: neurologic disorder G8 SISTER Review of Systems Time Seen by Provider: 17:33 Sepsis Event Evaluation Height, Weight, BMI Height: 5'8.00" Weight: 170lbs. 1.0oz. 77.774546ih; 26.00 BMI Method:Stated Exam Exam Vital Signs Date Time Temp Pulse Resp B/P (MAP) Pulse Ox O2 Delivery O2 Flow Rate FiO2 12/31/19 13:03 35.3 86 17 101/67 (78) Room Air Height & Weight Height: 5'8.00" Weight: 170lbs. 1.0oz. 77.073149ek; 26.00 BMI Method:Stated General Appearance: No Apparent Distress, WD/WN HEENT: PERRL/EOMI, TMs Normal, Normal ENT Inspection, Pharynx Normal Neck: Full Range of Motion, Normal Inspection, Non Tender, Supple Respiratory: Chest Non Tender, Decreased Breath Sounds (L> R) Capillary Refill: Less Than 3 Seconds Gastrointestinal: normal bowel sounds, non tender, soft, other Results Lab Laboratory Tests 12/31/19 13:10 Assessment/Plan Assessment/Plan Acute severe sepsis secondary to pneumonia with multiloculated complex left emphyema -Pt needs decortication procedure -I discussed with Dr. Milton and Dr. Yang and they agree. -Will attempt to transfer to [place] for thoracic surgery. -Continue Cefepime and Vanco -[place] cultures -IVF -Influenza is negative Hypernatremia -repeat stat labs /2 -Currently on 1/2 NS at 150. Metabolic lactic acidosis - improving -IVF -Monitor HX of CVAs Pt has a current PEG tube. Called [facility] for transfer they have accepted pt. They will call back with room assignment. Currently unable to contact . RN is going to continue to contact . CYN ARREAGA DO Dec 31, 2019 17:37
--- NOTE | 2019-12-31 17:51 | NUR ---
CR 1.08; CR CL ~67; WT 79.4 KG; VANCO 1500 MG IV GIVEN IN ER; CONTINUE WITH VANCO 1000 MG IV Q12H X 3 DAYS
[2019-12-31] MEDS ORDERED: 1/2 NS W/KCL 20 MEQ/L 1,000 ML IV ONE (17:58)
[2019-12-31] MEDS ORDERED: ACETAMINOPHEN 325 MG TABLET PO PRN (18:00)
[2019-12-31] MEDS ORDERED: CATHETER FLUSH 10 ML SYR IV PRN (18:00)
[2019-12-31] MEDS ORDERED: fentaNYL INJECTION 100 MCG/2 ML AMP IV PRN (18:00)
[2019-12-31] MEDS ORDERED: HYDROcodone/APAP 5 MG/325 MG (LORTAB) TAB PO PRN (18:00)
[2019-12-31] MEDS: 1/2 NS W/KCL 20 MEQ/L 1,000 ML IV SCH (18:04)
--- NOTE | 2019-12-31 18:52 | NUR ---
DR. ARREAGA AT PT BEDSIDE TO TALK TO PT ABOUT POTENTIAL TRANSFER DUE TO NEED FOR THORACIC SURGEON.
[2019-12-31 20:24] LABS: BASOPHILS # (AUTO) 0.1 10^3/uL (0.0-0.1); BASOPHILS % (AUTO) 0 % (0-10); EOSINOPHILS % (AUTO) 0 % (0-10); HEMATOCRIT 37 % (40-54); HEMOGLOBIN 11.6 g/dL (13.3-17.7); LYMPHOCYTES # (AUTO) 2.2 10^3/uL (1.0-4.0); LYMPHOCYTES % (AUTO) 8 % (12-44); MEAN CORPUSCULAR HEMOGLOBIN 33 pg (25-34); MEAN CORPUSCULAR HGB CONC 32 g/dL (32-36); MEAN CORPUSCULAR VOLUME 105 fL (80-99); MEAN PLATELET VOLUME 12.1 fL (9.0-12.2); MONOCYTES # (AUTO) 0.5 10^3/uL (0.0-1.0); MONOCYTES % (AUTO) 2 % (0-12); NEUTROPHILS # (AUTO) 25.2 10^3/uL (1.8-7.8); NEUTROPHILS % (AUTO) 90 % (42-75); PLATELET COUNT 335 10^3/uL (130-400); WHITE BLOOD COUNT 28.1 10^3/uL (4.3-11.0)
[2019-12-31 20:35] LABS: CHLORIDE 125 MMOL/L (98-107); POTASSIUM 3.6 MMOL/L (3.6-5.0); SODIUM 157 MMOL/L (135-145)
[2019-12-31 20:36] LABS: CALCIUM 7.7 MG/DL (8.5-10.1)
[2019-12-31 20:37] LABS: GLUCOSE 84 MG/DL (70-105)
[2019-12-31 20:38] LABS: CARBON DIOXIDE 21 MMOL/L (21-32)
[2019-12-31 20:40] LABS: GFR ESTIMATED > 60
[2019-12-31 20:41] LABS: BUN/CREATININE RATIO 36
[2019-12-31] MEDS ORDERED: WATER (STERILE) FOR INJECTION 10 ML ONE (20:54)
[2019-12-31] MEDS ORDERED: CEFEPIME 1 GM (MAXIPIME) VIAL ONE (20:54)
[2019-12-31] MEDS: CEFEPIME 1,000 MG/SWFI 10 ML IV PUSH IV SCH ×2 (21:13)
[2020-01-01] VITALS (13 sets, daily range): BP systolic 103–125; BP diastolic 60–88
[2020-01-01] MEDS ORDERED: CEFEPIME 1 GM (MAXIPIME) VIAL ONE ×2 (00:58→07:58)
[2020-01-01] MEDS ORDERED: WATER (STERILE) FOR INJECTION 10 ML ONE ×2 (00:58→07:58)
[2020-01-01] MEDS: CEFEPIME 1,000 MG/SWFI 10 ML IV PUSH IV SCH ×4 (01:16→08:09)
[2020-01-01] MEDS: 1/2 NS W/KCL 20 MEQ/L 1,000 ML IV SCH ×2 (01:17→08:10)
[2020-01-01] MEDS ORDERED: VANCOMYCIN 1 GM/NS 250 ML IVPB IV SCH ×2 (02:00)
[2020-01-01 03:52] LABS: BASOPHILS # (AUTO) 0.1 10^3/uL (0.0-0.1); BASOPHILS % (AUTO) 0 % (0-10); EOSINOPHILS % (AUTO) 0 % (0-10); HEMATOCRIT 35 % (40-54); HEMOGLOBIN 11.2 g/dL (13.3-17.7); LYMPHOCYTES # (AUTO) 2.1 10^3/uL (1.0-4.0); LYMPHOCYTES % (AUTO) 7 % (12-44); MEAN CORPUSCULAR HEMOGLOBIN 33 pg (25-34); MEAN CORPUSCULAR HGB CONC 32 g/dL (32-36); MEAN CORPUSCULAR VOLUME 105 fL (80-99); MEAN PLATELET VOLUME 11.9 fL (9.0-12.2); MONOCYTES # (AUTO) 0.6 10^3/uL (0.0-1.0); MONOCYTES % (AUTO) 2 % (0-12); NEUTROPHILS # (AUTO) 24.7 10^3/uL (1.8-7.8); NEUTROPHILS % (AUTO) 90 % (42-75); PLATELET COUNT 292 10^3/uL (130-400); WHITE BLOOD COUNT 27.6 10^3/uL (4.3-11.0)
[2020-01-01 04:14] LABS: CHLORIDE 126 MMOL/L (98-107); POTASSIUM 3.5 MMOL/L (3.6-5.0); SODIUM 158 MMOL/L (135-145)
[2020-01-01 04:15] LABS: CALCIUM 7.4 MG/DL (8.5-10.1)
[2020-01-01 04:16] LABS: GLUCOSE 85 MG/DL (70-105); TOTAL PROTEIN 5.8 GM/DL (6.4-8.2)
[2020-01-01 04:17] LABS: CARBON DIOXIDE 21 MMOL/L (21-32)
[2020-01-01 04:18] LABS: BILIRUBIN,TOTAL 0.4 MG/DL (0.1-1.0)
[2020-01-01 04:19] LABS: PHOSPHORUS 4.3 MG/DL (2.3-4.7)
[2020-01-01 04:20] LABS: ALKALINE PHOSPHATASE 234 U/L (40-136); CREATININE SERUM 0.79 MG/DL (0.60-1.30); GFR ESTIMATED > 60
[2020-01-01 04:21] LABS: BUN/CREATININE RATIO 33
[2020-01-01 04:23] LABS: ALANINE AMINOTRANSFERASE 67 U/L (0-55); MAGNESIUM 2.3 MG/DL (1.6-2.4)
--- NOTE | 2020-01-01 05:25 | History & Physical-Hospitalist ---
History of Present Illness HPI/Chief Complaint CC: Empyema HPI: This is a 64yoWM who presented with SOB, COVID swab pending but upon further evaluation he was found to have empyema. CT scan obtained, Dr. Frazier evaluated it and felt like he needed to go to cardiothoracic surgery for decortication, so he was arranged to go to [facility] and still waiting on a bed for that to occur, WBC remains 27,000. He is stable. Source: patient, RN/MD Exam Limitations: clinical condition Date Seen 01/01/20 Time Seen by a Provider: 10:00 Attending Physician Nissa Milton DO PCP No,Local Physician Referring Physician Date of Admission Dec 31, 2019 at 16:51 Home Medications & Allergies Home Medications Reviewed patient Home Medication Reconciliation performed by pharmacy medication reconciliations soils technician and/or nursing. Patients Allergies have been reviewed. Allergies Allergies Coded Allergies No Known Allergies (Verified Allergy, Unknown, 07/18/17) Past Hmdkemw-Xozasc-Dkfzdg Hx Past Med/Social Hx: Reviewed Nursing Past Med/Soc Hx, Reviewed and Corrections made Patient Social History Marrital Status: single Employed/Student: unemployed Alcohol Use: Denies Use Recreational Drug Use: No Smoking Status: Never a Smoker 2nd Hand Smoke Exposure: No Recent Foreign Travel: No Contact w/other who traveled: No Recent Hopitalizations: Yes Recent Infectious Disease Expo: No Immunizations Up To Date Date of Pneumonia Vaccine: Dec 30, 2017 Seasonal Allergies Seasonal Allergies: No Past Medical History Respiratory: Pneumonia Cardiac: Hypertension Psychosocial: Anxiety, Personality Disorder, Schizophrenia, Depression Family History FH: dementia G8 SISTER FH: neurologic disorder G8 SISTER Review of Systems Constitutional: see HPI, fever Respiratory: cough, dyspnea on exertion Physical Exam Physical Exam Vital Signs Vital Signs - First Documented 12/31/19 12/31/19 12/31/19 13:03 17:32 17:47 Temp 35.3 Pulse 86 Resp 17 B/P (MAP) 101/67 (78) Pulse Ox 95 O2 Delivery Room Air O2 Flow Rate 2.00 Capillary Refill : Less Than 3 Seconds Height, Weight, BMI Height: 5'8.00" Weight: 170lbs. 1.0oz. 77.567174rd; 25.48 BMI Method:Stated General Appearance: No Apparent Distress, Chronically ill, Thin Eyes: Right Eye Normal Inspection, Right Eye PERRL HEENT: PERRL/EOMI, Normal ENT Inspection, Pharynx Normal, Moist Mucous Membranes Neck: Full Range of Motion, Normal Inspection, Non Tender Respiratory: Chest Non Tender, No Accessory Muscle Use, No Respiratory Distress, Decreased Breath Sounds, Wheezing Cardiovascular: Regular Rate, Rhythm, No Edema, No Gallop, No JVD, No Murmur, Normal Peripheral Pulses Gastrointestinal: Normal Bowel Sounds, No Organomegaly, No Pulsatile Mass, Non Tender, Soft Back: Normal Inspection, No CVA Tenderness, No Vertebral Tenderness Extremity: Normal Capillary Refill, Normal Inspection, Normal Range of Motion, Non Tender, No Calf Tenderness, No Pedal Edema Neurologic/Psychiatric: Alert, Oriented x3, No Motor/Sensory Deficits, Normal Mood/Affect Skin: Normal Color, Warm/Dry Lymphatic: No Adenopathy Results Results/Procedures Labs Laboratory Tests 12/31/19 13:10 12/31/19 20:05 01/01/20 03:40 Patient resulted labs reviewed. Assessment/Plan Admission Diagnosis Assessment: Empyema Mental illness Leukocytosis Plan: Tx to CTS Admission Status: Inpatient Order (span 2 midnights) Reason for Inpatient Admission: empyema Diagnosis/Problems Diagnosis/Problems (1) Empyema (2) Pneumonia Status: Acute Clinical Quality Measures DVT/VTE Risk/Contraindication: Risk Factor Score Per Nursin RFS Level Per Nursing on Admit: 4+=Very High NISSA MILTON DO Jan 01, 2020 05:25
--- NOTE | 2020-01-01 05:43 | Pulmonary Progress Note ---
Subjective Time Seen by a Provider: 05:40 Subjective/Events-last exam Awaiting bed placement. Sepsis Event Evaluation Height, Weight, BMI Height: 5'8.00" Weight: 170lbs. 1.0oz. 77.441734er; 25.48 BMI Method:Stated Focused Exam Lactate Level 12/31/19 15:28: Lactic Acid Level 3.01*H 12/31/19 17:50: Lactic Acid Level 2.47*H 12/31/19 20:05: Lactic Acid Level 1.47 Exam Exam Vital Signs Date Time Temp Pulse Resp B/P (MAP) Pulse Ox O2 Delivery O2 Flow Rate FiO2 01/01/20 04:00 66 23 123/69 (87) 97 Nasal Cannula 6.00 01/01/20 04:00 Nasal Cannula 6.00 01/01/20 03:00 75 31 124/67 (86) 98 Nasal Cannula 6.00 01/01/20 02:00 69 16 116/70 (85) 96 Nasal Cannula 6.00 01/01/20 01:00 80 01/01/20 01:00 71 27 116/64 (81) 98 Nasal Cannula 6.00 01/01/20 00:00 72 29 117/69 (85) 97 Nasal Cannula 6.00 01/01/20 00:00 Nasal Cannula 6.00 12/31/19 23:41 98 Nasal Cannula 6.00 12/31/19 23:00 73 29 115/70 (85) 98 Nasal Cannula 6.00 12/31/19 22:00 66 29 115/65 (82) 96 Nasal Cannula 6.00 12/31/19 21:00 Nasal Cannula 6.00 12/31/19 21:00 80 32 118/69 (85) 97 Nasal Cannula 6.00 12/31/19 20:00 Nasal Cannula 6.00 12/31/19 20:00 71 28 101/74 (83) 98 Nasal Cannula 6.00 12/31/19 19:25 Nasal Cannula 6.00 12/31/19 19:12 73 12/31/19 19:00 69 25 115/72 (86) 99 Nasal Cannula 3.00 12/31/19 18:53 88 18 129/73 (91) 92 Nasal Cannula 3.00 12/31/19 18:12 75 18 105/69 (81) 74 Nasal Cannula 3.00 12/31/19 18:00 79 18 111/71 (84) 96 Nasal Cannula 3.00 12/31/19 17:53 36.3 70 16 145/72 94 Nasal Cannula 2.00 12/31/19 17:48 Nasal Cannula 2.00 12/31/19 17:47 36.3 70 16 145/72 (96) 94 Nasal Cannula 2.00 12/31/19 17:32 84 18 112/67 95 Room Air 12/31/19 13:03 35.3 86 17 101/67 (78) Room Air I & O 01/01/20 07:00 Intake Total 3770 ml Output Total 350 ml Balance 3420 ml Height & Weight Height: 5'8.00" Weight: 170lbs. 1.0oz. 77.734173tm; 25.48 BMI Method:Stated General Appearance: No Apparent Distress, WD/WN HEENT: PERRL/EOMI, TMs Normal, Normal ENT Inspection, Pharynx Normal Neck: Full Range of Motion, Normal Inspection, Non Tender, Supple Respiratory: Chest Non Tender, Decreased Breath Sounds (L> R) Capillary Refill: Less Than 3 Seconds Gastrointestinal: normal bowel sounds, non tender, soft, other Results Lab Laboratory Tests 12/31/19 13:10 12/31/19 20:05 01/01/20 03:40 Assessment/Plan Assessment/Plan Acute severe sepsis secondary to pneumonia with multiloculated complex left emphyema -Pt needs decortication procedure -Awaiting bed at [facility] -Continue Cefepime and Vanco -Eastman cultures -IVF -Influenza is negative Hypernatremia -Currently on 1/2 NS at 150. Metabolic lactic acidosis - improving -IVF -Monitor Hypokalemia -replace Elevated LFTs -Monitor HX of CVAs Pt has a current PEG tube. CYN ARREAGA DO Jan 01, 2020 05:43
[2020-01-01] MEDS ORDERED: KCL 20 MEQ TAB (K-DUR) PO SCH (06:00)
[2020-01-01] MEDS ORDERED: MAGNESIUM 1 GM/100 ML IVPB 100 ML IV SCH (06:00)
[2020-01-01] MEDS ORDERED: POTASSIUM CL 10MEQ/50ML IVPB 50 ML IV SCH (06:00)
[2020-01-01] MEDS: POTASSIUM CL 10MEQ/50ML IVPB 50 ML IV SCH ×4 (06:26→09:14)
[2020-01-01] MEDS ORDERED: LACTATED RINGERS 1,000 ML IV PRN (07:05)
[2020-01-01] MEDS ORDERED: AMAN100T PO (11:13)
[2020-01-01] MEDS ORDERED: BENZ0.5T42 PO (11:13)
[2020-01-01] MEDS ORDERED: VENL150C98 PO (11:13)
[2020-01-01] MEDS ORDERED: MELA10CA2 PO (11:13)
[2020-01-01] MEDS ORDERED: PANT40SU PO (11:13)
[2020-01-01] MEDS ORDERED: VENL-48 PO (11:13)
[2020-01-01] MEDS ORDERED: ASPI-999 PO (11:13)
--- NOTE | 2020-01-01 11:42 | NUR ---
Report called to Ned CONFERENCE MANAGERRobbie who will assume pt care at time of pt arrival. VSS at this time. EMS called for transport.
[2020-01-01] MEDS ORDERED: LORA2ORA PO (12:24)
--- NOTE | 2020-01-01 12:25 | NUR ---
UNABLE TO SPEAK WITH PT AT THIS TIME- I DID SPEAK WITH HIS WHO TOLD ME HIS HOME MEDS WERE BROUGHT UP HERE. I SPOKE WITH ABELARDO GAITAN AND SHE DID HAVE THE PTS HOME MEDS AND HAD ENTERED THEM IN THE MED REC. I WENT THRU THE EXT MED HISTORY AND GOT A MED LIST FROM [facility] TO COMPLETE THE MED REC
--- NOTE | 2020-01-01 12:42 | NUR ---
EMS given bedside report at this time. VSS. Marino RN, Robbie notified of pt's departure from facility also at this time. Pt's medications and personal belongings sent with pt at time of transfer. Simi, pt's daughter, called and updated at this time. Pt to arrive to room 258.
--- NOTE | 2020-01-02 04:54 | Discharge Summary ---
Discharge Summary Hospital Course Was the Problem List Reviewed?: Yes Problems/Dx: (1) Empyema (2) Pneumonia Status: Acute Hospital Course Date of Admission: Dec 31, 2019 at 16:51 Admission Diagnosis : Family Physician/Provider: No,Local Physician Date of Discharge: 01/02/20 Discharge Diagnosis: empyema, mental illness Hospital Course: see HPI Labs and Pending Lab Test: Microbiology 12/31/19 Influenza Types A,B Antigen (BRODY) - Final, Complete 12/31/19 Urine Culture - Final, Complete NO GROWTH 12/31/19 Blood Culture - Preliminary, Resulted No growth Home Meds Active Reported Lorazepam Intensol (Lorazepam) 2 Mg/1 Ml Oral.conc 0.5 Ml PO BID PRN Melatonin 10 Mg Capsule 10 Mg PO HS Aspirin 81 Mg Tab.chew 81 Mg PO DAILY Venlafaxine HCl ER (Venlafaxine HCl) 150 Mg Cap.er.24h 150 Mg PO DAILY TAKES 150MG + 37.5MG TO EQUAL 187.5MG DAILY Benztropine Mesylate 0.5 Mg Tablet 0.5 Mg PO DAILY Amantadine (Amantadine HCl) 100 Mg Tablet 100 Mg PO BID Protonix (Pantoprazole Sodium) 40 Mg Granpkt.dr 40 Mg PO DAILY 1 PACKET MIXED WITH APPLES JUICE OR APPLESAUSE DAILY Venlafaxine HCl ER (Venlafaxine HCl) 37.5 Mg Cap.er.24h 37.5 Mg PO DAILY TAKES 150MG + 37.5MG TO EQUAL 187.5MG DAILY Assessment/Pt Instructions tx rueda Discharge Planning: <30 minutes discharge planning Discharge Instructions Discharge Diet: No Restrictions Activity as Tolerated: Yes Discharge Physical Examination Vital Signs Vital Signs Date Time Temp Pulse Resp B/P (MAP) Pulse Ox O2 Delivery O2 Flow Rate FiO2 01/01/20 11:00 68 26 103/67 (79) 99 Nasal Cannula 6.00 01/01/20 08:13 36.6 General Appearance: No Apparent Distress, WD/WN Allergies: Coded Allergies: No Known Allergies (Verified Allergy, Unknown, 07/18/17) Discharge Summary Date of Admission Dec 31, 2019 at 16:51 Date of Discharge Jan 01, 2020 at 12:44 Admission Diagnosis Assessment: Empyema Mental illness Leukocytosis Plan: Tx to CTS Discharge Diagnosis (1) Empyema (2) Pneumonia Status: Acute Clinical Quality Measures DVT/VTE Risk/Contraindication: Risk Factor Score Per Nursin RFS Level Per Nursing on Admit: 4+=Very High ARLENE MARINO DO Jan 02, 2020 04:54
--- NOTE | 2020-01-06 03:49 | Physician Query Clarification ---
PQ-Uncertain Diagnosis Admission/Discharge Admission Date: Dec 31, 2019 at 16:51 Discharge Date: Jan 01, 2020 at 12:44 ARLENE Zee DO The medical record reflects the following clinical scenario: History/Risk Factors: 64 y/o male patient presented with SOB, COVID swab pending but upon further evaluation he was found to have empyema. Hand P, 12/30: Emphyma, mental illness, leukocytosis, Pulmonary progress notes, 12/31: Acute severe sepsis secondary to pneumonia with multiloculated complex left emphye. Patient needs decortication procedure , Continue Cefepime and Vancomycin, IVF. Discharge summary, 12/31: Emphyma, mental illness, leukocytosis. Clinical Findings: WBC- 29.3 H, Lactic acid- 3.16 H as per lab report. Treatment:Cefepime and Vamcomycin IV Question: Is Sepsis a clinically valid diagnosis? Sepsis was documented in the Pulmonary Progress notes, 12/31 with no further documentation in the medical record. Please document a response in Progress Note or Discharge Summary. 1. Yes, clinically valid, Sepsis resolved. 2. No, Sepsis ruled out. 3. Other, with explanation of clinical findings. 4. Undetermined, no explanation for clinical findings. PHYSICIAN RESPONSE Diagnosis clinically valid: Yes, Conditon resolved Please remember a lack of response to the above will prompt a phone page by CDI/Coding staff. In responding to this query, please exercise your independent professional judgment. The purpose of this communication is to more accurately reflect the complexity of your patients condition. The fact that a question is asked does not imply that any particular answer is desired or expected. Thank you for your timely response to this clarification. Requestors name: [Ross Sharon ] Phone # [ ] THIS PHYSICIAN QUERY FORM IS A PERMANENT PART OF THE MEDICAL RECORD SHARON KINGSTON Jan 06, 2020 03:49 ARLENE MARINO DO Jan 06, 2020 05:03
== END 2020-01-01 12:44 | disposition short-term general hospital (02) | DRG 871 ==
LOC: EDUNIT# 12:50 → ER 12:51 → CSD 16:51 → ICU 19:00
PROVIDERS: ADMIT Internal Medicine; ATTEND Internal Medicine
DX: A41.9 Sepsis, unspecified organism (principal); J86.9 Pyothorax without fistula; J18.9 Pneumonia, unspecified organism; E87.2 Acidosis; E87.0 Hyperosmolality and hypernatremia; I10 Essential (primary) hypertension; F32.9 Major depressive disorder, single episode, unspecified; F20.9 Schizophrenia, unspecified; F60.9 Personality disorder, unspecified; F41.9 Anxiety disorder, unspecified; E87.6 Hypokalemia; Z86.73 Personal history of transient ischemic attack (TIA), and cerebral infarction without residual deficits
CPT/HCPCS: 36415; 71045; 71275; 80048; 80053; 81000; 82805; 82962; 83605; 83735; 84100; 84145; 84484; 85007; 85025; 85027; 85379; 85610; 85730; 86141; 87040; 87081; 87088; 87635; 87804; 93005